=== PATIENT | female | born 1975 | race Caucasian/White ===

== ENCOUNTER 2019-04-28 01:21 | Day surgery (SDC) | payer OTHER, SELFPAY ==
[2019-04-13 14:04] VITALS: BMI 46.5
--- NOTE | 2019-04-28 08:35 | WPDANESEPP ---
Anes - Eval Pre Procedure Procedure: Operation Date: 04/28/19 13:30 Proposed Procedures p Hysteroscopy, Dilation and Curettage - Wesley Serrano MD Date/Time: 04/28/19 08:35 Pre Op Diagnosis: abn uterine bleeding, fibroids Patient Data Age: 44 Gender: F Height: 1.7 m Weight: 134.72 kg Allergies Allergy/AdvReac Type Severity Reaction Status Date / Time NSAIDS (Non-Steroidal Allergy Ulcers Verified 04/13/19 14:08 Anti-Inflamma Home Medications Medication Instructions Recorded Confirmed Type Vitamin B-12 1 tablet PO DAILY 04/13/19 04/13/19 History Vitamin D3 1 tablet PO DAILY 04/13/19 04/13/19 History biotin 1 tablet PO DAILY 04/13/19 04/13/19 History calcium carbonate [Calcium 600] 600 mg PO DAILY 04/13/19 04/13/19 History omeprazole 20 mg PO DAILY 04/13/19 04/13/19 History Patient hx anesthesia problems: none Family hx anesthesia problems: none PMFSH Past Medical History Medical History GERD (gastroesophageal reflux disease) PUD (peptic ulcer disease) Surgical History Surgical History History of cholecystectomy History of gastric bypass History of tonsillectomy Exam Day of Procedure 04/28/19 08:35 Patient weight: morbidly obese
--- NOTE | 2019-04-28 10:02 | P.HP_ITS ---
History of Present Illness History of Present Illness Consent: Risks, benefits, and alternatives have been discussed and questions answered. Patient agrees to proceed with procedure. Chief complaint: abn uterine bleeding, fibroids Narrative: Jessie Nguyen is a 44 year old female presented with histoy of abnormal uterine bleeding.patient repots bleeding inbetween cycles and history of fibroids. [facility] Past Medical History Medical History GERD (gastroesophageal reflux disease) PUD (peptic ulcer disease) Surgical History Surgical History History of cholecystectomy History of gastric bypass History of tonsillectomy Meds Home Medications and Allergies Home Medications Medication Instructions Recorded Confirmed Type Vitamin B-12 1 tablet PO DAILY 04/13/19 04/13/19 History Vitamin D3 1 tablet PO DAILY 04/13/19 04/13/19 History biotin 1 tablet PO DAILY 04/13/19 04/13/19 History calcium carbonate [Calcium 600] 600 mg PO DAILY 04/13/19 04/13/19 History omeprazole 20 mg PO DAILY 04/13/19 04/13/19 History Allergies Allergy/AdvReac Type Severity Reaction Status Date / Time NSAIDS (Non-Steroidal Allergy Ulcers Verified 04/13/19 14:08 Anti-Inflamma Assessment and Plan Assessment and plan (1) Abnormal uterine bleeding (AUB): Code(s): N93.9 - Abnormal uterine and vaginal bleeding, unspecified Status: Acute Assessment and Plan: Scheduled for a hysteroscopy dilation and curettage. risk and benefits reviewed with patient in detail.
[2019-04-28 11:44] VITALS: BP 140/82; PULSE 82; RESP 20; TEMP 36.4; O2SAT 99
--- NOTE | 2019-04-28 11:55 | P.PNAN_ITS ---
Anes - Initial Pre Proc Eval Procedure: Operation Date: 04/28/19 13:30 Proposed Procedures p Hysteroscopy, Dilation and Curettage - Wesley Serrano MD Date/Time: 04/28/19 11:55 Surgeon: Wesley Serrano MD Pre Op Diagnosis: abn uterine bleeding, fibroids Patient Data Age: 44 Gender: F Height: 1.7 m Weight: 133.4 kg Last Vital Signs Temp 36.4 C 04/28/19 11:44 Pulse 82 04/28/19 11:44 Resp 20 04/28/19 11:44 BP 140/82 04/28/19 11:44 Pulse Ox 99 04/28/19 11:44 Allergies Allergy/AdvReac Type Severity Reaction Status Date / Time NSAIDS (Non-Steroidal Allergy Ulcers Verified 04/13/19 14:08 Anti-Inflamma Home Medications Medication Instructions Recorded Confirmed Type Vitamin B-12 1 tablet PO DAILY 04/13/19 04/13/19 History Vitamin D3 1 tablet PO DAILY 04/13/19 04/13/19 History biotin 1 tablet PO DAILY 04/13/19 04/13/19 History calcium carbonate [Calcium 600] 600 mg PO DAILY 04/13/19 04/13/19 History omeprazole 20 mg PO DAILY 04/13/19 04/13/19 History Patient hx anesthesia problems: none Family hx anesthesia problems: none [facility] Past Medical History Medical History (Updated 04/28/19 @ 10:04 by Wesley Serrano MD) Abnormal uterine bleeding (AUB) GERD (gastroesophageal reflux disease) PUD (peptic ulcer disease) Surgical History Surgical History History of cholecystectomy History of gastric bypass History of tonsillectomy Anes - Eval Final PreProcedure Day of Procedure 04/28/19 11:55 Patient weight: morbidly obese Heart: regular rate and rhythm Lungs: clear to auscultation and normal air movement Airway: Mallampati scale class II Neurological: alert and oriented Last oral intake: 2 hours (tea 1000) ASA classification: III Emergent: no Anesthetic plan: proceed Anesthesia type and monitoring: general and standard monitoring Informed Consent: The patient's anesthetic plan and its attendant risks and benefits were discussed with the patient/family/POA. Questions were solicited and answers provided to the satisfaction of the patient/family/POA.
[2019-04-28] MEDS: LACTATED RINGERS 1,000 ML 30 ML IV CONT ×2 (12:00→14:34)
[2019-04-28 13:52] LABS: Beta HCG Quantitative < 2.39 mIU/ML
--- NOTE | 2019-04-28 14:31 | PM.OP ---
Procedure Note - Brief Procedure Note - Brief Date of procedure: 04/28/19 Pre-op diagnosis: abn uterine bleeding, fibroids Post-op diagnosis: same Procedure performed: hysteroscopy dilation and curettage Anesthesia: MAC and local Surgeon: Wesley Serrano MD Estimated blood loss (mL): 20 Drains: No Packing: No Pathology: yes Complications: None Condition: stable Disposition: observation Findings: large uterine cavity
[2019-04-28 14:34] VITALS: BP 113/78; PULSE 87; RESP 16; O2SAT 96
[2019-04-28 15:00] VITALS: BP 114/75; PULSE 68; RESP 14
--- NOTE | 2019-04-29 18:46 | OP_ITS ---
DATE OF PROCEDURE: 04/28/2019 PREOPERATIVE DIAGNOSIS: Abnormal uterine bleeding. POSTOPERATIVE DIAGNOSIS: Abnormal uterine bleeding. PROCEDURE PERFORMED: Hysteroscopy with dilation and curettage. ANESTHESIA: Paracervical block with MAC. COMPLICATIONS: None. ESTIMATED BLOOD LOSS: 20 cc. PROCEDURE IN DETAIL: The patient was taken to the operating room with IV running, prepped, and draped in the normal sterile fashion and placed in the dorsal lithotomy position. A bivalve speculum was placed into the vagina. Anterior lip of the cervix was grasped with single-tooth tenaculum and serially dilated with Hegar dilators. A hysteroscope was introduced. Large uterine cavity. Hysteroscope was removed and the uterus was curettage in all 4 quadrants to a gritty texture. Specimen was sent to pathology. Instruments were removed from the patient's vagina. Hemostasis was assured at the tenaculum site. Sponge, lap, and needle counts were correct x2. D I MT: Johnny
== END 2019-04-28 15:15 | disposition home or self-care (01) ==
PROVIDERS: Anesthesiology; PCP Internal Medicine; Visit Provider Obstetrics & Gynecology
PROC: 0U5B8ZZ Destruction of Endometrium, Via Natural or Artificial Opening Endoscopic (ICD-10-PCS; CPT 58563; principal; 2019-04-28 13:30)
DX: N93.9 Abnormal uterine and vaginal bleeding, unspecified (principal); K21.9 Gastro-esophageal reflux disease without esophagitis; K27.9 Peptic ulcer, site unspecified, unspecified as acute or chronic, without hemorrhage or perforation; Z98.84 Bariatric surgery status; E66.01 Morbid (severe) obesity due to excess calories; Z68.42 Body mass index [BMI] 45.0-49.9, adult
CPT/HCPCS: 58558; 36415; 84702; 88305; A9270; J2250; J2405; J2704; J3010; J7030; J7120

== ENCOUNTER 2020-12-23 02:07 | Day surgery (SDC) | payer OTHER, SELFPAY ==
[2020-12-11 13:22] VITALS: BMI 45.5
--- NOTE | 2020-12-20 14:03 | PM.HPGS ---
History of Present Illness History of Present Illness Consent: Risks, benefits, and alternatives have been discussed and questions answered. Patient agrees to proceed with procedure. Chief complaint: nausea, abdominal pain, hx of gastric ulcer Narrative: Jessie Nguyen is a 45 year old female Was found to have severe esophagitis on endoscopy 5 years ago and now is having epigastric pain suggestive of ulcer. She is taking omeprazole 20 mg daily Review of Systems Review of Systems: All systems reviewed & are unremarkable except as noted in HPI and below PMFSH Past Medical History Medical History Abnormal uterine bleeding (AUB) GERD (gastroesophageal reflux disease) PUD (peptic ulcer disease) Surgical History Surgical History History of cholecystectomy History of gastric bypass History of tonsillectomy Social History Social History Smoking status: Never smoker Alcohol intake: former Substance use: never Substance use type: does not use Living arrangements: with family Spiritual care concerns: No Meds Home Medications and Allergies Home Medications Medication Instructions Recorded Confirmed Type Vitamin B-12 1 tablet PO DAILY 04/13/19 12/23/20 History Vitamin D3 1 tablet PO DAILY 04/13/19 12/23/20 History biotin 1 tablet PO DAILY 04/13/19 12/23/20 History calcium carbonate [Calcium 600] 600 mg PO DAILY 04/13/19 12/23/20 History omeprazole 20 mg PO DAILY 04/13/19 12/23/20 History Allergies Allergy/AdvReac Type Severity Reaction Status Date / Time NSAIDS (Non-Steroidal Allergy Severe Ulcers Verified 12/23/20 09:56 Anti-Inflamma Exam Const: General: alert Orientation/consciousness: patient oriented x3 Resp: Auscultation: clear to auscultation bilaterally Cardio: Rhythm: regular rhythm GI: GI Palp: Yes Soft to palpation and No Tenderness to palpation present (GI) Neuro: General: patient oriented x3 Assessment and Plan Assessment and plan (1) Epigastric pain: Code(s): R10.13 - Epigastric pain Status: Acute Assessment and Plan: EGD with possible biopsy or dilatation or cautery.
[2020-12-23 09:58] VITALS: BP 149/90; PULSE 87; RESP 21; TEMP 37.1; O2SAT 100; BMI 43.8
[2020-12-23] MEDS: LACTATED RINGERS 1,000 ML 150 ML IV CONT (10:01)
--- NOTE | 2020-12-23 10:15 | P.PNAN_ITS ---
Anes - Initial Pre Proc Eval Procedure: Operation Date: 12/23/20 11:00 Proposed Procedures p Esophagogastroduodenoscopy - Chirag Mata MD Date/Time: 12/23/20 10:15 Surgeon: Chirag Mata MD Pre Op Diagnosis: nausea, abdominal pain, hx of gastric ulcer Patient Data Age: 45 Gender: F Height: 1.7 m Weight: 127 kg Last Vital Signs Temp 37.1 C 12/23/20 09:58 Pulse 87 12/23/20 09:58 Resp 21 H 12/23/20 09:58 BP 149/90 H 12/23/20 09:58 Pulse Ox 100 12/23/20 09:58 Allergies Allergy/AdvReac Type Severity Reaction Status Date / Time NSAIDS (Non-Steroidal Allergy Severe Ulcers Verified 12/23/20 09:56 Anti-Inflamma Home Medications Medication Instructions Recorded Confirmed Type Vitamin B-12 1 tablet PO DAILY 04/13/19 12/23/20 History Vitamin D3 1 tablet PO DAILY 04/13/19 12/23/20 History biotin 1 tablet PO DAILY 04/13/19 12/23/20 History calcium carbonate [Calcium 600] 600 mg PO DAILY 04/13/19 12/23/20 History omeprazole 20 mg PO DAILY 04/13/19 12/23/20 History Patient hx anesthesia problems: none Family hx anesthesia problems: none Results Review: All pre-operative results and documents have been reviewed as part of the pre-operative evaluation. [facility] Past Medical History Medical History Abnormal uterine bleeding (AUB) GERD (gastroesophageal reflux disease) PUD (peptic ulcer disease) Surgical History Surgical History History of cholecystectomy History of gastric bypass History of tonsillectomy Social History Social History Smoking status: Never smoker Alcohol intake: former Substance use: never Substance use type: does not use Living arrangements: with family Spiritual care concerns: No Anes - Eval Final PreProcedure Day of Procedure 12/23/20 10:15 Patient weight: morbidly obese Heart: regular rate and rhythm Lungs: clear to auscultation Airway: Mallampati scale class II Neurological: alert and oriented Last oral intake: >/= 8 hours ASA classification: III Emergent: no Anesthetic plan: proceed Anesthesia type and monitoring: general GIVS and standard monitoring Results Review: All pre-operative results and documents have been reviewed as part of the pre-operative evaluation. Informed Consent: The patient's anesthetic plan and its attendant risks and benefits were discussed with the patient/family/POA. Questions were solicited and answers provided to the satisfaction of the patient/family/POA.
[2020-12-23] MEDS: BENZOCAINE (*SP) 60 ML SPRAY CAN (HURRICAINE) 1 SPRAY MUCOUS MEM (10:51)
[2020-12-23] MEDS: SIMETHICONE ORAL SUSPENSION 20 MG/0.3 ML 30 ML BOTTLE 0.6 ML IRRIGATION (10:56)
[2020-12-23 11:02] VITALS: BP 101/91; PULSE 79; RESP 22; O2SAT 100
[2020-12-23 11:12] VITALS: BP 114/70; PULSE 82; RESP 23; O2SAT 100
[2020-12-23 11:22] VITALS: BP 108/66; PULSE 68; RESP 16; O2SAT 100
== END 2020-12-23 11:40 | disposition home or self-care (01) ==
PROVIDERS: PCP Internal Medicine; Visit Provider Internal Medicine Gastroenterology
PROC: 0DJ08ZZ Inspection of Upper Intestinal Tract, Via Natural or Artificial Opening Endoscopic (ICD-10-PCS; CPT 43235; principal; 2020-12-23 11:00)
DX: R10.13 Epigastric pain (principal); K21.9 Gastro-esophageal reflux disease without esophagitis; K31.89 Other diseases of stomach and duodenum; R11.0 Nausea; Z87.11 Personal history of peptic ulcer disease; E66.01 Morbid (severe) obesity due to excess calories; Z68.41 Body mass index [BMI] 40.0-44.9, adult
CPT/HCPCS: 43235; J2704; J7120

== ENCOUNTER 2021-11-21 08:48 | Outpatient (CLI) | payer OTHER, SELFPAY ==
[2021-11-21 09:27] LABS: Hemoglobin 11.4 g/dL (12.0-15.0)
== END 2021-11-21 08:49 | disposition home or self-care (01) ==
LOC: ANHSURGERY 08:51
PROVIDERS: PCP Internal Medicine; Visit Provider Obstetrics & Gynecology Gynecology
DX: Z01.818 Encounter for other preprocedural examination (principal); D21.9 Benign neoplasm of connective and other soft tissue, unspecified
CPT/HCPCS: 36415; 85014; 85018; 86850; 86900; 86901

== ENCOUNTER 2022-03-30 00:44 | Day surgery (SDC) | payer OTHER, SELFPAY ==
[2022-03-19 09:41] VITALS: BMI 44.0
--- NOTE | 2022-03-19 09:46 | PC.NURSE ---
Report to the Outpatient Waiting Room, entrance under the green pavilion located off [facility], at time 0815 on date 03/30/22. Planned Procedure Time: 1015. Time changes happen often and if your time is changed the preop area will call you the afternoon before. - You and your visitor will be asked to self-screen and do not enter if you have any COVID symptoms. - Only one visitor is requested with a max of two and NO children visitors are allowed at this time. - The patient visitor may be requested to leave or wait in car when not with patient due to distancing restrictions. - A mask is optional within the hospital at this time. Patients may have clear liquids (water, carbonated beverages, clear teas, apple juice) until 3 hours prior to surgery with a maximum of 20 ounces. - No food from midnight until time of surgery Take the following medications with a SIP of water the morning of surgery: NONE DO NOT STOP ANY OF YOUR OTHER PRESCRIPTION MEDICATIONS PRIOR TO SURGERY?EXCEPT THE FOLLOWING Medications to discontinue per physician: VITAMINS/SUPPLEMENTS Date to take last dose: 02/23/22 Please no make-up, nail belizean, hairspray, perfume, deodorant, or body powder the day of surgery. No jewelry (including any body piercings) or valuables the day of surgery, leave them at home. Please take a shower or bath the night before, or the morning of, surgery with an antibacterial soap. Wear comfortable, loose fitting clothing. - Jewelry must be removed prior to entering the operating room. Rings and piercings that are not removed may be cut off. - The hospital will not accept responsibility for valuables. - Please leave all valuables, including medications, at home the day of surgery. If you are going home after surgery, a licensed class a truck driver must drive you home. - NO public transportation without another adult if you receive anesthesia. - We recommend that an adult stay with you for 24 hours following discharge. - We also recommend that you do not drive, make important decision, drink alcoholic beverages, or take any drugs that were not prescribed by your health care provider for at least 24 hours after your discharge time. Follow any additional instructions given to you from your surgeon. If you or anyone in your household have experienced Covid symptoms in the past week, please notify your surgeon or the nurse liaison at the phone number below for possible testing. Telephone instructions given to PT - SEAN KOENIG and asked if any additional questions and then verbalized understanding. Patient advised to call surgeon office or pre surgery nurse liaison [phone] if any additional questions.
--- NOTE | 2022-03-30 07:40 | WPDHPUPDATE1 ---
History and Physical Update Update Date/Time: 03/30/22 07:40 History and Physical has been reviewed, including an updated exam of the patient. There are NO changes in the patient's condition. Risks, benefits, and alternatives have been discussed and questions answered. Patient agrees to proceed with procedure.
--- NOTE | 2022-03-30 07:41 | PM.HPGS ---
History of Present Illness History of Present Illness Consent: Risks, benefits, and alternatives have been discussed and questions answered. Patient agrees to proceed with procedure. Chief complaint: menorrhagia Narrative: Jessie Nguyen is a 46 year old female with prolonged vaginal bleeding. The patient has a known enlarged fibroid uterus and has been considering hysterectomy. The patient cycles had been regular changing only 2 to 3 pads per day until November of 2021 when she had the onset of daily bleeding. It was recommended to proceed with workup of the bleeding with hysteroscopy D and C. The risks of infection, bleeding, and perforation are reviewed. The patient voices understanding and agrees to proceed. Review of Systems Review of Systems: not repeated day of surgery; patient states no changes in status PMFSH Past Medical History Medical History (Updated 03/30/22 @ 08:59 by Tereza Vargas MD) GERD (gastroesophageal reflux disease) PUD (peptic ulcer disease) Surgical History Surgical History (Updated 03/30/22 @ 08:59 by Tereza Vragas MD) History of cholecystectomy History of gastric bypass History of loop electrical excision procedure (LEEP) 2011 with severe dysplasia and negative margins History of tonsillectomy Social History Social History Smoking status: Never smoker Alcohol intake: never Substance use: never Substance use type: does not use Living arrangements: with family Additional living arrangements comments: PARENTS Spiritual care concerns: No Meds Home Medications and Allergies Home Medications Medication Instructions Recorded Confirmed Type Vitamin B-12 1 tablet PO DAILY 04/13/19 03/30/22 History Vitamin D3 1 tablet PO DAILY 04/13/19 03/30/22 History biotin 1 tablet PO DAILY 04/13/19 03/30/22 History calcium carbonate 600 mg calcium 600 mg PO DAILY 04/13/19 03/30/22 History (1,500 mg) tablet (Calcium) omeprazole 20 mg capsule,delayed 20 mg PO DAILY 04/13/19 03/30/22 History release ferrous sulfate 325 mg (65 mg 325 mg PO HS 03/19/22 03/30/22 History iron) tablet (Iron (ferrous sulfate)) Allergies Allergy/AdvReac Type Severity Reaction Status Date / Time NSAIDS (Non-Steroidal Allergy Severe Ulcers Verified 03/30/22 08:14 Anti-Inflamma Exam Const: General: healthy appearing and alert Orientation/consciousness: patient oriented x3 Resp: Effort & Inspection: normal respiratory effort GI: GI Palp: Yes Soft to palpation, No Tenderness to palpation present (GI) and Yes Other GI palpation findings present ( uterus palpable at the umbilicus) : External Female Exam: normal external appearance Speculum Exam - Vagina: normal appearance of the vagina and normal vaginal discharge Speculum Exam - Cervix: normal appearance of the cervix Bimanual exam- vagina & uterus: enlarged ( approximately 20 week size) Bimanual Exam- Adnexa, other: normal adnexae and No adnexal tenderness Neuro: General: patient oriented x3 Assessment and Plan Assessment and plan (1) Abnormal uterine bleeding (AUB): Code(s): N93.9 - Abnormal uterine and vaginal bleeding, unspecified Status: Acute Assessment and Plan: prolonged vaginal bleeding will be investigated with D&C hysteroscopy
[2022-03-30 08:06] VITALS: BP 120/70; PULSE 86; RESP 16; TEMP 37; O2SAT 100
[2022-03-30] MEDS: ACETAMINOPHEN 500 MG TABLET 1000 MG PO (08:18)
[2022-03-30 08:37] LABS: Hematocrit 44.7 % (37.0-47.0); Hemoglobin 14.1 g/dL (12.0-15.0)
[2022-03-30] MEDS: LACTATED RINGERS 1,000 ML 30 ML IV CONT (08:37)
--- NOTE | 2022-03-30 08:42 | WPDANESEPPF ---
Anes - Initial Pre Proc Eval Procedure: Operation Date: 03/30/22 10:15 Proposed Procedures p Hysteroscopy Dilation and Curettage - Tereza Vargas MD Date/Time: 03/30/22 08:42 Surgeon: Tereza Vargas MD Pre Op Diagnosis: menorrhagia Patient Data Age: 46 Gender: F Height: 1.65 m Weight: 119.7 kg Last Vital Signs Temp 37.0 C 03/30/22 08:06 Pulse 86 03/30/22 08:06 Resp 16 03/30/22 08:06 BP 120/70 03/30/22 08:06 Pulse Ox 100 03/30/22 08:06 O2 Del Method Room Air 03/30/22 08:06 Allergies Allergy/AdvReac Type Severity Reaction Status Date / Time NSAIDS (Non-Steroidal Allergy Severe Ulcers Verified 03/30/22 08:14 Anti-Inflamma Home Medications Medication Instructions Recorded Confirmed Type Vitamin B-12 1 tablet PO DAILY 04/13/19 03/30/22 History Vitamin D3 1 tablet PO DAILY 04/13/19 03/30/22 History biotin 1 tablet PO DAILY 04/13/19 03/30/22 History calcium carbonate 600 mg calcium 600 mg PO DAILY 04/13/19 03/30/22 History (1,500 mg) tablet (Calcium) omeprazole 20 mg capsule,delayed 20 mg PO DAILY 04/13/19 03/30/22 History release ferrous sulfate 325 mg (65 mg 325 mg PO HS 03/19/22 03/30/22 History iron) tablet (Iron (ferrous sulfate)) Laboratory Tests 03/30/22 08:04 Hgb 14.1 g/dL g/dL (12.0-15.0) Hct 44.7 % % (37.0-47.0) Patient hx anesthesia problems: none Family hx anesthesia problems: none Results Review: All pre-operative results and documents have been reviewed as part of the pre-operative evaluation. [facility] Past Medical History Medical History Abnormal uterine bleeding (AUB) GERD (gastroesophageal reflux disease) PUD (peptic ulcer disease) Surgical History Surgical History History of cholecystectomy History of gastric bypass History of tonsillectomy Social History Social History Smoking status: Never smoker Alcohol intake: never Substance use: never Substance use type: does not use Living arrangements: with family Additional living arrangements comments: PARENTS Spiritual care concerns: No Anes - Eval Final PreProcedure Day of Procedure 03/30/22 08:42 Patient weight: morbidly obese Heart: regular rate and rhythm Lungs: clear to auscultation Airway: Mallampati scale class II Neurological: alert and oriented Last oral intake: >/= 8 hours ASA classification: III Emergent: no Anesthetic plan: proceed Anesthesia type and monitoring: general GIVS and standard monitoring Results Review: All pre-operative results and documents have been reviewed as part of the pre-operative evaluation. Informed Consent: The patient's anesthetic plan and its attendant risks and benefits were discussed with the patient/family/POA. Questions were solicited and answers provided to the satisfaction of the patient/family/POA.
[2022-03-30] MEDS: LIDOCAINE HCL 1% PF 30 ML VIAL 10 ML INFILTRATE (09:50)
[2022-03-30 09:58] VITALS: BP 101/65; PULSE 82; RESP 16; O2SAT 96
--- NOTE | 2022-03-30 09:58 | W.PM.PROC2 ---
Procedure Note - Detailed Date of Procedure 03/30/22 Pre-op Diagnosis menorrhagia Post-op Diagnosis Same Procedure Performed D&C hysteroscopy Surgeon Tereza Vargas MD Anesthesia MAC and Local Findings uterus sounds to 13cm and appears grossly normal; no fibroids in the endometrium Description of Procedure The patient is taken to the operating room and placed under anesthesia in the dorsal lithotomy position. She was prepped and draped in the usual sterile fashion. Barbeau speculum was placed in the vagina and the cervix is grasped on the anterior lip with a tenaculum. The cervix is injected in each quadrant with 1% lidocaine. The uterus is sounded to 13cm. The hysteroscope is placed and the canal followed visually. The camera perforated anteriorly and a large amount of fluid (400cc)was imbalanced. The camera was slowly backed up and the endometrial cavity identified. The cavity was able to be distended and visualized fully with no abnormalities noted the hysteroscope was removed. The medium sharp curette is used and identified in the cavity as no perforation was noted with the curette. A sharp curetting was performed until a good uterine cry was noted in all areas. Minimal material was obtained consistent with a thin endometrial appearance. All instruments are removed. Sponge, needle, and instrument counts are correct per the OR staff. The patient is awakened from anesthesia and taken to recovery in stable condition. Estimated Blood Loss 5 Drains No Packing No Pathology Yes ( Endometrial curettings) Complications Other complications ( uterine perforation) Condition Stable Disposition PACU
[2022-03-30 10:20] VITALS: BP 117/67; PULSE 69; RESP 16
[2022-03-30 10:40] VITALS: BP 110/65; PULSE 72; RESP 18
== END 2022-03-30 10:46 | disposition home or self-care (01) ==
PROVIDERS: Anesthesiology; PCP Internal Medicine; Visit Provider Obstetrics & Gynecology Gynecology
PROC: 0U5B8ZZ Destruction of Endometrium, Via Natural or Artificial Opening Endoscopic (ICD-10-PCS; CPT 58563; principal; 2022-03-30 10:15)
DX: N92.0 Excessive and frequent menstruation with regular cycle (principal); K21.9 Gastro-esophageal reflux disease without esophagitis; Z98.84 Bariatric surgery status
CPT/HCPCS: 58558; 36415; 85014; 85018; 88305; A9270; J2250; J2405; J2704; J3010; J7120

== ENCOUNTER 2023-09-09 07:24 | Outpatient (CLI) | payer OTHER, SELFPAY ==
--- NOTE | 2023-09-09 | ECHO_ITS ---
Patient Info Name: Jessie Nguyen Age: 48 years : 1975 Gender: Female Ht: 66 in Wt: 267 lbs BSA: 2.44 m2 HR: 75 bpm BP: 125 / 76 mmHg Heart Rhythm: Sinus Rhythm Technical Quality: Good Exam Date: 09/09/2023 7:42 AM Exam Location: Echo Lab Patient Status: Outpatient Admit Date: 09/09/2023 Staff Ordering Physician: NaviChance MD Customer Sales Specialist: Enedina Hahn RDCS Attending Provider: NaviChance MD Exam Type: CA echo doppler color flow Study Info Indications R01.1 - Cardiac murmur, unspecified Complete two-dimensional, color flow and Doppler transthoracic echocardiogram is performed. Summary 1. Left ventricular chamber dimension is normal. 2. Left ventricular systolic function is normal, estimated at 60-65%. 3. The left ventricular diastolic function is grade I diastolic dysfunction. 4. Right ventricular systolic function is normal. 5. Left atrial chamber dimension is moderately enlarged. 6. Right atrial chamber dimension is mildly enlarged. 7. The aortic valve is probable trileaflet, however, cannot rule out bicuspid valve.. 8. There is moderate aortic valve calcification. 9. There is mild to moderate aortic valve stenosis with a peak velocity of 279 cm/s, mean gradient of 21 mmHg, and aortic valve area of 1.3 cm2. 10. There is mild mitral valve regurgitation. 11. There is mild tricuspid valve regurgitation. Left Ventricle Left ventricular chamber dimension is normal. Left ventricular systolic function is normal, estimated at 60-65%. There is no increased left ventricular wall thickness. The left ventricular diastolic function is grade I diastolic dysfunction. Right Ventricle Right ventricular chamber dimension is normal. Right ventricular systolic function is normal. Left Atria Left atrial chamber dimension is moderately enlarged. Right Atria Right atrial chamber dimension is mildly enlarged. Atrial Septum Intact interatrial septum visualized by color flow imaging. Aortic Valve The aortic valve is probable trileaflet, however, cannot rule out bicuspid valve.. There is mild to moderate aortic valve stenosis with a peak velocity of 279 cm/s, mean gradient of 21 mmHg, and aortic valve area of 1.3 cm2. There is no aortic valve regurgitation. There is moderate aortic valve calcification. Pulmonic Valve The pulmonic valve is not well visualized. Mitral Valve There is mild mitral valve regurgitation. Tricuspid Valve There is mild tricuspid valve regurgitation. Pericardium/Pleural There is no pericardial effusion. Inferior Vena Cava Normal inferior vena cava with >50% collapse upon inspiration consistent with normal right atrial pressure, 3 mmHg. Aorta The aortic root size at the sinus of Valsalva is normal. Left Ventricular Outflow Tract Name Value Normal LVOT 2D LVOT Diameter 2.0 cm LVOT Doppler LVOT Peak Gradient 6 mmHg LVOT Mean Gradient 4 mmHg LVOT VTI 29 cm LVOT VTI/AV VTI Ratio 0.4 LVOT Stroke Volume 90 ml LVOT CO 6.7 l/min LVOT CI 2.8 l/min/m2
== END 2023-09-09 07:25 | disposition home or self-care (01) ==
PROVIDERS: PCP Internal Medicine; Visit Provider Internal Medicine
DX: R01.1 Cardiac murmur, unspecified (principal); I51.89 Other ill-defined heart diseases; I70.0 Atherosclerosis of aorta; I35.0 Nonrheumatic aortic (valve) stenosis; I34.0 Nonrheumatic mitral (valve) insufficiency; I36.1 Nonrheumatic tricuspid (valve) insufficiency
CPT/HCPCS: 93306

== ENCOUNTER 2023-11-13 07:27 | Outpatient (CLI) | payer OTHER, SELFPAY ==
--- NOTE | ~2023-11-13 | MR_ITS ---
EXAMINATION: MR hip RT wo con DATE: 11/13/2023 08:46 INDICATION: Right hip pain. TECHNIQUE: Magnetic resonance imaging (MRI) of the right hip was performed without intravenous contra st. COMPARISON: Right hip radiographs 10/29/2023 FINDINGS: Bones/cartilage: There is 10 degrees lumbar levoscoliosis. The femoral head/neck morphologies are normal. Small field- of-view images of right hip demonstrate partial-thickness cartilage loss and tiny osteophytes. Labrum: Right acetabular labrum is intact. Fluid: There is a small right hip joint effusion. There is mild right trochanteric bursitis. Soft tissues: The hamstring tendon origins are normal. The iliopsoas tendons are normal. The gluteus minimus and me dius tendons are normal. There is a 14.2 cm uterine fibroid. There is a 4.1 cm cyst in right ovary. T here is a 3.4 cm cyst in left ovary. IMPRESSION: 1. Mild right hip chondrosis. 2. Small right hip joint effusion. 3. Mild right trochanteric bursitis. 4. 14.2 cm uterine fibroid. 5. Bilateral ovarian cysts, likely follicular cysts. Reviewed, dictated and finalized at location A.
== END 2023-11-13 07:28 | disposition home or self-care (01) ==
LOC: MICIMG 07:28
PROVIDERS: PCP Internal Medicine; Visit Provider Orthopaedic Surgery
DX: M94.251 Chondromalacia, right hip (principal); M79.604 Pain in right leg; M25.451 Effusion, right hip; M70.61 Trochanteric bursitis, right hip; N83.202 Unspecified ovarian cyst, left side; N83.201 Unspecified ovarian cyst, right side
CPT/HCPCS: 73721

== ENCOUNTER 2023-12-22 12:19 | Outpatient (CLI) | payer BC, SELFPAY ==
--- NOTE | ~2023-12-22 | MM_ITS ---
EXAMINATION: MM diagnostic ajay RT w shahid HISTORY: Pulsatile right breast asymmetry TECHNIQUE: Additional 3-D tomosynthesis images of the right breast were performed and synthetic 2-D i mages were generated. CAD analysis was submitted and interpreted. COMPARISON: 11/26/2023 BREAST PARENCHYMAL COMPOSITION:Not Dense. There are scattered areas of fibroglandular density. FINDINGS: Parenchymal pattern of the right breast is unremarkable. Asymmetry in the right outer subar eolar lesion seen on prior exam is no longer present. No suspicious mass lesion or distortion. No marline picious lytic or calcification. IMPRESSION: No mammographic evidence for malignancy. BI-RADS Category 1: Negative Reviewed, dictated and finalized at location .
== END 2023-12-22 12:20 | disposition home or self-care (01) ==
PROVIDERS: PCP Internal Medicine; Visit Provider Obstetrics & Gynecology Gynecology
DX: R92.8 Other abnormal and inconclusive findings on diagnostic imaging of breast (principal)
CPT/HCPCS: 77061; 77065; G0279

== ENCOUNTER 2024-01-06 13:23 | Outpatient (CLI) | payer BC, SELFPAY ==
[2024-01-06 13:39] LABS: Basophils Absolute Auto 0.1 K/mm3 (0.0-0.1); Basophils Percent Auto 1.9 % (0.2-1.2); Eosinophils Absolute Auto 0.2 K/mm3 (0-0.3); Eosinophils Percent Auto 3.6 % (0-4.4); Hematocrit 35.7 % (37.0-47.0); Hemoglobin 10.6 g/dL (12.0-15.0); Immature Granulocyte Absolute 0.01 K/mm3 (0.00-0.031); Immature Granulocyte Percent A 0.2 % (0-0.5); Lymphocytes Absolute Auto 2.22 K/mm3 (0.9-3.2); Lymphocytes Percent Auto 37.9 % (18.3-44.2); Mean Corpuscular HGB Conc 29.7 g/dl (32-36); Mean Platelet Volume 11.1 fl (7.4-10.4); Monocytes Absolute Auto 0.6 K/mm3 (0.1-0.6); Monocytes Percent Auto 10.1 % (2.6-8.5); Neutrophils Absolute Auto 2.7 K/mm3 (1.3-6.7); Neutrophils Percent Auto 46.3 % (45.5-73.1); Platelet Count Result 263 k/mm3 (150-375); Red Blood Count 4.41 M/mm3 (4.2-5.4); Red Cell Distribution Width 16.8 % (11.5-14.5); White Blood Count 5.9 K/mm3 (4.5-10.0)
[2024-01-06 13:48] LABS: Hypochromasia 1+; Platelet Estimate Adequate (Adequate); Schistocytes None Seen
[2024-01-06 16:33] LABS: Iron 32 ug/dL (37-170)
[2024-01-06 16:43] LABS: Percent Iron Saturation 7 % (20-50)
[2024-01-06 17:09] LABS: Ferritin 5.92 ng/mL (11.1-264)
[2024-01-06 21:50] LABS: Alanine Aminotransferase 9 U/L (6-35); Alkaline Phosphatase 47 U/L (38-126); Anion Gap 8 mmol/L (4-12); Aspartate Amino Transferase 14 U/L (14-36); Bilirubin,Total 0.4 mg/dL (0.2-1.3); Blood Urea Nitrogen 8 mg/dL (7-17); Calcium 9.1 mg/dL (8.4-10.2); Carbon Dioxide 22 mmol/L (22-30); Chloride 106 mmol/L (98-107); Estimated Glomerular Filt Rate > 60; Glucose 82 mg/dL (65-110); Potassium 3.9 mmol/L (3.4-5.0); Sodium 136 mmol/L (137-145)
[2024-01-06 22:56] LABS: Folic Acid 15.5 ng/mL (2.76->20)
== END 2024-01-06 13:24 | disposition home or self-care (01) ==
LOC: ANHLAB 13:24
PROVIDERS: Visit Provider Internal Medicine Hematology & Oncology
DX: D50.8 Other iron deficiency anemias (principal)
CPT/HCPCS: 36415; 80053; 82607; 82728; 82746; 83540; 83550; 85025

== ENCOUNTER 2024-05-01 07:28 | Outpatient (CLI) | payer BC, SELFPAY ==
--- NOTE | 2024-05-01 | ECHO_ITS ---
Patient Info Name: Jessie Nguyen Age: 49 years : 1975 Gender: Female Ht: 67 in Wt: 227 lbs BSA: 2.25 m2 HR: 67 bpm BP: 117 / 79 mmHg Technical Quality: Good Exam Date: 05/01/2024 7:58 AM Exam Location: Echo Lab Patient Status: Outpatient Admit Date: 05/01/2024 Staff Ordering Physician: NaviChance MD Stacker And Sorter Operator: Enedina Hahn RDCS Attending Provider: IeshaChance MD Exam Type: CA echo doppler color flow Study Info Indications R01.1 - Cardiac murmur, unspecified Complete two-dimensional, color flow and Doppler transthoracic echocardiogram is performed. Summary 1. Complete two-dimensional, color flow and Doppler transthoracic echocardiogram is performed. 2. There is normal biventricular size and systolic function. 3. There is moderate aortic stenosis with heavy calcification of the right coronary cusp. Left Ventricle The left ventricle is normal in size and systolic function. The left ventricular ejection fraction is visually estimated to be 60-60%. Right Ventricle The right ventricle is normal in size and systolic function. Left Atria The left atrium is moderately dilated. Right Atria The right atrium is normal size. Atrial Septum The atrial septum is normal. Aortic Valve The aortic valve is heavily calcified especially of the right coronary cusp. There is moderate aortic stenosis. There is no aortic regurgitation. Pulmonic Valve The pulmonic valve is not well visualized. There is no color Doppler evidence of pulmonic valve regurgitation. Mitral Valve Mitral valve is normal. There is trace mitral regurgitation. Tricuspid Valve The tricuspid valve is normal. There is trace tricuspid regurgitation. Pericardium/Pleural Pericardium is normal in appearance with no evidence for significant pericardial effusion. Inferior Vena Cava Dilated inferior vena cava with >50% collapse upon inspiration consistent with elevated right atrial pressure, 8 mmHg. Aorta The aortic root at the level of the sinus of Valsalva measures 3.3 cm in diameter. Left Ventricular Outflow Tract Name Value Normal LVOT 2D LVOT Diameter 2.0 cm LVOT Doppler LVOT Peak Gradient 4 mmHg LVOT Mean Gradient 3 mmHg LVOT VTI 26 cm LVOT VTI/AV VTI Ratio 0.4 LVOT Stroke Volume 81 ml LVOT CO 4.7 l/min LVOT CI 2.1 l/min/m2 Pulmonic Valve Name Value Normal RVOT Doppler RVOT Peak Gradient 2 mmHg PV Doppler PV Peak Gradient 3 mmHg Mitral Valve Name Value Normal MV Doppler MV Decel Pike 407 cm/s2 MV PHT 67 ms MV Area (PHT) 3.3 cm2 4.0-5.0 MV Diastolic Function MV E Peak Velocity 94 cm/s MV A Peak Velocity 72 cm/s MV E/A 1.3 MV Decel Time 232 ms Tricuspid Valve Name Value Normal TV Regurgitation Doppler TR Peak Velocity 254 cm/s TR Peak Gradient 26 mmHg Estimated PAP/RSVP RA Pressure 8 mmHg <=5 PA Systolic Pressure 34 mmHg <36 RV Systolic Pressure 34 mmHg <36 Aorta Name Value Normal Ascending Aorta Ao Root Diameter (MM) 3.1 cm Ao Root Diam Index (MM) 1.4 cm/m2 Aortic Valve Name Value Normal AV Doppler AV Peak Velocity 255 cm/s AV Peak Gradient 23 mmHg AV Mean Gradient 15 mmHg AV VTI 59 cm AV Area (Cont Eq VTI) 1.4 cm2 >=3.0 AV Area (Cont Eq Brock) 1.3 cm2 AV Regurgitation 2D LVOT Area 3.1 cm2 Ventricles Name Value Normal LV Dimensions 2D/MM IVS Diastolic Thickness (2D) 0.8 cm 0.6-1.0 IVS Diastole Thickness (MM) 0.9 cm 0.6-0.9 LVID Diastole (2D) 5.0 cm 3.8-5.2 LVID Diastole (MM) 5.9 cm 3.8-5.2 LVIW Diastolic Thickness (2D) 1.0 cm 0.6-0.9 LVIW Diastolic Thickness (MM) 0.7 cm 0.6-0.9 LVID Systole (2D) 3.4 cm 2.2-3.5 LVID Systole (MM) 3.6 cm 2.2-3.5 LVOT Diameter 2.0 cm LV Mass (2D Cubed) 158.26 g 67.00-162.00 LV Mass Index (2D Cubed) 70 g/m2 43-95 Relative Wall Thickness (2D) 0.41 LV Mass (MM Cubed) 191.32 g 67.00-162.00 LV Mass Index (MM Cubed) 85 g/m2 43-95 Relative Wall Thickness (MM) 0.25 LV Fractional Shortening/Ejection Fraction 2D/MM LV Fractional Shortening (2D) 33 % 27-45 LV Fractional Shortening (MM) 39 % 27-45 LV EF (MM Teicholz) 69 % 54-74 LV EF (2D Teicholz) 61 % 54-74 LV Diastolic Volume (4C MOD) 112 ml LV EF (4C MOD) 52 % LV Diastolic Volume (2C MOD) 138 ml LV EF (2C MOD) 70 % LV Diastolic Volume (BP MOD) 125 ml 46-106 LV Diastolic Volume Index (BP MOD) 55 ml/m2 29-61 LV Systolic Volume (BP MOD) 47 ml 14-42 LV Systolic Volume Index (BP MOD) 21 ml/m2 8-24 LV EF (BP MOD) 62 % 54-74 LV Diastolic Length (4C) 8.4 cm LV Systolic Length (4C) 6.9 cm LV Stroke Volume (4C MOD) 58 ml Atria Name Value Normal LA Dimensions LA Dimension (MM) 4.3 cm 2.7-3.8 LA Volume (4C A-L) 99 ml LA Volume (BP A-L) 100 ml RA Dimensions RA Area (4C) 19.7 cm2 <=18.0 EchoPAC Name Value Normal AutoEF LVCO_BiP_Q (Jbvw8ULK) 4.6 l/min LVEF_BiP_Q (Yjdm0NCU) 62 % LVSV_BiP_Q (Quwg1CVR) 73 ml LVVED_BiP_Q (Igmj6MVE) 118 ml LVVES_BiP_Q (Ybyx2DBH) 45 ml HR_4Ch_Q (Tzyw4SJA) 68 bpm LVCO_4Ch_Q (Oyer1MPR) 4.3 l/min LVEF_4Ch_Q (Ifjq0AJS) 53 % LVLd_4Ch_Q (Fmxv2PEJ) 7.9 cm LVLs_4Ch_Q (Ewgi8XBS) 6.2 cm LVSV_4Ch_Q (Yhoj5DMW) 63 ml LVVED_4Ch_Q (Chxk4CAY) 118 ml LVVES_4Ch_Q (Pqqc2PXI) 55 ml HR_2Ch_Q (Hjsp0FFH) 60 bpm LVCO_2Ch_Q (Snkg8FAZ) 4.9 l/min LVEF_2Ch_Q (Hdnx9TOR) 69 % LVLd_2Ch_Q (Nhle7KVE) 8.6 cm LVLs_2Ch_Q (Ppkc0AXE) 6.9 cm LVSV_2Ch_Q (Gusj1EEP) 81 ml LVVED_2Ch_Q (Ysyh7NFC) 118 ml LVVES_2Ch_Q (Wbym6PZX) 37 ml PAMELA AA peak sys SL (AWMA) 18.1 % AAS peak sys SL (AWMA) 31.3 % AI peak sys SL (AWMA) 21.9 % AL peak sys SL (AWMA) 32.0 % AP peak sys SL (AWMA) 20.2 % peak sys SL (AWMA) 29.1 % AVC (AWMA) 454 ms BA peak sys SL (AWMA) 20.8 % BAS peak sys SL (AWMA) 13.2 % BI peak sys SL (AWMA) 17.9 % BL peak sys SL (AWMA) 21.4 % BP peak sys SL (AWMA) 27.5 % BS peak sys SL (AWMA) 12.8 % G peak SL(A2C) (AWMA) 19.5 % G peak SL(A4C) (AWMA) 20.6 % G peak SL(APLAX) (AWMA) 21.2 % G peak SL(Avg) (AWMA) 20.4 % MA peak sys SL (AWMA) 22.4 % MAS peak sys SL (AWMA) 18.9 % WI peak sys SL (AWMA) 20.6 % ML peak sys SL (AWMA) 19.2 % MP peak sys SL (AWMA) 25.4 % MS peak sys SL (AWMA) 15.7 % Report Signatures
--- OUTSIDE RECORDS SUMMARY | 2024-05-01 07:36 | XMS_ITS ---
Author Organization [facility] Address [address] [place], [place] [id number] Care Team Providers Care Shactor Name Role Phone Chance Mcelroy Unavailable Unavailable GLO STEIN Unavailable [phone] REASON FOR VISIT The patient has a painful and infected left great toenail. She had similar problems on the right and it resolved with nail surgery. She wishes to have the nail border on her left treated so it won't grow back again Medications Medication SIG (Take, Route, Fr equency, Duration) Notes Start Date End Date Status Cephalexin 500 MG 1 capsule Orally thr ee times a day for 10 days 09/06/2023 09/16/2023 Active Vital Signs Weight 267 lbs 09/06/2023 Weight-kg 121.11 kg 09/06/2023 Encounters Encounter Location Date Provider Diagnosis [facility] [address] [place], [place] [id number] 09/06/2023 GLO STEIN Ingrowing nail L60.0 ; Cellulitis of left toe L03.032 and Pain in left toe(s) M79.675 Assessments Encounter Date Diagnosis (ICD Code) Assessment Notes Treatment Notes Treatment Clinical Notes Section Notes 09/06/2023 Ingrowing nail (ICD-10 - L60.0) Matrixectomy of Nail Border: I discussed various treatment options to the patient for their toenail issue. I discussed removal of the offending nail border and chemical matrixectomy to prevent regrowth. The patient decided on permanent removal of the nail border. The consent was signed and placed in the patients chart and all questions were answered. Following skin prep, the toe was injected with 3ccs of a 1:1 mixture of 0.5% marcaine plain and 1% lidocaine plain. A digital tourniquet was applied and the offending nail border and nail matrix were removed. Three applications of 89% phenol for 30 seconds each, were applied to the nail matrix to prevent regrowth. The digital tourniquet was released and the toe was cleansed with isopropyl alcohol. A dry sterile compressive dressing was applied and the patient was given soaking instructions. The medial border of the left great toe was treated 09/06/2023 Cellulitis of left toe (ICD-10 - L03.032) Infection Protocol: Patient instructed to observe foot for signs and symptoms of infection, including but not limited to: increased redness and warmth to the area, increased drainage from the area, foul odor, and/or presence of fever/chills/naus ea/vomiting. If patient experiences any of the above they are to call the office immediately, if someone is not present in the office then proceed to the nearest ER. 09/06/2023 Pain in left toe(s) (ICD-10 - M79.675) Plan Of Treatment Medication Medication Name Sig Start Date Stop Date Notes Cephalexin 500 MG 1 capsule Orally thr ee times a day for 10 days 09/06/2023 09/16/2023 Treatment Notes Assessment Notes Ingrowing nail Matrixectomy of Nail Border: I discussed various treatment options to the patient for their toenail issue. I discussed removal of the offending nail border and chemical matrixectomy to prevent regrowth. The patient decided on permanent removal of the nail border. The consent was signed and placed in the patients chart and all questions were answered. Following skin prep, the toe was injected with 3ccs of a 1:1 mixture of 0.5% marcaine plain and 1% lidocaine plain. A digital tourniquet was applied and the offending nail border and nail matrix were removed. Three applications of 89% phenol for 30 seconds each, were applied to the nail matrix to prevent regrowth. The digital tourniquet was released and the toe was cleansed with isopropyl alcohol. A dry sterile compressive dressing was applied and the patient was given soaking instructions. The medial border of the left great toe was treated Cellulitis of left toe Infection Protocol: Patient instructed to observe foot for signs and symptoms of infection, including but not limited to: increased redness and warmth to the area, increased drainage from the area, foul odor, and/or presence of fever/chills/nausea/vomiting. If patient experiences any of the above they are to call the office immediately, if someone is not present in the office then proceed to the nearest ER. Next Appt Details Follow Up: 1 Week, Reason: P ost-op toenail surgery check Progress Notes * Bettye KOENIGB:1975 (48 yo F)Acc No.[id number]:09/06/2023 Progress Notes Patient: Jessie SALDAÑA Provider: Kilo Stein DPM :1975 A ge:48 Y S ex:Female Date:09/06/2023 Address:[address] [place] [address] Subjective: * Chief Complaints: * 1 . The patient has a painful and infected left great toenail. She had similar problems on the right and it resolved with nail surgery. She wishes to have the nail border on her left treated so it won't grow back again. * HPI: H PI: New Complaint P atient presents for a new patient consultation., Patient complains of an issue to left foot big toe nail infected on the lateral side. Patient states the toe is red and swollen. , MA: * ROS: G eneral / Constitutional: Patient denies c hills, fever, weakness, night sweats. M usculoskeletal: Patient denies c hildhood foot problems, weakness. ? P eripheral Vascular: Patient denies u lceration of feet, cold extremities. ? S kin: Patient denies u lcerations, discoloration. P atient complains of i ngrown nails. N eurologic: Patient denies b alance difficulty, confusion, difficulty speaking, dizziness. * Medical History: B lood transfusion, Anemia, Arthritis. * Family History: F ather: , cancer, Blood transfusion, asthma, skin cancer, Liver disease, hyperthyroid, Angina, heart disease, Low Blood Pressure. M other: alive, Acid Reflux, Artificial joint, neuropathy, anemia, Leg/Feet Cramps, Respiratory Disease, arthritis, Back Problem, Diabetic, Sleep Apnea. S ister: . Objective: * Vitals: W t:267lbs, Wt-k.11 kg. * Examination: C onstitutional: Constitutional T he patient is awake, alert, well developed, well groomed and well nourished.. D ermatologic: Ingrown Nail N ail is incurvated on the, medial border of the left great toenail, There is erythema present., There is pain on palpation. There is sanguinous drainage present. V ascular: Dorsalis pedis pulse: 2 /4, bilateral. Posterior tibial pulse: 2 /4, bilaterally. Capillary refill: l ess than 3 seconds. Edema: N o edema, bilateral. N eurologic: Gross sensation G ross sensation is intact to light touch..? M usculoskeletal: Muscle Strength M uscle strength is 5/5 in regards to dorsiflexion, plantarflexion, inversion, and eversion in bilateral lower extremities.. ? Assessment: * Assessment: 1. I ngrowing nail - L60.0 (Primary) 2 . C ellulitis of left toe - L03.032 3 . P ain in left toe(s) - M79.675 Plan: * Treatment: 2. C ellulitis of left toe Notes: Infection Protocol: Patient instructed to observe foot for signs and symptoms of infection, including but not limited to: increased redness and warmth to the area, increased drainage from the area, foul odor, and/or presence of fever/chills/nausea/vomiting. If patient experiences any of the above they are to call the office immediately, if someone is not present in the office then proceed to the nearest ER. ? * Procedure Codes: 1 1750 REMOVAL OF NAIL BED, Modifiers: TA * Follow Up: 1 Week (Reason: Post-op toenail surgery check) * Billing Information: * Visit Code: 85936 Office Visit, New Pt., Level 3. Modifiers: 25 * Procedure Codes: 15308 REMOVAL OF NAIL BED. Modifiers: TA * Sign off status: Completed true * Provider: Kilo Stein DPM Date: 0 09/06/2023 Generated for Jazlyn pizarro/Tesfaye/Magdi on: 0 05/01/2024 07:35 AM CDT History and Physical Notes * HPI (History of Present Illness) Category Sub-Category Detail Notes Category Not es HPI New Complaint Patient presents for a new patient consultation., Patient complains of an issue to left foot big toe nail infected on the lateral side. Patient states the toe is red and swollen. , MA: JR Examination Category Sub-Category Detail Notes Category Not es Dermatologic Ingrown Nail Nail is incurvat ed on the, medial border of the left great toenail, There is erythema present., There is pain on palpation. There is sanguinous drainage present Neurologic Gross sensation Gross sensation is intact to light touch. Vascular Dorsalis pedis pulse: 2/4, bilateral Edema: No edema, bilateral Capillary refill: less than 3 seconds Posterior tibial pulse: 2/4, bilaterally Musculoskeletal Muscle Strength Muscle strength is 5/5 in regards to dorsiflexion, plantarflexion, inversion, and eversion in bilateral lower extremities. Constitutional Constitutional The patient is a wake, alert, well developed, well groomed and well nourished.
--- OUTSIDE RECORDS SUMMARY | 2024-05-01 07:36 | XMS_ITS ---
Author Organization [facility] Address [address] [place], [place] [id number] Care Team Providers Care Angio Technologist Name Role Phone Navi Chance Unavailable Unavailable GLO STEIN Unavailable [phone] REASON FOR VISIT Patient returns to the office following toenail surgery. She is doing well. She notices some clear-bloody drainage; but it is getting better each day. She has no pain Medications Medication SIG (Take, Route, Fr equency, Duration) Notes Start Date End Date Status Cephalexin 500 MG 1 capsule Orally thr ee times a day for 10 days 09/06/2023 09/16/2023 Active Encounters Encounter Location Date Provider Diagnosis [facility] [address] [place], [place] [id number] 09/13/2023 GLO STEIN Ingrowing nail L60.0 and Encounter for other specified surgical aftercare Z48.89 Assessments Encounter Date Diagnosis (ICD Code) Assessment Notes Treatment Notes Treatment Clinical Notes Section Notes 09/13/2023 Ingrowing nail (ICD-10 - L60.0) Post-op Matrixectomy The patient will continue foot soaks and covering with a dry bandage until drainage has stopped. The patient will monitor this area for any signs of recurrence and contact the office with any problems. Patient will follow-up on an as-needed basis. 09/13/2023 Encounter for other specified surgical aftercare (ICD-10 - Z48.89) Plan Of Treatment Treatment Notes Assessment Notes Ingrowing nail Post-op Matrixectomy The patient will continue foot soaks and covering with a dry bandage until drainage has stopped. The patient will monitor this area for any signs of recurrence and contact the office with any problems. Patient will follow-up on an as-needed basis. Next Appt Details Follow Up: prn, Reason: Progress Notes * Alberto KOENIGaDOB:1975 (48 yo F)Acc No.[id number]:09/13/2023 Patient: Jessie SALDAÑA Provider: Kilo Stein DPM :1975 A ge:48 Y S ex:Female Date:09/13/2023 Address:[address] [place], [place] [id number] Subjective: * Chief Complaints: * 1 . Patient returns to the office following toenail surgery. She is doing well. She notices some clear-bloody drainage; but it is getting better each day. She has no pain. * HPI: H PI: Follow Up Visit P chantell presents for follow up visit for left great toenail surgery. , Patient states their problem is, improving. There was slight bleeding and drainage on the bandage when removed., , MA: [facility]. * Medical History: * Medications: T aking Cephalexin 500 MG Capsule 1 capsule Orally three times a day , stop date 09/16/2023 Objective: * Examination: D ermatologic: Ingrown Nail N ail surgery site is healing well. No signs of infection. Assessment: * Assessment: 1. I ngrowing nail - L60.0 (Primary) 2 . E ncounter for other specified surgical aftercare - Z48.89 Plan: * Treatment: * Procedure Codes: 9 9024 POSTOP FOLLOW-UP VISIT * Follow Up: p rn * Billing Information: * Visit Code: * Procedure Codes: 15999 POSTOP FOLLOW-UP VISIT. * Sign off status: Completed true * Provider: Kilo Stein DPM Date: 0 09/13/2023 Generated for Jazlyn pizarro/Tesfaye/Magdi on: 0 05/01/2024 07:36 AM CDT History and Physical Notes * HPI (History of Present Illness) Category Sub-Category Detail Notes Category Not es HPI Follow Up Visit Patient presents for follow up visit for left great toenail surgery. , Patient states their problem is, improving. There was slight bleeding and drainage on the bandage when removed., , MA: [facility] Examination Category Sub-Category Detail Notes Category Not es Dermatologic Ingrown Nail Nail surgery sit e is healing well. No signs of infection
--- OUTSIDE RECORDS SUMMARY | 2024-05-01 07:36 | XMS_ITS | Clinical Summary ---
Author Organization [facility] Liliam murray Liliana Address [address] [place] [address] Care Team Providers Care Nut Culler Name Role Phone Unavailable Primary Care Provider Unavailabl e Allergies Active Allergy Reactions Criticality Noted Date Comments Nsaids (Non-Steroidal Anti-Inflammatory Drug) Other (See Comments) 12/28/2023 Causes ulcers in stomach Medications ergocalciferol (VITAMIN D2) 50,000 unit capsule Take 1 Capsule by mouth every 30 days. Active omeprazole (PriLOSEC) 20 mg Capsule, Delayed Release(E.C.) Take 20 mg by mouth daily. Active Biotin 1 mg Tablet Take by mouth. Active CALCIUM CARBONATE ORAL Take by mouth. Active Active Problems No known active problems Encounters Date Type Department Care Team Description 04/29/2024 External Device Data ST[facility] ABSTRACTION Provider, Abstract 04/28/2024 External Device Data [facility] ABSTRACTION Provider, Abstract 04/25/2024 External Device Data [facility] ABSTRACTION Provider, Abstract 04/11/2024 External Device Data [facility] ABSTRACTION Provider, Abstract 04/04/2024 External Device Data [facility] ABSTRACTION Provider, Abstract 03/16/2024 4:30 PM SOAKERS SUPERVISOR Telephone Check Up [facility] - [address] [place] [address] Salomón Qiu MD Chronic anemia (Primary Dx) 03/16/2024 Orders Only [facility] [address] [place] [address] Salomón Qiu MD 03/16/2024 External Device Data ST[facility] ABSTRACTION Provider, Abstract 03/15/2024 External Device Data [facility] ABSTRACTION Provider, Abstract 03/14/2024 External Device Data [facility] ABSTRACTION Provider, Abstract 03/14/2024 Orders Only [facility] - [address] [place] [address] Salomón Qiu MD 03/07/2024 External Device Data ST[facility] ABSTRACTION Provider, Abstract 03/01/2024 Orders Only [facility] - [address] [place] [address] Salomón Qiu MD from Last 3 Months Family History Medical History Relation Name Comments No Known Problems Brother Heart Disease Father Prostate Cancer Father Diabetes Mother Heart Disease Mother No Known Problems Sister Relation Name Status Comments Brother Alive Father Mother Alive Sister Social History Tobacco Use Types Packs/Day Years Used Date Smoking Tobacco: Never Smokeless Tobacco: Never Tobacco Cessation:Counseling Given: Not Answered Alcohol Use Standard Drinks/Week Comments Never 0 (1 standard drink = 0.6 oz pur e alcohol) Comments Unknown Sex and Gender Information Value Date Recorded Sex Assigned at Not on file Legal Sex Female 9:44 AM CDT Gender Identity Not on file Sexual Orientation Not on file Last Filed Vital Signs Vital Sign Reading Time Taken Comments Blood Pressure 125/77 12/28/2023 1:34 PM SOAKERS SUPERVISOR Pulse 61 12/28/2023 1:34 PM SOAKERS SUPERVISOR Temperature 36.3 C (97.3 F) 12/28/2023 1:34 PM SOAKERS SUPERVISOR Respiratory Rate 16 12/28/2023 1:34 PM SOAKERS SUPERVISOR Oxygen Saturation 99% 12/28/2023 1:34 PM SOAKERS SUPERVISOR Inhaled Oxygen Concentration - - Weight 110.7 kg (244 lb) 12/28/2023 1:34 PM SOAKERS SUPERVISOR Height 167.6 cm (5' 6 ) 12/28/2023 1:34 PM SOAKERS SUPERVISOR Body Mass Index 39.38 12/28/2023 1:34 PM SOAKERS SUPERVISOR Plan of Treatment Upcoming Encounters Date Type Department Care Team (Late st Contact Info) Description 05/18/2024 2:00 PM CDT Office Visit [facility] - [address] [place] [address] Salomón Qiu MD [address] [place] [address] Health Maintenance Due Date Last Done Comments Pre-Diabetes and Diabetes Screening 1973 DTAP/TDAP/TD VACCINES (1 - Tdap) 1992 HEPATITIS B VACCINES (1 of 3 - 19+ 3-dose series) 1992 CERVICAL CANCER SCREENING 04/28/2003 BREAST CANCER SCREENING 2013 COLORECTAL SCREENING 2018 Colorectal Cancer Screening 2018 FIT-DNA Q 3 years 2018 FIT/FOBT Q 1 year 2018 Flex Sig/CT Colonography Q 5 years 2018 ZOSTER VACCINE (1 of 2) 04/28/2023 INFLUENZA VACCINE Completed 12/13/2023, 01/21/2016 Procedures Procedure Name Priority Date/Time Associated Diagnosis Comments IRON LEVEL Routine 03/13/2024 4:01 PM SOAKERS SUPERVISOR COMPREHENSIVE METABOLIC PANEL Routine 03/13/2024 2:15 PM SOAKERS SUPERVISOR CBC WITH DIFFERENTIAL Routine 02/22/2024 4:50 PM SOAKERS SUPERVISOR COMPREHENSIVE METABOLIC PANEL Routine 02/22/2024 3:59 PM SOAKERS SUPERVISOR COMPREHENSIVE METABOLIC PANEL Routine 02/22/2024 3:53 PM SOAKERS SUPERVISOR from Last 3 Months Results * IRON LEVEL (03/13/2024 4:01 PM SOAKERS SUPERVISOR) Blood us Salomón Qiu MD CHEMISTRY ORDERABLES Final Resu lt * COMPREHENSIVE METABOLIC PANEL (03/13/2024 2:15 PM SOAKERS SUPERVISOR) Only the most recent of3 resultswithin the time period is included. Blood us Salomón Qiu MD CHEMISTRY ORDERABLES Final Resu lt * CBC WITH DIFFERENTIAL (02/22/2024 4:50 PM SOAKERS SUPERVISOR) Blood us Salomón Qiu MD HEMATOLOGY ORDERABLES Final Res ult from Last 3 Months Insurance BLUE JAYS/TRUE BLUE PPO
--- OUTSIDE RECORDS SUMMARY | 2024-05-01 07:36 | XMS_ITS | Continuity of Care Document ---
Author Organization [facility] Address [address] [place] [address] [address] [place] [address] Phone Care Team Providers Care Log Washer Name Role Phone Florence Tinajero Unavailable Unavailable Advance Directives Directive Yes / No Effective Date File Name No Information Encounters Encounter Description Practice Location Reason(s) For Visit Diagnoses Date Provider Providers Copied on Encounter [facility], [id number] [place] [address] [address], [place], [place], [id number], [place] tel:[phone] [facility] No Information Sep-0 7-200 6 Tanvi Henriquez. [address] , [address], [place], [address], [place]. tel:[phone] Family History Family Member Type Diagnosis Age At Onset No Information Payers Payer name Insurance type Covered alliance party ID Authoriza tion(s) No Information Social History Type Description Quantity Date Captured Comments Sex Female Smoking Status No Information Chief Complaint And Reason For Visit No Information Reason For Referral Reason For Referral No Information History Of Present Illness Encounter Date Complaint History Of Prese nt Illness No Information Functional Status Date Functional Assessmen t No Information Instructions Date Instruction Additional Infor mation No Information Assessments Type Assessment Date No Information Patient Care Teams Name Effective Dates (start - stop) Status Members No Information
--- OUTSIDE RECORDS SUMMARY | 2024-05-01 07:36 | XMS_ITS | Clinical Summary ---
Author Organization [facility] Address [address] [place] [address] Care Team Providers Care Rfid Systems Architect Name Role Phone Unavailable Primary Care Provider Unavailabl e Source Comments [facility],non-owned Affiliates and Associated Physician Practices is amultiple site organization consisting of ambulatory clinics and hospital sitesin [place], [place], [place] and [place]. This disclosure is being madepursuant to the Care Everywhere program and may not contain all information available regarding this patient. Last updated [employer] Allergies No known active allergies Medications * Be aware that medications may not be up to date on this document. Alwaysverify current medications with the patient. Medication Sig Dispensed Refills Start Date End Date Status OMEPRAZOLE (ZEGERID) 20 MG PACK Take by mouth. Active vitamin D2 (ERGOCALCIFEROL) 44119 UNIT capsule Take 1 Cap by mouth every 30 days. Active omeprazole (PRILOSEC) 20 MG capsuleIndications:Bar iatric surgery status Take 1 Cap by mouth daily before breakfast. 30 Cap 11 12/24/2010 Active Social History Tobacco Use Types Packs/Day Years Used Date Smoking Tobacco: Never Smokeless Tobacco: Never Alcohol Use Standard Drinks/Week Comments Not Asked 0 (1 standard drink = 0.6 oz pur e alcohol) Sex and Gender Information Value Date Recorded Sex Assigned at Not on file Gender Identity Not on file Sexual Orientation Not on file Last Filed Vital Signs Vital Sign Reading Time Taken Comments Blood Pressure 123/78 12/24/2010 1:17 PM CDT Pulse 67 12/24/2010 1:17 PM CDT Temperature 36.6 C (97.8 F) 03/25/2009 2:14 PM ELECTRICAL SUPERINTENDENT Respiratory Rate 18 12/24/2010 1:17 PM CDT Oxygen Saturation - - Inhaled Oxygen Concentration - - Weight 107.3 kg (236 lb 8 oz) 12/24/2010 1:17 PM CDT Height 163.8 cm (5' 4.5 ) 12/24/2010 1:17 PM CDT Body Mass Index 39.97 12/24/2010 1:17 PM CDT Plan of Treatment Health Maintenance Due Date Last Done Comments COLOGUARD (AGES 45-75) - COL ON CA SCREENING 1973 COLON MONITORING 1973 COLONOSCOPY - COLON CA SCREENING 1973 CT COLONOGRAPHY - COLON CA SCREENING 1973 Colorectal Cancer Screening 1973 FIT - COLON CA SCREENING 1973 FLEX SIG - COLON CA SCREENING 1973 LIPID TESTING 1973 MAMMOGRAM 1973 PAP SMEAR 1973 HIV SCREENING 1988 HEPATITIS C SCREENING 04/23/1991 DTAP/TDAP/TD VACCINES (1 - Tdap) 1992 HEPATITIS B VACCINE (1 of 3 - 19+ 3-dose series) 1992 PNEUMOCOCCAL VACCINE 50+ (1 of 1 - PCV) 04/28/2023 ZOSTER VACCINE (1 of 2) 04/28/2023 COVID-19 VACCINE (1 - 2023-2 5 season) 2023 INFLUENZA VACCINE (#1) 2023 DEPRESSION SCREENING 02/23/2024 HIB VACCINE Aged Out No longer eligi ble based on patient's age to complete this topic HPV VACCINE Aged Out No longer eligi ble based on patient's age to complete this topic MENINGOCOCCAL (Group B) VACCINE Aged Out No longer eligible based on patient's age to complete this topic MENINGOCOCCAL VACCINE Aged Out No farrah pramod eligible based on patient's age to complete this topic PNEUMOCOCCAL VACCINE Aged Out No long er eligible based on patient's age to complete this topic
--- OUTSIDE RECORDS SUMMARY | 2024-05-01 07:37 | XMS_ITS | Patient Health Record ---
Author Organization [facility] Address [address] [place], [place] [id number] Care Team Providers Care Cartridge Feeder Name Role Phone Chance Mcelroy Unavailable Unavailable SNOOK, GLO Unavailable [phone] Reason For Referral No Information Vital Signs Weight-kg 121.11 kg 09/06/2023 Weight 267 lbs 09/06/2023 Encounters Encounter Location Date Provider Diagnosis [facility] [place] [address] [place], [place] [id number] 09/06/2023 GLO SNOOK Ingrowing nail L60.0 ; Cellulitis of left toe L03.032 and Pain in left toe(s) M79.675 [facility] [place] [address] [place], [place] [id number] 09/13/2023 GLO SNOOK Ingrowing nail L60.0 and Encounter for other specified surgical aftercare Z48.89 Assessments Encounter Date Diagnosis (ICD Code) Assessment Notes Treatment Notes Treatment Clinical Notes Section Notes 09/06/2023 Cellulitis of left toe (ICD-10 - [...] then proceed to the nearest ER. 09/06/2023 Ingrowing nail (ICD-10 - L60.0) Matrixectomy [...] of the left great toe was treated 09/13/2023 Ingrowing nail (ICD-10 - L60.0) Post-op Matrixectomy The patient will continue foot soaks and covering with a dry bandage until drainage has stopped. The patient will monitor this area for any signs of recurrence and contact the office with any problems. Patient will follow-up on an as-needed basis. 09/13/2023 Encounter for other specified surgical aftercare (ICD-10 - Z48.89) 09/06/2023 Pain in left toe(s) (ICD-10 - M79.675) Plan Of Treatment No Information Insurance Providers Payer Name Payer Address Payer Phone Subscriber Number Group Number Insured Name Patient Relationship to Insured Coverage Start Date Coverage End Date [facility] [address] [address] [place] [id number] Jessie Nguyen Self - patient is the insured Medical (General) History Medical History History ICD Code Blood transfusion anemia Arthritis
--- OUTSIDE RECORDS SUMMARY | 2024-05-01 07:37 | XMS_ITS | Data Portability ---
Author Organization [facility] [place] Address [address] [place] [address] Care Team Providers Care Medic Technician Name Role Phone DANY SAMEER Primary Care Provider MAICO TAYLOR Procurement Buyer [phone] Assessment Encounter Date Assessment Date Assessment LastModified by Organization Details LastModified Time 08/09/2023 08/09/2023 We will obtain blood work her old record also she needs a complete echo colon cancer screening we will have to look she thinks she is up-to-date with a colonoscopy that was done because of her anemia in the past follow-up with me in 4 months. For pain Tylenol if needed because with her history of anemia and bleeding we would like for her to avoid NSAID [email or web address] Not available 08/11/2023 14:50:32 10/14/2023 10/14/2023 for the leg we will try Medrol Dosepak anemia be worked up with CBC CMP and iron kinetics obesity healthy lifestyle care instructions obtain records from previous clinic regular visit with me in 6 months mammogram Cologuard and see ortho [email or web address] Not available 10/23/2023 20:04:25 12/13/2023 12/13/2023 flu shot. Health y lifestyle care instructions. She is seeing Hematology for the anemia. 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 Just had echo in August of 2023. She refuses sleep study. follow up 3-4 months Not available 12/26/2023 11:06:46 04/10/2024 04/10/2024 echocardiogram lifestyle care instructions she sees cashier and waiter/waitress regularly we will get mammogram and Pap smear from there she does not want a pneumococcal vaccination obtain her colonoscopy report [email or web address] Not available 04/24/2024 20:34:07 Plan of Treatment Reminders Order Date Submit Date Provider Last Modified By Organization Details Last Modified Time Details Appointments ANY 15 2024 10:15A Jesus Mcelroy MD Not available Not available Not available Lab CMP, serum or plasma 2023 024 [facility], [address], [place], [address], 10/22/2023 03:37:04 CBC w/ auto diff 2023 024 [facility] [address] [address], [address], [place], [address], 10/22/2023 03:37:06 ferritin, serum or plasma 2023 024 [facility], [address], [address], [place], [address], 10/22/2023 03:37:05 iron + total iron-bind ing capacity (TIBC), serum 2023 024 [facility], [address], [address], [place], [address], 10/22/2023 03:37:05 iron + total iron-bind ing capacity (TIBC), serum 2023 [facility]24 [facility] [address] [address], [address], [place], [address], 08/24/2023 16:30:46 ferritin, serum or plasma 2023 024 monse Ramirez, [address], [address], [place], [address], 08/24/2023 16:30:53 CBC w/ auto diff 2023 024 [facility], [address], [address], [place], [address], 08/24/2023 16:31:02 CMP, serum or plasma 2023 024 [facility], [address], [address], [place], [address], 08/12/2023 12:42:36 vitamin B12 + folate, serum or blood 2023 024 [facility], [address], [address], [place], [address], 08/24/2023 16:30:06 TSH, ultra-sen sitive, serum 2023 024 [facility], [address], [address], [place], [address], 08/24/2023 16:30:34 unlisted lab - T4, free 2023 024 [facility], [address], [address], [place], [address], 08/24/2023 16:30:22 T3, free, serum or plasma 2023 024 [facility], [address], [address], [place], [address], 08/24/2023 16:31:12 Referral None recorded. Procedures None recorded. Surgeries None recorded. Imaging US, echocardi ogram 2024 025 [facility] [address], [place], [address], 04/11/2024 10:00:51 US, echocardi ogram 2023 024 [facility] ([facility]), [address], [place], [address], 09/09/2023 10:42:09 Medication Orders Medrol (Chidi) 4 mg tablets in a dose pack 2023 024 [id number], [address], [place], [place], [id number], 12/13/2023 14:32:13 Patient TargetsNo targets recorded. Patient Instructions Encounter Date Encounter Id Patient Instructions Last Modified By Organization Details Last Modified Time 10/14/2023 [id number] A healthy lifestyle: care instructions Not available 10/14/2023 17:50:47 12/13/2023 [id number] A healthy lifestyle: care instructions [email or web address] Not available 12/13/2023 18:22:10 04/10/2024 [id number] A healthy lifestyle: care instructions Not available 04/10/2024 16:23:25 Reason for Referral None Reported. Results Created Date Observation Date Name Description Value Unit Range Abnormal Flag Note LastModifiedBy Organization Detail LastModifiedTime 08/12/19 24 08/12/2023 Folat e [Mass /volu me] in Serum or Plasm a folate folat e Not Available Not Available 04/10/2024 03:52:40 08/12/19 24 08/12/2023 Cobal bernal (Carmen min B12) [Mass /volu me] in Serum or Plasm a vb12 vb12 Not Available Not Availa ble 04/10/2024 03:52:40 08/12/19 24 08/12/2023 Tyra tin [Mass /volu me] in Serum or Plasm a ferritin low tyra tin Not Available Not Available 04/10/2024 03:52:40 08/12/19 24 08/12/2023 Thyro tropi n [Unit s/vol ume] in Serum or Plasm a thyroid-stim ulating hormone low thyro id-st imula ting hormo ne Not Available Not Available 04/10/2024 03:52:40 08/12/19 24 08/12/2023 Triio dothy shelly e (T3) Free [Mass /volu me] in Serum or Plasm a free T3 free T3 Not Available Not Available 04/10/2024 03:52:40 08/12/19 24 08/12/2023 Thyro xine (T4) free [Mass /volu me] in Serum or Plasm a free T4 free T4 Not Available Not Available 04/10/2024 03:52:39 08/12/19 24 08/12/2023 Compr ehens prince metab olic 2000 panel - Serum or Plasm a sodium low sodiu m Not Available Not Available 04/10/2024 03:52:39 08/12/19 24 08/12/2023 Compr ehens prince metab olic 2000 panel - Serum or Plasm a potassium potas sium Not Available Not Available 04/10/2024 03:52:39 08/12/19 24 08/12/2023 Compr ehens prince metab olic 2000 panel - Serum or Plasm a chloride high chlor damaris Not Available Not Available 04/10/2024 03:52:39 08/12/19 24 08/12/2023 Compr ehens prince metab olic 2000 panel - Serum or Plasm a carbon dioxide carbo n dioxi de Not Available Not Available 04/10/2024 03:52:39 08/12/19 24 08/12/2023 Compr ehens prince metab olic 2000 panel - Serum or Plasm a anion gap low anion gap Not Available Not Available 04/10/2024 03:52:39 08/12/19 24 08/12/2023 Compr ehens prince metab olic 2000 panel - Serum or Plasm a glucose gluco se Not Available Not Available 04/10/2024 03:52:39 08/12/19 24 08/12/2023 Compr ehens prince metab olic 2000 panel - Serum or Plasm a BUN BUN Not Available Not Availa ble 04/10/2024 03:52:39 08/12/19 24 08/12/2023 Compr ehens prince metab olic 2000 panel - Serum or Plasm a creatinine creat inine Not Available Not Available 04/10/2024 03:52:39 08/12/19 24 08/12/2023 Compr ehens prince metab olic 2000 panel - Serum or Plasm a GFR >60 GFR Not Available Not Availa ble 04/10/2024 03:52:39 08/12/19 24 08/12/2023 Compr ehens prince metab olic 2000 panel - Serum or Plasm a alkaline phosphatase alkal ine phosp hatas e Not Available Not Available 04/10/2024 03:52:39 08/12/19 24 08/12/2023 Compr ehens prince metab olic 2000 panel - Serum or Plasm a alanine aminotransfe rase juan manuel ne amino trans feras e Not Available Not Available 04/10/2024 03:52:39 08/12/19 24 08/12/2023 Compr ehens prince metab olic 2000 panel - Serum or Plasm a aspartate aminotransfe rase aspar fung amino trans feras e Not Available Not Available 04/10/2024 03:52:39 08/12/19 24 08/12/2023 Compr ehens prince metab olic 2000 panel - Serum or Plasm a bilirubin, total bilir ubin, total Not Available Not Available 04/10/2024 03:52:39 08/12/19 24 08/12/2023 Compr ehens prince metab olic 2000 panel - Serum or Plasm a calcium calci um Not Available Not Available 04/10/2024 03:52:39 08/12/19 24 08/12/2023 Compr ehens prince metab olic 2000 panel - Serum or Plasm a total protein low total prote in Not Available Not Available 04/10/2024 03:52:39 08/12/19 24 08/12/2023 Compr ehens prince metab olic 2000 panel - Serum or Plasm a albumin album in Not Available Not Available 04/10/2024 03:52:39 08/12/19 24 08/12/2023 Compr ehens prince metab olic 2000 panel - Serum or Plasm a globulin low globu nestor Not Available Not Available 04/10/2024 03:52:39 08/12/19 24 08/12/2023 Compr ehens prince metab olic 2000 panel - Serum or Plasm a A/G ratio A/G ratio Not Available Not Available 04/10/2024 03:52:39 08/12/19 24 08/12/2023 Iron and Iron jodie ng capac ity panel - Serum or Plasm a total iron binding capacity total iron jodie ng capac ity Not Available Not Available 04/10/2024 03:52:39 08/12/19 24 08/12/2023 Iron and Iron joide ng capac ity panel - Serum or Plasm a % transferrin saturation low % trans tyra n satur ation Not Available Not Available 04/10/2024 03:52:39 08/12/19 24 08/12/2023 Iron and Iron jodie ng capac ity panel - Serum or Plasm a unsaturated iron bind capacity unsat urate d iron bind capac ity Not Available Not Available 04/10/2024 03:52:39 08/12/19 24 08/12/2023 Iron and Iron jodie ng capac ity panel - Serum or Plasm a iron iron Not Available Not Availa ble 04/10/2024 03:52:39 08/12/19 24 08/12/2023 CBC W Auto Diffe renti al panel - Blood white blood cells white blood cells Not Available Not Available 04/10/2024 03:52:39 08/12/19 24 08/12/2023 CBC W Auto Diffe renti al panel - Blood red blood cells red blood cells Not Available Not Available 04/10/2024 03:52:39 08/12/19 24 08/12/2023 CBC W Auto Diffe renti al panel - Blood hemoglobin low hemog lobin Not Available Not Available 04/10/2024 03:52:39 08/12/19 24 08/12/2023 CBC W Auto Diffe renti al panel - Blood hematocrit low hemat ocrit Not Available Not Available 04/10/2024 03:52:39 08/12/19 24 08/12/2023 CBC W Auto Diffe renti al panel - Blood mean red cell volume mean red cell volum e Not Available Not Available 04/10/2024 03:52:39 08/12/19 24 08/12/2023 CBC W Auto Diffe renti al panel - Blood mean red cell hemoglobin low mean red cell hemog lobin Not Available Not Available 04/10/2024 03:52:39 08/12/19 24 08/12/2023 CBC W Auto Diffe renti al panel - Blood mean RBC HGB concentratio n low mean RBC HGB alexis ntrat ion Not Available Not Available 04/10/2024 03:52:39 08/12/19 24 08/12/2023 CBC W Auto Diffe renti al panel - Blood red cell distribution width high red cell distr ibuti on width Not Available Not Available 04/10/2024 03:52:39 08/12/19 24 08/12/2023 CBC W Auto Diffe renti al panel - Blood platelets plate lets Not Available Not Available 04/10/2024 03:52:39 08/12/19 24 08/12/2023 CBC W Auto Diffe renti al panel - Blood mean platelet volume mean plate let volum e Not Available Not Available 04/10/2024 03:52:39 08/12/19 24 08/12/2023 CBC W Auto Diffe renti al panel - Blood neutrophils neutr ophil s Not Available Not Available 04/10/2024 03:52:39 08/12/19 24 08/12/2023 CBC W Auto Diffe renti al panel - Blood lymphocytes lymph ocyte s Not Available Not Available 04/10/2024 03:52:39 08/12/19 24 08/12/2023 CBC W Auto Diffe renti al panel - Blood monocytes monoc ytes Not Available Not Available 04/10/2024 03:52:39 08/12/19 24 08/12/2023 CBC W Auto Diffe renti al panel - Blood eosinophils eosin ophil s Not Available Not Available 04/10/2024 03:52:39 08/12/19 24 08/12/2023 CBC W Auto Diffe renti al panel - Blood basophils basop hils Not Available Not Available 04/10/2024 03:52:39 08/12/19 24 08/12/2023 CBC W Auto Diffe renti al panel - Blood immature granulocytes immat ure granu locyt es Not Available Not Available 04/10/2024 03:52:39 08/12/19 24 08/12/2023 CBC W Auto Diffe renti al panel - Blood neutrophils, absolute count neutr ophil s, absol [place] count Not Available Not Available 04/10/2024 03:52:39 08/12/19 24 08/12/2023 CBC W Auto Diffe renti al panel - Blood lymphocytes, absolute count lymph ocyte s, absol [place] count Not Available Not Available 04/10/2024 03:52:39 08/12/19 24 08/12/2023 CBC W Auto Diffe renti al panel - Blood monocytes, absolute count monoc ytes, absol [place] count Not Available Not Available 04/10/2024 03:52:39 08/12/19 24 08/12/2023 CBC W Auto Diffe renti al panel - Blood eosinophils, absolute count eosin ophil s, absol [place] count Not Available Not Available 04/10/2024 03:52:39 08/12/19 24 08/12/2023 CBC W Auto Diffe renti al panel - Blood basophils, absolute count basop hils, absol [place] count Not Available Not Available 04/10/2024 03:52:39 08/12/19 24 08/12/2023 CBC W Auto Diffe renti al panel - Blood immature granulocytes ,absolute immat ure granu locyt es,ab solut e Not Available Not Available 04/10/2024 03:52:39 08/12/19 24 08/12/2023 CBC W Auto Diffe renti al panel - Blood nucleated red blood cells nucle ated red blood cells Not Available Not Available 04/10/2024 03:52:39 08/12/19 24 08/12/2023 CBC W Auto Diffe renti al panel - Blood NRBC# NRBC# Not Available Not Availa ble 04/10/2024 03:52:39 10/21/19 24 10/22/2023 COMP. METAB OLIC PANEL (14) glucose 84 mg/dL 70-99 Not Available [facility] ([facility]) [address] [place], [address], 10/22/2023 03:37:04 10/21/19 24 10/22/2023 COMP. METAB OLIC PANEL (14) BUN 10 mg/dL 6-24 Not Available [facility] ([facility]) [address] [place], [address], 10/22/2023 03:37:04 10/21/19 24 10/22/2023 COMP. METAB OLIC PANEL (14) creatinine 0.80 mg/dL 0.57-1 .00 Not Available [facility] ([facility]) [address] [place], [address], 10/22/2023 03:37:04 10/21/19 24 10/22/2023 COMP. METAB OLIC PANEL (14) eGFR 90 mL/mi n/1.7 3 >59 Not Available [facility] ([facility]) [address] [facility] [place], [address], 10/22/2023 03:37:04 10/21/19 24 10/22/2023 COMP. METAB OLIC PANEL (14) BUN/creatini ne ratio 13 9-23 Not Available [facility] ([facility]) [address] [facility] [place], [address], 10/22/2023 03:37:04 10/21/19 24 10/22/2023 COMP. METAB OLIC PANEL (14) sodium 139 mmol/ L 134-14 4 Not Available [facility] ([facility]) [address] [place], [address], 10/22/2023 03:37:04 10/21/19 24 10/22/2023 COMP. METAB OLIC PANEL (14) potassium 3.7 mmol/ L 3.5-5. 2 Not Available [facility] ([facility]) [address] [facility] [place], [address], 10/22/2023 03:37:04 10/21/19 24 10/22/2023 COMP. METAB OLIC PANEL (14) chloride 104 mmol/ L 96-106 Not Available [facility] ([facility]) [address] [place], [address], 10/22/2023 03:37:04 10/21/19 24 10/22/2023 COMP. METAB OLIC PANEL (14) carbon dioxide, total 22 mmol/ L 20-29 Not Available [facility] ([facility]) [address] [place], [address], 10/22/2023 03:37:04 10/21/19 24 10/22/2023 COMP. METAB OLIC PANEL (14) calcium 8.7 mg/dL 8.7-10 .2 Not Available [facility] ([facility]) [address] [place], [address], 10/22/2023 03:37:04 10/21/19 24 10/22/2023 COMP. METAB OLIC PANEL (14) protein, total 6.2 g/dL 6.0-8. 5 Not Available [facility] ([facility]) [address] [place], [address], 10/22/2023 03:37:04 10/21/19 24 10/22/2023 COMP. METAB OLIC PANEL (14) albumin 3.8 g/dL 3.9-4. 9 below low normal Not Available [facility] ([facility]) [address] [place], [address], 10/22/2023 03:37:04 10/21/19 24 10/22/2023 COMP. METAB OLIC PANEL (14) globulin, total 2.4 g/dL 1.5-4. 5 Not Available [facility] ([facility]) [address] [place], [address], 10/22/2023 03:37:04 10/21/19 24 10/22/2023 COMP. METAB OLIC PANEL (14) bilirubin, total 0.4 mg/dL 0.0-1. 2 Not Available [facility] ([facility] [address] [facility] [place], [address], 10/22/2023 03:37:04 10/21/19 24 10/22/2023 COMP. METAB OLIC PANEL (14) alkaline phosphatase 55 IU/L 44-121 Not Available [facility] ([facility]) [address] [place], [address], 10/22/2023 03:37:04 10/21/19 24 10/22/2023 COMP. METAB OLIC PANEL (14) AST (SGOT) 8 IU/L 0-40 Not Available [facility] ([facility]) [address] [facility] [place], [address], 10/22/2023 03:37:04 10/21/19 24 10/22/2023 COMP. METAB OLIC PANEL (14) ALT (SGPT) 8 IU/L 0-32 Not Available [facility] ([facility]) [address] [facility], [place], [address], 10/22/2023 03:37:04 10/21/19 24 10/22/2023 IRON AND TIBC iron bind.cap.(TI BC) 418 ug/dL 250-45 0 Not Available [facility] ([facility]) [address] [place], [address], 10/22/2023 03:37:04 10/21/19 24 10/22/2023 IRON AND TIBC UIBC 393 ug/dL 131-42 5 Not Available [facility] ([facility]) [address] [place], [address], 10/22/2023 03:37:04 10/21/19 24 10/22/2023 IRON AND TIBC iron 25 ug/dL 27-159 below low normal Not Available [facility] ([facility]) [address] [place], [address], 10/22/2023 03:37:04 10/21/19 24 10/22/2023 IRON AND TIBC iron saturation 6 % 15-55 alert low Not Available [facility] ([facility]) [address] [place], [address], 10/22/2023 03:37:04 10/21/19 24 10/22/2023 TYRA TIN ferritin 8 NG/mL 15-150 below low normal Not Available [facility] ([facility]) [address] [place], [address], 10/22/2023 03:37:05 10/21/19 24 10/21/2023 CBC WITH DIFFE RENTI AL/PL ATELE T WBC 6.3 x10e3 /uL 3.4-10 .8 Not Available [facility] ([facility]) [address] [facility], [place], [address], 10/22/2023 03:37:05 10/21/19 24 10/21/2023 CBC WITH DIFFE RENTI AL/PL ATELE T RBC 4.30 x10e6 /uL 3.77-5 .28 Not Available [facility] ([facility]) [address] [facility], [place], [address], 10/22/2023 03:37:05 10/21/19 24 10/21/2023 CBC WITH DIFFE RENTI AL/PL ATELE T hemoglobin 10.6 g/dL 11.1-1 5.9 below low normal Not Available [facility] ([facility]) [address] [facility], [place], [address], 10/22/2023 03:37:05 10/21/19 24 10/21/2023 CBC WITH DIFFE RENTI AL/PL ATELE T hematocrit 36.3 % 34.0-4 6.6 Not Available [facility] ([facility]) [address] [facility], [place], [address], 10/22/2023 03:37:05 10/21/19 24 10/21/2023 CBC WITH DIFFE RENTI AL/PL ATELE T MCV 84 fL 79-97 Not Available [facility] ([facility]) [address] [place], [address], 10/22/2023 03:37:05 10/21/19 24 10/21/2023 CBC WITH DIFFE RENTI AL/PL ATELE T MCH 24.7 pg 26.6-3 3.0 below low normal Not Available [facility] ([facility]) [address] [facility], [place], [address], 10/22/2023 03:37:05 10/21/19 24 10/21/2023 CBC WITH DIFFE RENTI AL/PL ATELE T MCHC 29.2 g/dL 31.5-3 5.7 below low normal Not Available [facility] ([facility]) [address] [facility], [place], [address], 10/22/2023 03:37:05 10/21/19 24 10/21/2023 CBC WITH DIFFE RENTI AL/PL ATELE T RDW 14.5 % 11.7-1 5.4 Not Available [facility] ([facility]) [address] [facility], [place], [address], 10/22/2023 03:37:05 10/21/19 24 10/21/2023 CBC WITH DIFFE RENTI AL/PL ATELE T platelets 260 x10e3 /uL 150-45 0 Not Available [facility] ([facility]) [address] [facility], [place], [address], 10/22/2023 03:37:05 10/21/19 24 10/21/2023 CBC WITH DIFFE RENTI AL/PL ATELE T neutrophils 46 % notest ab. Not Available [facility] ([facility]) [address] [facility], [place], [address], 10/22/2023 03:37:05 10/21/19 24 10/21/2023 CBC WITH DIFFE RENTI AL/PL ATELE T lymphs 38 % notest ab. Not Available [facility] ([facility]) [address] [facility], [place], [address], 10/22/2023 03:37:05 10/21/19 24 10/21/2023 CBC WITH DIFFE RENTI AL/PL ATELE T monocytes 10 % notest ab. Not Available [facility] ([facility]) [address] [facility], [place], [address], 10/22/2023 03:37:05 10/21/19 24 10/21/2023 CBC WITH DIFFE RENTI AL/PL ATELE T eos 3 % notest ab. Not Available [facility] ([facility]) [address] [facility], [place], [address], 10/22/2023 03:37:05 10/21/19 24 10/21/2023 CBC WITH DIFFE RENTI AL/PL ATELE T basos 2 % notest ab. Not Available [facility] ([facility]) [address] [facility], [place], [address], 10/22/2023 03:37:05 10/21/19 24 10/21/2023 CBC WITH DIFFE RENTI AL/PL ATELE T neutrophils (absolute) 3.0 x10e3 /uL 1.4-7. 0 Not Available [facility] ([facility]) [address] [facility], [place], [address], 10/22/2023 03:37:05 10/21/19 24 10/21/2023 CBC WITH DIFFE RENTI AL/PL ATELE T lymphs (absolute) 2.4 x10e3 /uL 0.7-3. 1 Not Available [facility] ([facility]) [address] [facility], [place], [address], 10/22/2023 03:37:05 10/21/19 24 10/21/2023 CBC WITH DIFFE RENTI AL/PL ATELE T monocytes(ab solute) 0.7 x10e3 /uL 0.1-0. 9 Not Available [facility] ([facility]) [address] [facility], [place], [address], 10/22/2023 03:37:05 10/21/19 24 10/21/2023 CBC WITH DIFFE RENTI AL/PL ATELE T eos (absolute) 0.2 x10e3 /uL 0.0-0. 4 Not Available [facility] ([facility]) [address] [facility], [place], [address], 10/22/2023 03:37:05 10/21/19 24 10/21/2023 CBC WITH DIFFE RENTI AL/PL ATELE T baso (absolute) 0.1 x10e3 /uL 0.0-0. 2 Not Available [facility] ([facility]) [address] [facility], [place], [address], 10/22/2023 03:37:05 10/21/19 24 10/21/2023 CBC WITH DIFFE RENTI AL/PL ATELE T immature granulocytes 1 % notest ab. Not Available [facility] ([facility]) [address] [facility], [place], [address], 10/22/2023 03:37:05 10/21/19 24 10/21/2023 CBC WITH DIFFE RENTI AL/PL ATELE T immature grans (abs) 0.0 x10e3 /uL 0.0-0. 1 Not Available [facility] ([facility]) [address] [facility], [place], [address], 10/22/2023 03:37:05 09/09/19 24 09/09/2023 , [facility] ardio gram No observ ation record ed. [facility] [address], [place], [address], 09/28/2023 11:55:41 11/13/19 24 11/13/2023 MRI, hip, w/o contr ast No observ ation record ed. [facility] [address], [place], [address], 11/18/2023 12:59:59 11/26/1911/26/2023 MAMMO , scree martha, digit al, bilat eral No observ ation record ed. [email or web address] [facility] [address], [place], [address], 12/01/2023 23:17:55 12/22/19 24 12/22/2023 MAMMO , diagn ostic , bilat eral No observ ation record ed. [facility] [address], [place], [address], 12/24/2023 13:10:36 Result Notes None recorded. Problems Name Problem SNOMED Code Status Onset Date Resolution Date Notes Provider Name and Address Organization Details Recorded Time Heart murmur 80278326 Active 2023 Hanny Osorio MA null, [facility] 4 17:10:12 Anemia 693347194 Active 2023 Hanny Osorio MA null, [facility] 4 17:10:13 Osteoarthritis 571266348 Active 2023 Sameer Mcelroy MD Attn: Alaina wynn,[address] [facility], [place], [address], [facility] 4 14:50:21 Aortic valve stenosis 56674137 Active 2023 Sameer Mcelroy MD Attn: Alaina g,[address] [facility], [place], [address], [facility] 4 11:04:40 Problem Notes None recorded. Procedures Surgical History Date Name Laterality Status Provider Name and Address Organization Details Recorded Time 8 Gastric Bypass completed Nasima Cullen MA [facility] 08/09/2023 16:07:11 6 tonsillectomy completed Nasima Cullen MA [facility] 08/09/2023 16:07:22 Imaging Results Imaging Date Name Status LastModified by Organization Details LastModified Time 09/09/2023 US, echocardiogram completed [facility] [address], [place], [address], 09/28/2023 11:55:41 11/13/2023 MRI, hip, w/o contrast completed [facility] [address], [place], [place], [address], 11/18/2023 12:59:59 11/26/2023 MAMMO, screening, digital, bilateral completed [address] [place], [address], 12/01/2023 23:17:55 12/22/2023 MAMMO, diagnostic, bilateral completed [facility] [address], [place], [address], 12/24/2023 13:10:36 Procedure Notes None recorded. Medical Equipment None Reported. Allergies Allergen ID Allergen Name Allergen Category Reaction Reaction Severity Criticality Documentation Date Start Date Code Code System Note Provider Name and Address Organization Details Recorded Time 310841 ibuprofen medicatio n Not available Not available Not available 08/09/2023 5640 RxNorm Not Available Not Available Not Available 102944 Non-stero idal anti-infl ammatory agent (product) medicatio n Not available Not available Not available 04/10/2024 34693 005 SNOMED Not Available Not Available Not Available Medications Name Sig Start Date Stop Date Status Note LastModified by Organization Details LastModified Time amoxicilli n 500 mg capsule 10/13 completed end of course Not Available Not Available Not Available cephalexin 500 mg capsule TAKE 1 CAPSULE BY MOUTH THREE TIMES DAILY FOR 10 DAYS 10/13 completed end of course Not Available Not Available Not Available progestero ne micronized 200 mg capsule TAKE 1 CAPSULE BY MOUTH ON DAYS 1 THROUGH DAY 12 OF EACH MONTH 08/08 completed Not Available Not Available Not Available methylpred nisolone 4 mg tablets in a dose pack FOLLOW PACKAGE DIRECTIO NS 12/12 completed Not Available Not Available Not Available calcium otc active Not Available Not Avail able Not Available omeprazole Otc active Not Available Not Av ailable Not Available biotin otc active Not Available Not Availa ble Not Available Vitamin D3 otc active Not Available Not Av ailable Not Available Vitals Date Recorded Body weight Body mass index (BMI) Body height Heart rate Oxygen saturation Oxygen saturation in Arterial blood by Pulse oximetry Systolic blood pressure Diastolic blood pressure Provider Name and Address Organization Details Last Updated DateTime 4 908379. 98 g 41.5 kg/m2 170.18 cm 90 /min 98 % 98 % 118 mm[Hg] 76 mm[Hg] Nasmia Cullen [place] [facility] 4 16:11:33 Date Recorded Body height Body mass index (BMI) Body weight Heart rate Oxygen saturation Oxygen saturation in Arterial blood by Pulse oximetry Systolic blood pressure Diastolic blood pressure Provider Name and Address Organization Details Last Updated DateTime 4 170.18 cm 41.3 kg/m2 624400. 67 g 74 /min 98 % 98 % 132 mm[Hg] 68 mm[Hg] Myrtle King MA [facility] 4 14:15:12 Date Recorded Body height Body mass index (BMI) Body weight Heart rate Oxygen saturation Oxygen saturation in Arterial blood by Pulse oximetry Systolic blood pressure Diastolic blood pressure Provider Name and Address Organization Details Last Updated DateTime 4 170.18 cm 39.5 kg/m2 241023. 28 g 89 /min 98 % 98 % 114 mm[Hg] 78 mm[Hg] Krissykalina Figueroa [facility] 4 14:31:13 Date Recorded Body height Body mass index (BMI) Body weight Heart rate Oxygen saturation Oxygen saturation in Arterial blood by Pulse oximetry Systolic blood pressure Diastolic blood pressure Provider Name and Address Organization Details Last Updated DateTime 5 170.18 cm 36.1 kg/m2 892721. 04 g 85 /min 97 % 97 % 118 mm[Hg] 82 mm[Hg] Krissy Figueroa [facility] 5 14:20:17 Social History Question Answer Notes LastModified by Organizat ion Details LastModified Time Tobacco Smoking Status Never Smoker Nasima Cullen MA [facility] 08/09/2023 16:05:16 Do You Have An Advance Directive? No Information not available 08/09/2023 What Is Your Level Of Alcohol Consumption? None Information not available 08/09/2023 Are You Blind Or Do You Have Difficulty Seeing? No Information not available 08/09/2023 What Is Your Level Of Caffeine Consumption? Moderate Sweet Tea Information not available 08/09/2023 In The 14 Days Before Symptom Onset, Have You Had Close Contact With A Laboratory-confir med COVID-19 While That Case Was Ill? No Information not available 10/14/2023 In The 14 Days Before Symptom Onset, Have You Had Close Contact With A Person Who Is Under Investigation For COVID-19 While That Person Was Ill? No Information not available 10/14/2023 Have You Been To An Area Known To Be High Risk For COVID-19? No Information not available 10/14/2023 Are You Currently Employed? Yes Information not available 08/09/2023 Are You Deaf Or Do You Have Serious Difficulty Hearing? No Information not available 08/09/2023 What Type Of Diet Are You Following? REGULAR Information not available 08/09/2023 What Was The Date Of Your Most Recent Tobacco Screening? 04/10/2024 Information not available 04/10/2024 What Is Your Relationship Status? Single Information not available 08/09/2023 Do You Use Your Seat Belt Or Car Seat Routinely? Yes Information not available 08/09/2023 Do You Have Smoke And Carbon Monoxide Detectors In Your Home? Yes Information not available 08/09/2023 Do You Feel Stressed (tense, Restless, Nervous, Or Anxious, Or Unable To Sleep At Night)? [id number] Information not available 08/09/2023 Do You Use Any Illicit Or Recreational Drugs? No Information not available 08/09/2023 Do You Use Sunscreen Routinely? No Information not available 08/09/2023 Has Tobacco Cessation Counseling Been Provided? No Information not available 10/14/2023 On What Date Was Tobacco Cessation Counseling Provided? 12/13/2023 Information not available 12/13/2023 Do You Or Have You Ever Used Any Other Forms Of Tobacco Or Nicotine? No Information not available 08/09/2023 Sex: Female Functional Status Question Answer Note LastModified by Organizat ion Details LastModified Time Are you able to care for yourself? Yes Information not available 08/09/2023 What is your exercise level? Occasional Information not available 08/09/2023 Mental Status None recorded. Family History Relationship Description Onset Age of this Age Resolved Age Notes LastModified by Organization Details LastModified Time Father Asthma [email or web address] Not availabl e 08/09/2023 16:02:01 Father Blood coagulation disorder bandersonma Not available 07/23 16:02:16 Father Disorder of thyroid gland bandersonma Not available 07/23 16:02:38 Father Heart disease bandersonma Not available 07/23 16:02:43 Father Malignant tumor of prostate bandersonma Not available 07/23 16:03:04 Father Cirrhosis - non-alcoholi c bandersonma Not available 07/23 16:04:21 Father Congestive heart failure bandersonma Not available 07/23 16:04:48 Mother Cerebrovascu lar accident bandersonma Not available 0 08/09/2023 16:02:22 Mother Diabetes mellitus bandersonma Not available 07/23 16:02:28 Mother Hypertensive disorder bandersonma Not available 07/23 16:02:49 Mother Congestive heart failure bandersonma Not available 07/23 16:04:48 Notes:no family history steiner me kalen/rmjose Medical History Condition Response Coronary Artery Disease N Other N Atrial Fibrillation N High Blood Pressure N Thyroid Problems N Kidney or Bladder Problems N GI Problems Y Depression N COPD N Blood Clots N Have you had a mammogram in the last yea r? Y Skin Problems N Anemia Y Heart Attack ([place]) N Diabetes N Anxiety Disorder N Muscle, Joint, or Bone Problems N Seizures/Epilepsy N Have you had a colonoscopy in the last 1 0 years? Y Acid Reflux (GERD) N Cancer N Stroke N Asthma N Allergies N High Cholesterol N Hepatitis N Liver Disease N Headaches N Osteoporosis Y Heart Failure N Gynecological History Statement/Question Response Flow Light Date of LMP 08/23/2023 Menses Monthly Y Duration of Flow (days) 4 Age at Menarche 10 LMP Approximate Obstetrics History GPAL:G 0 P 0 0 0 0 Immunizations Vaccine Type Date Status Note Provider Tez e and Address Organization Details Recorded Time COVID-19, mRNA, LNP-S, PF, 30 mcg/0.3 mL dose 1 completed Krissy Figueroa [place], [place] [facility] 04/10/2024 14:15:00 COVID-19, mRNA, LNP-S, PF, 30 mcg/0.3 mL dose 1 completed Krissy Figuero[place], [place] [facility] 04/10/2024 14:15:00 COVID-19, mRNA, LNP-S, PF, 30 mcg/0.3 mL dose 1 completed Krissy Figuero[place] [facility] 04/10/2024 14:15:00 COVID-19, mRNA, LNP-S, PF, yessy-sucrose, 30 mcg/0.3 mL 3 completed Krissy Figuero[place] [facility] 04/10/2024 14:15:00 influenza, unspecified formulation 7 completed Krissy Figuero[place] [facility] 04/10/2024 14:15:00 Td (adult), 2 Lf tetanus toxoid, preservative free, adsorbed 1 completed Krissy Figuero[place] [facility] 04/10/2024 14:15:00 Hep B, adult 0 completed Krissy Figu[place] [facility] 04/10/2024 14:15:00 Hep B, adult 0 completed Krissy Figu[place] [facility] 04/10/2024 14:15:00 Hep B, adult 0 completed Krissy Figu[place] [facility] 04/10/2024 14:15:00 Hep A, adult 0 completed Krissy Figu[place] [facility] 04/10/2024 14:15:00 Hep A, adult 0 completed Krissy Figu[place] [facility] 04/10/2024 14:15:00 Influenza, split virus, quadrivalent, PF 0 completed Krissy Figu[place] [facility] 04/10/2024 14:15:00 Influenza, split virus, quadrivalent, PF 1 completed Krissy Figu[place] [facility] 04/10/2024 14:15:00 Influenza, split virus, quadrivalent, PF 3 completed Krissy Fig[place] [facility] 04/10/2024 14:15:00 Influenza, split virus, quadrivalent, PF 6 completed Krissy Fig[place] [facility] 04/10/2024 14:15:00 Influenza, split virus, trivalent, PF 4 completed Sameer Mcelroy MD Attn: Accounting,[address] [facility], [place], [address], [facility] 12/26/2023 11:00:19 Past Encounters Encounter ID Performer Location Encounter Start Date Encounter Closed Date Diagnosis/Indication Diagnosis SNOMED-CT Code Diagnosis ICD10 Code Diagnosis Note [id number] Sameer Mcelroy MD [facility] [facility] [place] [address] [place] [address] 08/09/2023 15:10:43 08/09/2023 17:18:22 Anemia 830816874 D64.9 Heart murmur 19256263 R0 1.1 Osteoarthritis 037349286 M19.90 [id number] Sameer Mcelroy MD [facility] [facility] [place] [address] [place] [address] 10/14/2023 14:00:19 10/14/2023 15:25:22 Morbid obesity 252682062 E66.01 Anemia 332345553 D64.9 Pain in ri ght lower limb 176404406 M79.053 [id number] Sameer Mcelroy MD [facility] [employer] [facility] [place] [address] [place] [address] 12/13/2023 14:19:17 12/13/2023 15:00:39 Obesity 305429534 E66.9 Administra tion of influenza vaccine 68888642 Z23 Osteoarthritis 475883307 M19.90 Anemia 000761667 D64.9 Aortic valve stenosis 60 380608 I35.0 [id number] Sameer Mcelroy MD [facility] [employer] [facility] [place] [address] [place] [address] 04/10/2024 14:04:33 04/10/2024 15:08:48 Body mass index 30+ - obesity 630720545 Z68.36 Obesity 880648247 E66.9 Heart murmur 43116590 R0 1.1 Anemia 789888800 D64.9 Osteoarthritis 190641778 M19.90 Aortic valve stenosis 60 925872 I35.0 Health Concerns Section Related Observation LastModified by Organization Detai ls LastModified Time None Recorded Concern Status LastModified by Organization Details LastModified Time None Recorded Advance Directives Directive N: Payers Encounter Date Sequence Insurance Name Policy Number Policy Donohue Covered Member ID Donohue Member ID Guarantor Name 08/09/2023 1 [facility] [id number] Jessie Nguyen [id number] Jessie Nguyen 10/14/2023 1 [facility] [id number] Jessie Nguyen [id number] Jessie Nguyen 12/13/2023 1 [employer] [id number] Jessie Nguyen [id number] Jessie Nguyen 04/10/2024 1 [employer] [id number] Jessie Nguyen [id number] Jessie Nguyen Notes Date Note Type Note Provider Name and Address Organization Details Recorded Time 08/09/2023 text/html 48-year-old for continuity of care history of anemia from uterine fibroids she was supposed to have hysterectomy that has not happened yet also she has got ongoing arthritic complaints and sees an orthopedic surgeon getting shots in her knees she has a history of obesity and she has still struggled with weight Sameer Mcelroy MD Attn: Accounting, [address] [place], [address], [facility] 08/11/2023 14:50:53 10/14/2023 text/html I am times she will feel like the distal right leg we will have little bit of heat and cold intolerance but rarely does not hurt it has been going on for a couple of weeks. Anemia there has not been any fatigue no shortness a breath. Obesity she has had bariatric procedure before Sameer Mcelroy MD Attn: Accounting, [address] [place], [address], [facility] 10/23/2023 20:04:57 12/13/2023 text/html GERD has been stable anemia she has no fatigue at this time there has no craving of cold liquids not short of breath [id number] aortic stenosis no syncope no heart failure symptoms no chest pain Sameer Mcelroy MD Attn: Accounting, [address] [place], [address], [place] [facility] 12/26/2023 11:08:08 04/10/2024 text/html still dealing wi th the stress of losing her dad she has had some arthritic complaints to bother the anemia has been somewhat asymptomatic but she require some IV iron for time to time. aortic Valve stenosis she has not had any PND orthopnea chest pain syncope or presyncope heart failure symptoms tired at times Sameer Mcelroy MD Attn: Accounting[address] [facility], [place], [address], [facility] 04/24/2024 20:35:27 OBGyn Episode No OBEpisode recorded.
--- OUTSIDE RECORDS SUMMARY | 2024-05-01 07:37 | XMS_ITS | Data Portability ---
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 It has been 3 months since her last cortisone injection both of her knees. She does get good relief from the injections for at least a short time. She is unable take anti-inflammatori es due to a history of gastric bypass. She does use Tylenol occasionally. Physical exam: 47-year-old female alert. She walks without limp. She has extremely large legs in both the thigh and the calf. She does have mild palpable effusions. Range motion is from 0-120 degrees bilaterally. Moderate tenderness over both medial joint lines and lateral joint lines in both knees. [id number] pain patellofemoral grind bilaterally. ChloraPrep used on skin 20 mg Kenalog and 3 cc of 0.5% ropivacaine was injected both knees. Risk of infection discussed. Impression: 47-year-old female who has rather severe osteoarthritis in both knees. She needs to work on continuing to get her weight down. At some point the shots are not going to work so well for her and without being able take anti-inflammatori es she is going to be in a situation that could be very problematic and painful for her. I will see her back in 3 months repeat injection. 20 minutes was spent in treatment the patient more than half of this in [id number] conversation tere Not available 04/29/2022 15:53:53 07/29/2022 07/29/2022 HPI: Patient returns. She is here for cortisone injections in both her knees. She has moderately severe medial compartment osteoarthritis. She is obese and not a surgical candidate. She wished additional injections today. Physical exam: 47-year-old female alert. She has palpable mild effusions in both knees. Range of motion is from 0-120 degrees bilaterally. Moderate tenderness over both medial joint lines to palpation. ChloraPrep was used on skin 20 mg Kenalog and 3 cc 0.5% ropivacaine was injected into both knees. Impression: 47-year-old female with moderately severe medial compartment osteoarthritis in both knees. She does continue to get about 2 months of good relief the injections. I will see her back in Not available 07/29/2022 15:46:42 10/30/2022 10/30/2022 HPI: Patient returns. She is here cortisone injection both of her knees. She has moderate to moderately severe osteoarthritis in knees. Shots were 3 months ago well until a couple weeks ago. She wished to have additional injections today. Physical exam: 47-year-old female alert. She walks without assistance. She has mild palpable effusions in both knees. Range motion is from 0-125 degrees bilaterally. She has chronic lymphedema in both lower extremities. No redness or warmth in either lower extremity. ChloraPrep was used on skin 20 mg Kenalog and 3 cc 0.5% ropivacaine was injected both knees. Risk infection discussed. Impression: 47-year-old female has moderate to moderately severe osteoarthritis in both knees. She continued good benefit from injections. See her in 3 months. Not available 10/30/2022 14:12:23 01/27/2023 01/27/2023 The patient has moderately severe primary osteoarthritis both knees. Under sterile conditions at her request I injected both knee joints in the office today with 4 cc 0.5% bupivacaine and 20 mg of Kenalog. Patient tolerated the procedure well. She will see us back in 3 months if necessary for cortisone if needed she voiced understanding agrees above plan she will continue with current conservative measures call for any further problems difficulties or questions. [email or web address] Not available 01/27/2023 14:20:12 04/28/2023 04/28/2023 HPI: Patient returns. She is here for cortisone injections in both of her knees. Last shots were 3 months ago. She does get at least 2 months good relief from her injections. She is not a surgical candidate due to weight. She wishes to have additional injections today. Physical exam: 48-year-old female alert pleasant. She walks with a cane. She has mild palpable effusions in both knees. Range motion is from 0-130 degrees bilaterally. Mild tenderness over both medial and lateral joint lines in both knees. Mild patellofemoral grind bilaterally. After Betadine and alcohol prep 20 mg Kenalog and 3 cc of 0.5% ropivacaine was injected into both knees. Impression: 48-year-old female who has severe osteoarthritis in both knees. Shots continue to give her good relief. We will see her in 3 months. Not available 04/28/2023 14:45:27 Plan of Treatment Reminders Order Date Submit Date Provider Last Modified By Organization Details Last Modified Time Details Appointments None recorded. Lab None recorded. Referral None recorded. Procedures injection/a spiration joint/bursa (PROC) - in office procedure, administere d by provider 2023 024 In-Office Order, Internal Use Only DO Not Attach Compendium DO Not Attach Compendium, Do Not Delete/merge, [id number] 4 14:24:01 injection/a spiration joint/bursa (PROC) 2022 023 [email or web address] In-Office Order, Internal Use Only DO Not Attach Compendium DO Not Attach Compendium, Do Not Delete/merge, [id number] 3 13:56:43 injection/a spiration joint/bursa (PROC) - in office procedure, administere d by provider 2022 023 [email or web address] In-Office Order, Internal Use Only DO Not Attach Compendium DO Not Attach Compendium, Do Not Delete/merge, [id number] 3 14:07:18 injection/a spiration joint/bursa (PROC) - in office procedure, administere d by provider 2022 023 [email or web address] In-Office Order, Internal Use Only DO Not Attach Compendium DO Not Attach Compendium, Do Not Delete/merge, [id number] 3 15:12:08 injection/a spiration joint/bursa (PROC) - in office procedure, administere d by provider 2022 023 [email or web address] Not available 3 15:12:38 Surgeries None recorded. Imaging XR, knee 2023 024 [email or web address] [facility] [place], [address], [place], [address], 4 15:13:55 XR, knee 2022 023 [email or web address] [facility] [place], [address], [place], [address], 3 16:04:37 Medication Orders Kenalog 10 mg/mL suspension for injection 2023 024 [id number], [address] [place], [address], 4 14:28:43 ropivacaine (PF) 5 mg/mL (0.5 %) injection solution 2023 024 [id number], [address] [place], [address], 4 14:28:43 bupivacaine HCl 0.5 % (5 mg/mL) injection solution 2022 023 [email or web address] [id number], [address] [place], [address], 3 14:48:47 Kenalog 10 mg/mL suspension for injection 2022 023 [email or web address] [id number], [address] [place], [address], 3 14:48:47 Kenalog 10 mg/mL suspension for injection [address] #[id number], [address], [place], [address], 3 15:47:18 ropivacaine (PF) 5 mg/mL (0.5 %) injection solution [address] #[id number], [address], [place], [address], 3 15:47:18 Kenalog 10 mg/mL suspension for injection [address] #[id number], [address] [place], [address], 3 16:20:00 ropivacaine (PF) 5 mg/mL (0.5 %) injection solution [address] #[id number], [address], [place], [address], 3 16:20:00 Kenalog 10 mg/mL suspension for injection 2022 023 [id number] 15 [facility] #[id number], [address] [place], [address], 3 21:23:57 ropivacaine (PF) 5 mg/mL (0.5 %) injection solution 2022 023 [id number] 15 [facility] #[id number], [address] [place], [address], 3 21:23:57 Patient TargetsNo targets recorded. Patient InstructionsNo instructions recorded. Reason for Referral None Reported. Results Created Date Observation Date Name Description Value Unit Range Abnormal Flag Note LastModifiedBy Organization Detail LastModifiedTime 05/19/19 23 05/18/2022 CBC/C OMPLE TE BLD COUNT W/DIF F white blood cells 5.9 x10'3 /uL 4.2-10 .8 Not Available [facility] (Lab) [address] [place], [address], 05/18/2022 14:15:23 05/19/19 23 05/18/2022 CBC/C OMPLE TE BLD COUNT W/DIF F red blood cells 4.49 x10'6 /uL 3.80-5 .20 Not Available [facility] (Lab) [address] [place], [address], 05/18/2022 14:15:23 05/19/19 23 05/18/2022 CBC/C OMPLE TE BLD COUNT W/DIF F hemoglobin 12.6 g/dL 12.0-1 5.6 Not Available [facility] (Lab) [address] [place], [address], 05/18/2022 14:15:23 05/19/19 23 05/18/2022 CBC/C OMPLE TE BLD COUNT W/DIF F hematocrit 41.0 % 35.7-4 5.7 Not Available [facility] (Lab) [address] [place], [address], 05/18/2022 14:15:23 05/19/19 23 05/18/2022 CBC/C OMPLE TE BLD COUNT W/DIF F mean red cell volume 91.3 fL 82.0-9 9.0 Not Available [facility] (Lab) [address] [place], [address], 05/18/2022 14:15:23 05/19/19 23 05/18/2022 CBC/C OMPLE TE BLD COUNT W/DIF F mean red cell hemoglobin 28.1 pg 27.0-3 3.0 Not Available [facility] (Lab) [address] [place], [address], 05/18/2022 14:15:23 05/19/19 23 05/18/2022 CBC/C OMPLE TE BLD COUNT W/DIF F mean RBC HGB concentratio n 30.7 g/dL 31.0-3 6.0 low Not Available [facility] (Lab) [address] [place], [address], 05/18/2022 14:15:23 05/19/19 23 05/18/2022 CBC/C OMPLE TE BLD COUNT W/DIF F red cell distribution width 15.4 % 11.8-1 5.5 Not Available [facility] (Lab) [address] [place], [address], 05/18/2022 14:15:23 05/19/19 23 05/18/2022 CBC/C OMPLE TE BLD COUNT W/DIF F platelets 216 x10'3 /uL 150-40 0 Not Available [facility] (Lab) [address] [place], [address], 05/18/2022 14:15:23 05/19/19 23 05/18/2022 CBC/C OMPLE TE BLD COUNT W/DIF F mean platelet volume 11.9 fL 9.0-12 .4 Not Available [facility] (Lab) [address] [place], [address], 05/18/2022 14:15:23 05/19/19 23 05/18/2022 CBC/C OMPLE TE BLD COUNT W/DIF F neutrophils 52.3 % 39.0-7 2.0 Not Available [facility] (Lab) [address] [place], [address], 05/18/2022 14:15:23 05/19/19 23 05/18/2022 CBC/C OMPLE TE BLD COUNT W/DIF F lymphocytes 34.2 % 16.0-4 7.0 Not Available [facility] (Lab) [address] [place], [address], 05/18/2022 14:15:23 05/19/19 23 05/18/2022 CBC/C OMPLE TE BLD COUNT W/DIF F monocytes 8.2 % 5.0-12 .0 Not Available [facility] (Lab) [address] [place], [address], 05/18/2022 14:15:23 05/19/19 23 05/18/2022 CBC/C OMPLE TE BLD COUNT W/DIF F eosinophils 3.9 % 1.0-7. 0 Not Available [facility] (Lab) [address] [place], [address], 05/18/2022 14:15:23 05/19/19 23 05/18/2022 CBC/C OMPLE TE BLD COUNT W/DIF F basophils 1.2 % 0.0-2. 0 Not Available [facility] (Lab) [address] [place], [address], 05/18/2022 14:15:23 05/19/19 23 05/18/2022 CBC/C OMPLE TE BLD COUNT W/DIF F immature granulocytes 0.2 % 0.00-0 .50 Not Available [facility] (Lab) [address] [place], [address], 05/18/2022 14:15:23 05/19/19 23 05/18/2022 CBC/C OMPLE TE BLD COUNT W/DIF F neutrophils, absolute count 3.07 x10'3 /uL 1.5-8. 0 Not Available [facility] (Lab) [address] [place], [address], 05/18/2022 14:15:23 05/19/19 23 05/18/2022 CBC/C OMPLE TE BLD COUNT W/DIF F lymphocytes, absolute count 2.01 x10'3 /uL 1.07-3 .43 Not Available [facility] (Lab) [address] [place], [address], 05/18/2022 14:15:23 05/19/19 23 05/18/2022 CBC/C OMPLE TE BLD COUNT W/DIF F monocytes, absolute count 0.48 x10'3 /uL 0.29-0 .99 Not Available [facility] (Lab) [address] [place], [address], 05/18/2022 14:15:23 05/19/19 23 05/18/2022 CBC/C OMPLE TE BLD COUNT W/DIF F eosinophils, absolute count 0.23 x10'3 /uL 0.02-0 .53 Not Available [facility] (Lab) [address] [place], [address], 05/18/2022 14:15:23 05/19/19 23 05/18/2022 CBC/C OMPLE TE BLD COUNT W/DIF F basophils, absolute count 0.07 x10'3 /uL 0.01-0 .08 Not Available [facility] (Lab) [address] [place], [address], 05/18/2022 14:15:23 05/19/19 23 05/18/2022 CBC/C OMPLE TE BLD COUNT W/DIF F immature granulocytes ,absolute 0.01 x10'3 /uL 0.00-0 .05 Not Available [facility] (Lab) [address] [place], [address], 05/18/2022 14:15:23 05/19/19 23 05/18/2022 CBC/C OMPLE TE BLD COUNT W/DIF F nucleated red blood cells 0.0 % -0 Not Available [facility] (Lab) [address] [place], [address], 05/18/2022 14:15:23 05/19/19 23 05/18/2022 CBC/C OMPLE TE BLD COUNT W/DIF F NRBC# 0.00 x10'3 /uL Not Available [facility] (Lab) [address] [place], [address], 05/18/2022 14:15:23 05/19/19 23 05/18/2022 IRON SERUM /FE iron 54 mcg/d L 42-175 Not Available [facility] (Lab) [address] [place], [address], 05/18/2022 14:57:48 05/19/19 23 05/18/2022 HEATHER TIN ferritin 7 NG/mL 6.24-1 37 Not Available [facility] (Lab) [address] [place], [address], 05/18/2022 15:09:27 08/12/19 24 08/12/2023 CBC/C OMPLE TE BLD COUNT W/DIF F white blood cells 7.6 x10'3 /uL 4.2-10 .8 Not Available [facility] (Lab) [address] [place], [address], 08/12/2023 10:49:25 08/12/19 24 08/12/2023 CBC/C OMPLE TE BLD COUNT W/DIF F red blood cells 4.13 x10'6 /uL 3.80-5 .20 Not Available [facility] (Lab) [address] [place], [address], 08/12/2023 10:49:25 08/12/19 24 08/12/2023 CBC/C OMPLE TE BLD COUNT W/DIF F hemoglobin 10.7 g/dL 12.0-1 5.6 low Not Available [facility] (Lab) [address] [place], [address], 08/12/2023 10:49:25 08/12/19 24 08/12/2023 CBC/C OMPLE TE BLD COUNT W/DIF F hematocrit 34.9 % 35.7-4 5.7 low Not Available [facility] (Lab) [address] [place], [address], 08/12/2023 10:49:25 08/12/19 24 08/12/2023 CBC/C OMPLE TE BLD COUNT W/DIF F mean red cell volume 84.5 fL 82.0-9 9.0 Not Available [facility] (Lab) [address] [place], [address], 08/12/2023 10:49:25 08/12/19 24 08/12/2023 CBC/C OMPLE TE BLD COUNT W/DIF F mean red cell hemoglobin 25.9 pg 27.0-3 3.0 low Not Available [facility] (Lab) [address] [place], [address], 08/12/2023 10:49:25 08/12/19 24 08/12/2023 CBC/C OMPLE TE BLD COUNT W/DIF F mean RBC HGB concentratio n 30.7 g/dL 31.0-3 6.0 low Not Available [facility] (Lab) [address] [place], [address], 08/12/2023 10:49:25 08/12/19 24 08/12/2023 CBC/C OMPLE TE BLD COUNT W/DIF F red cell distribution width 16.4 % 11.8-1 5.5 high Not Available [facility] (Lab) [address] [place], [address], 08/12/2023 10:49:25 08/12/19 24 08/12/2023 CBC/C OMPLE TE BLD COUNT W/DIF F platelets 255 x10'3 /uL 150-40 0 Not Available [facility] (Lab) [address] [place], [address], 08/12/2023 10:49:25 08/12/19 24 08/12/2023 CBC/C OMPLE TE BLD COUNT W/DIF F mean platelet volume 12.1 fL 9.0-12 .4 Not Available [facility] (Lab) [address] [place], [address], 08/12/2023 10:49:25 08/12/19 24 08/12/2023 CBC/C OMPLE TE BLD COUNT W/DIF F neutrophils 61.0 % 39.0-7 2.0 Not Available [facility] (Lab) [address] [place], [address], 08/12/2023 10:49:25 08/12/19 24 08/12/2023 CBC/C OMPLE TE BLD COUNT W/DIF F lymphocytes 28.6 % 16.0-4 7.0 Not Available [facility] (Lab) [address] [place], [address], 08/12/2023 10:49:25 08/12/19 24 08/12/2023 CBC/C OMPLE TE BLD COUNT W/DIF F monocytes 7.3 % 5.0-12 .0 Not Available [facility] (Lab) [address] [place], [address], 08/12/2023 10:49:25 08/12/19 24 08/12/2023 CBC/C OMPLE TE BLD COUNT W/DIF F eosinophils 1.8 % 1.0-7. 0 Not Available [facility] (Lab) [address] [place], [address], 08/12/2023 10:49:25 08/12/19 24 08/12/2023 CBC/C OMPLE TE BLD COUNT W/DIF F basophils 0.9 % 0.0-2. 0 Not Available [facility] (Lab) [address] [place], [address], 08/12/2023 10:49:25 08/12/19 24 08/12/2023 CBC/C OMPLE TE BLD COUNT W/DIF F immature granulocytes 0.4 % 0.00-0 .50 Not Available [facility] (Lab) [address] [place], [address], 08/12/2023 10:49:25 08/12/19 24 08/12/2023 CBC/C OMPLE TE BLD COUNT W/DIF F neutrophils, absolute count 4.62 x10'3 /uL 1.5-8. 0 Not Available [facility] (Lab) [address] [place], [address], 08/12/2023 10:49:25 08/12/19 24 08/12/2023 CBC/C OMPLE TE BLD COUNT W/DIF F lymphocytes, absolute count 2.17 x10'3 /uL 1.07-3 .43 Not Available [facility] (Lab) [address] [place], [address], 08/12/2023 10:49:25 08/12/19 24 08/12/2023 CBC/C OMPLE TE BLD COUNT W/DIF F monocytes, absolute count 0.55 x10'3 /uL 0.29-0 .99 Not Available [facility] (Lab) [address] [place], [address], 08/12/2023 10:49:25 08/12/19 24 08/12/2023 CBC/C OMPLE TE BLD COUNT W/DIF F eosinophils, absolute count 0.14 x10'3 /uL 0.02-0 .53 Not Available [facility] (Lab) [address] [place], [address], 08/12/2023 10:49:25 08/12/19 24 08/12/2023 CBC/C OMPLE TE BLD COUNT W/DIF F basophils, absolute count 0.07 x10'3 /uL 0.01-0 .08 Not Available [facility] (Lab) [address] [place], [address], 08/12/2023 10:49:25 08/12/19 24 08/12/2023 CBC/C OMPLE TE BLD COUNT W/DIF F immature granulocytes ,absolute 0.03 x10'3 /uL 0.00-0 .05 Not Available [facility] (Lab) [address] [place], [address], 08/12/2023 10:49:25 08/12/19 24 08/12/2023 CBC/C OMPLE TE BLD COUNT W/DIF F nucleated red blood cells 0.0 % -0 Not Available [facility] (Lab) [address] [place], [address], 08/12/2023 10:49:25 08/12/19 24 08/12/2023 CBC/C OMPLE TE BLD COUNT W/DIF F NRBC# 0.00 x10'3 /uL Not Available [facility] (Lab) [address] [place], [address], 08/12/2023 10:49:25 08/12/19 24 08/12/2023 IRON/ TIBC PANEL total iron binding capacity 421 mcg/d L 265-47 5 Not Available [facility] (Lab) [address] [place], [address], 08/12/2023 11:42:34 08/12/19 24 08/12/2023 IRON/ TIBC PANEL % transferrin saturation 10 % 20-55 low Not Available [facility] (Lab) [address] [place], [address], 08/12/2023 11:42:34 08/12/19 24 08/12/2023 IRON/ TIBC PANEL unsaturated iron bind capacity 379 mcg/d L 126-38 2 Not Available [facility] (Lab) [address] [place], [address], 08/12/2023 11:42:34 08/12/19 24 08/12/2023 IRON/ TIBC PANEL iron 42 mcg/d L 42-175 Not Available [facility] (Lab) [address] [place], [address], 08/12/2023 11:42:34 08/12/19 24 08/12/2023 COMPR EHENS STAR METAB OLIC PANEL sodium 135 mmol/ L 137-14 5 low Not Available [facility] (Lab) [address] [place], [address], 08/12/2023 11:42:19 08/12/19 24 08/12/2023 COMPR EHENS STAR METAB OLIC PANEL potassium 4.3 mmol/ L 3.5-5. 1 Not Available [facility] (Lab) [address] [place], [address], 08/12/2023 11:42:19 08/12/19 24 08/12/2023 COMPR EHENS STAR METAB OLIC PANEL chloride 108 mmol/ L 98-107 high Not Available [facility] (Lab) [address] [place], [address], 08/12/2023 11:42:19 08/12/19 24 08/12/2023 COMPR EHENS STAR METAB OLIC PANEL carbon dioxide 27 mmol/ L 22-30 Not Available [facility] (Lab) [address] [place], [address], 08/12/2023 11:42:19 08/12/19 24 08/12/2023 COMPR EHENS STAR METAB OLIC PANEL anion gap 4.3 mmol/ L 14-22 low Not Available [facility] (Lab) [address] [place], [address], 08/12/2023 11:42:19 08/12/19 24 08/12/2023 COMPR EHENS STAR METAB OLIC PANEL glucose 84 mg/dL 70-99 Not Available [facility] (Lab) [address] [place], [address], 08/12/2023 11:42:19 08/12/19 24 08/12/2023 COMPR EHENS STAR METAB OLIC PANEL BUN 8 mg/dL 8-19 Not Available [facility] (Lab) [address] [place], [address], 08/12/2023 11:42:19 08/12/19 24 08/12/2023 COMPR EHENS STAR METAB OLIC PANEL creatinine 0.66 mg/dL 0.66-1 .25 Not Available [facility] (Lab) [address] [place], [address], 08/12/2023 11:42:19 08/12/19 24 08/12/2023 COMPR EHENS STAR METAB OLIC PANEL GFR >60 Refer ence Range : [place] ge GFR Healt hy Adult : >60 mL/mi n/1.7 3 m2 Chron ic Kidne y Disea se: 15-60 mL/mi n/1.7 3 m2 Kidne y Failu re: <15/m L/min /1.73 m2 www.n iddk. nih.g ov The MDRD study equat ion has not been valid ated in child jigar <18 years of age; pregn ant women ; the elder ly >85 years of age; or in some racia l or ethni c subgr oups, such as [facility] nics. Outsi de the valid ated yamile eters , estim ated GFR is less accur ate, requi ring clini dereje judgm ent on a case- by-ca se basis . Clini dereje inter preta tion for other races and ages must be made by the clini vania. The MDRD study equat ion has not been valid ated for the evalu ation of serum creat inine relat ed to nutri mahsa l statu s or medic ation usage . For perso ns <18 years of age, a pedia tric GFR calcu lator is avail able on the [facility] websi te: https ://taco cruz.o rg/pr ofess ional s/kdo qi/gf r_cal culat or Not Available [facility] (Lab) [address] [place], [address], 08/12/2023 11:42:19 08/12/19 24 08/12/2023 COMPR EHENS STAR METAB OLIC PANEL alkaline phosphatase 49 U/L 38-126 Not Available [facility] (Lab) [address] [place], [address], 08/12/2023 11:42:19 08/12/19 24 08/12/2023 COMPR EHENS STAR METAB OLIC PANEL alanine aminotransfe rase 12 U/L 0-35 Not Available [facility] (Lab) [address] [place], [address], 08/12/2023 11:42:19 08/12/19 24 08/12/2023 COMPR EHENS STAR METAB OLIC PANEL aspartate aminotransfe rase 18 U/L 15-37 Not Available [facility] (Lab) [address] [place], [address], 08/12/2023 11:42:19 08/12/19 24 08/12/2023 COMPR EHENS STAR METAB OLIC PANEL bilirubin, total 0.50 mg/dL 0.20-1 .30 Not Available [facility] (Lab) [address] [place], [address], 08/12/2023 11:42:19 08/12/19 24 08/12/2023 COMPR EHENS STAR METAB OLIC PANEL calcium 8.7 mg/dL 8.4-10 .2 Not Available [facility] (Lab) [address] [place], [address], 08/12/2023 11:42:19 08/12/19 24 08/12/2023 COMPR EHENS STAR METAB OLIC PANEL total protein 6.2 g/dL 6.3-8. 2 low Not Available [facility] (Lab) [address] [place], [address], 08/12/2023 11:42:19 08/12/19 24 08/12/2023 COMPR EHENS STAR METAB OLIC PANEL albumin 3.8 g/dL 3.4-5. 0 Not Available [facility] (Lab) [address] [place], [address], 08/12/2023 11:42:19 08/12/19 24 08/12/2023 COMPR EHENS STAR METAB OLIC PANEL globulin 2.4 g/dL 2.6-4. 2 low Not Available [facility] (Lab) [address] [place], [address], 08/12/2023 11:42:19 08/12/19 24 08/12/2023 COMPR EHENS STAR METAB OLIC PANEL A/G ratio 1.6 ratio 1.0-2. 0 Not Available [facility] (Lab) [address] [place], [address], 08/12/2023 11:42:19 08/12/19 24 08/12/2023 T4 FREE free T4 1.03 NG/dL 0.78-2 .19 Not Available [facility] (Lab) [address] [place], [address], 08/12/2023 11:46:18 08/12/19 24 08/12/2023 T3 FREE free T3 2.9 pg/mL 2.77-5 .27 Not Available [facility] (Lab) [address] [place], [address], 08/12/2023 11:46:28 08/12/19 24 08/12/2023 TSH thyroid-stim ulating hormone 0.108 uIU/m L 0.465- 4.680 low Not Available [facility] (Lab) [address] [place], [address], 08/12/2023 12:01:03 08/12/19 24 08/12/2023 HEATHER TIN ferritin 5 NG/mL 6.24-1 37 low Not Available [facility] (Lab) [address] [place], [address], 08/12/2023 12:01:19 08/12/19 24 08/12/2023 VITAM IN B12 (MIN OG ) vb12 343 pg/mL 239-93 1 Not Available [facility] (Lab) [address] [place], [address], 08/12/2023 12:38:50 08/12/19 24 08/12/2023 FOLAT E, SERUM /PLAS MA folate 15.8 NG/mL 2.76-2 0.0 Not Available [facility] (Lab) [address] [place], [address], 08/12/2023 12:38:55 04/30/19 23 XR, knee No observ ation record ed. [email or web address] [facility] [place] [address], [place], [address], 04/29/2022 15:52:18 04/28/19 24 XR, knee No observ ation record ed. [email or web address] [email or web address] [place] [address] [facility] [address], [place], [address], 04/28/2023 14:44:33 Result Notes None recorded. Problems Name Problem SNOMED Code Status Onset Date Resolution Date Notes Provider Name and Address Organization Details Recorded Time Bilateral osteoarthr itis of knees 6385153770726 07 Active 2022 LUX [place], [place] [employer] [facility] 3 15:11:05 Benign hypertensi on 61968128 Active Not Available [facility] 3 21:23:57 Abscess 209713319 Active Not Available [facility] 3 21:23:57 Laboratory test result abnormal 749803616 Active 2021 Not Available [facility] 3 21:23:57 Serum iron below reference range 452581791 Active 2021 Not Available [facility] 3 21:23:57 Abdominal pain 25222490 Active Not Available [facility] 3 21:23:57 Post-surgi dereje malabsorpt ion 441205248 Active Not Available [facility] 3 21:23:57 Anemia 826168991 Active Not Available [facility] 3 21:23:57 Multiple joint pain 37200632 Active 2021 Not Available [facility] 3 21:23:57 Osteoarthr itis 800914768 Active 2021 Not Available [facility] 3 21:23:57 Candidiasi s of mouth 02634216 Active Not Available [facility] 3 21:23:57 Fatigue 25109865 Active 2021 Not Available [facility] 3 21:23:57 Vitamin deficiency 34062578 Active Not Available [facility] 3 21:23:57 Problem Notes None recorded. Procedures Surgical History Date Name Laterality Status Provider Name and Address Organization Details Recorded Time Gastric Bypass completed Not Available [facility] 04/22/2022 04:42:13 Gallbladder Surgery completed Not Available [facility] 04/22/2022 04:42:13 procedure on tonsils completed Not Available [facility] 04/22/2022 04:42:13 Colonoscopy completed Not Available [facility] 04/22/2022 04:42:13 Imaging Results Imaging Date Name Status LastModified by [facility] Details LastModified Time 04/29/2022 XR, knee completed [facility] [place] [address], [place], [address], 04/29/2022 15:52:18 04/28/2023 XR, knee completed [facility] [place] [address], [place], [address], 04/28/2023 14:44:33 Procedure Notes None recorded. Medical Equipment None Reported. Allergies Allergen ID Allergen Name Allergen Category Reaction Reaction Severity Criticality Documentation Date Start Date Code Code System Note Provider Name and Address Organization Details Recorded Time 7252 Non-stero idal anti-infl ammatory agent (product) medicatio n Not available Not available Not available 04/22/2022 06166 005 SNOMED Not Available [facility] 3 04:58:38 Medications Name Sig Start Date Stop Date Status Note LastModified by Organization Details LastModified Time nystatin 100,000 unit/mL oral suspension swish and swallow 5 cc TID x 1 week active Not Available Not Available No t Available clindamycin HCl 300 mg capsule TAKE 1 CAPSULE BY MOUTH THREE TIMES A DAY FOR 7 DAYS active Not Available Not Available No t Available ampicillin 500 mg capsule 07/29 completed Not Available Not Available Not Available bupivacaine HCl 0.5 % (5 mg/mL) injection solution Take 40 mg by injection route. 2022 active Not Available Not Available Not Avai lable terconazole 0.8 % vaginal cream 08/01 completed Not Available Not Available Not Available Tamiflu 75 mg capsule active Not Available Not Available N ot Available sulfamethox azole 800 mg-trimetho prim 160 mg tablet Take 1 tablet every 12 hours by oral route. 06/30 completed Not Available Not Available Not Available peg-electro lyte solution 420 gram oral solution MIX DIRECTED AND DRINK 1/2 AT 5PM ON 09/23 AND OTHER 1/2 AT 5AM ON 8/3 02/10 completed Not Available Not Available Not Available triamcinolo ne acetonide 0.1 % topical cream APPLY TO AFFECTED AREA TWICE A DAY UNTIL CLEAR 07/02 completed Not Available Not Available Not Available Kenalog 10 mg/mL suspension for injection in office [address] [facility]: [phone] Not Available Not Available Not Available cephalexin 500 mg capsule Take 1 capsule 3 times a day by oral route for 7 days. 06/30 completed Not Available Not Available Not Available progesteron e micronized 200 mg capsule TAKE 1 CAPSULE BY MOUTH ON DAYS 1 THROUGH DAY 12 OF EACH MONTH active Not Available Not Available No t Available omeprazole 20 mg capsule,del ayed release Take 1 capsule twice a day by oral route. 02/28 completed Not Available Not Available Not Available hydroxyzine HCl 25 mg tablet TAKE 1 TO 2 TABLETS BY MOUTH AT BEDTIME 07/02 completed Not Available Not Available Not Available bisacodyl 5 mg tablet,samantha yed release TAKE ALL 6 TABLETS BY MOUTH AT 8 AM ON 09/23/2102/10 completed Not Available Not Available Not Available doxycycline hyclate 100 mg tablet Take 1 tablet twice a day by oral route for 7 days. active Not Available Not Available No t Available azithromyci n 500 mg tablet 02/03 completed Not Available Not Available Not Available omeprazole 2021 active Not Available Not Available Not Avai lable lidocaine (PF) 10 mg/mL (1 %) injection solution In office injection administe red by the provider 07/[address] [facility]: [phone] Not Available Not Available Not Available Suprep Bowel Prep Kit 17.5 gram-3.13 gram-1.6 gram oral solution 06/30 completed Not Available Not Available Not Available ropivacaine (PF) 5 mg/mL (0.5 %) injection solution in office [address] [facility] [phone] -[phone] Not Available Not Available Not Available Fluzone Quad (PF) 60 mcg (15 mcg x 4)/0.5 mL IM syringe PHARMACIS T ADMINISTE RED IMMUNIZAT ION ADMINISTE RED AT TIME OF DISPENSIN G active Not Available Not Available No t Available Vitals Date Recorded Body height Provider Name an d Address Organization Details Last Updated DateTime 04/29/2022 165.1 cm LUX Andersen [employer] 04/29/2022 15:10:42 Date Recorded Body height Body mass index (BMI) Body weight Provider Name and Address Organization Details Last Updated DateTime 07/29/2022 162.56 cm 46.9 kg/m2 687759.72 g LUX Andersen [employer] 07/29/2022 15:15:48 Date Recorded Body height Provider Name an d Address Organization Details Last Updated DateTime 10/30/2022 162.56 cm Wanda Alcocer CMA [facility] 10/30/2022 14:05:40 Date Recorded Body height Body mass index (BMI) Body weight Provider Name and Address Organization Details Last Updated DateTime 01/27/2023 162.56 cm 47.5 kg/m2 890608.09 g Xiomara Anderson CNA [employer] 01/27/2023 13:54:58 Date Recorded Body height Provider Name an d Address Organization Details Last Updated DateTime 04/28/2023 162.56 cm LUX Andersen [facility] 04/28/2023 14:22:24 Social History Question Answer Notes LastModified by Organizat ion Details LastModified Time Tobacco Smoking Status Never Smoker Not Available [facility] 04/22/2022 04:28:55 Do You Have An Advance Directive? No MIGRATION.[id number] [id number] Information not available 04/22/2022 What Is Your Level Of Alcohol Consumption? None MIGRATION.78114 97140 Information not available 04/22/2022 What Is Your Level Of Caffeine Consumption? Moderate MIGRATION.37027 39222 Information not available 04/22/2022 In The 14 Days Before Symptom Onset, Have You Had Close Contact With A Laboratory-confir med COVID-19 While That Case Was Ill? No MIGRATION.09123 33385 Information not available 04/22/2022 In The 14 Days Before Symptom Onset, Have You Had Close Contact With A Person Who Is Under Investigation For COVID-19 While That Person Was Ill? No MIGRATION.76497 64256 Information not available 04/22/2022 What Type Of Diet Are You Following? REGULAR MIGRATION.56990 32600 Information not available 04/22/2022 What Is The Highest Grade Or Level Of School You Have Completed Or The Highest Degree You Have Received? [id number] MIGRATION.75302 80219 Information not available 04/22/2022 What Is Your Occupation? [employer] MIGRATION.24200 08892 Information not available 04/22/2022 Have There Been Any Changes To Your Family Or Social Situation? No MIGRATION.62646 31693 Information not available 04/22/2022 What Is The Fluoride Status Of Your Home? Unknown MIGRATION.13450 16836 Information not available 04/22/2022 Where Do You Live? [place] MIGRATION.54162 68381 Information not available 04/22/2022 Do You Have A Medical Power Of Snake Charmer? No MIGRATION.05776 91023 Information not available 04/22/2022 What Was The Date Of Your Most Recent Tobacco Screening? 02/10/2022 MIGRATION.73863 00266 Information not available 04/22/2022 Do You Have Any Pets? No MIGRATION.83581 36080 Information not available 04/22/2022 Do You Have Smoke And Carbon Monoxide Detectors In Your Home? Yes MIGRATION.81211 67757 Information not available 04/22/2022 Are You Passively Exposed To Smoke? No MIGRATION.53320 02438 Information not available 04/22/2022 Are There Any Smokers In Your House? No MIGRATION.77647 82608 Information not available 04/22/2022 Do You Feel Stressed (tense, Restless, Nervous, Or Anxious, Or Unable To Sleep At Night)? [id number] MIGRATION.08283 05939 Information not available 04/22/2022 Do You Use Any Illicit Or Recreational Drugs? No MIGRATION.61200 74171 Information not available 04/22/2022 Have You Recently Traveled Abroad? No MIGRATION.59375 55836 Information not available 04/22/2022 Do You Have Any Dietary Restrictions? No MIGRATION.78452 40655 Information not available 04/22/2022 Do You Or Have You Ever Used Any Other Forms Of Tobacco Or Nicotine? No MIGRATION.20877 15235 Information not available 04/22/2022 Sex: Unknown Functional Status None recorded. Mental Status None recorded. Family History Relationship Description Onset Age of this Age Resolved Age Notes LastModified by Organization Details LastModified Time Mother Family history of stroke [id number] Not available 04/22/2022 04:42:18 Mother Hypertensive disorder MIGRATION.466 [id number] Not available 04/22/2022 04:42:18 Father Family history of malignant neoplasm [id number].280 [id number] Not available 04/22/2022 04:42:18 Father Heart disease Not available 2022 15:10:11 Mother Diabetes mellitus [email or web address] Not available 2022 15:10:27 Medical History Condition Response ARTHRITIS Y ULCERS Y USE OF NSAIDS Y Gynecological HistoryNo gynecological history recorded. Obstetrics History GPAL:G 0 P 0 0 0 0 Immunizations Vaccine Type Date Status Note Provider Nam e and Address Organization Details Recorded Time influenza, unspecified formulation 3 completed [place] [employer] [facility] 01/06/2023 12:56:47 COVID-19, mRNA, LNP-S, PF, 30 mcg/0.3 mL dose 3 completed [place] [employer] 01/06/2023 12:56:54 COVID-19, mRNA, LNP-S, PF, 30 mcg/0.3 mL dose 1 completed Not Available [facility] 07/01/2022 21:23:57 COVID-19, mRNA, LNP-S, PF, 30 mcg/0.3 mL dose 1 completed Not Available [facility] 07/01/2022 21:23:57 COVID-19, mRNA, LNP-S, PF, 30 mcg/0.3 mL dose 1 completed Not Available [facility] 07/01/2022 21:23:57 Influenza, split virus, quadrivalent, PF 6 completed Not Available [facility] 07/01/2022 21:23:57 Past Encounters Encounter ID Performer Location Encounter Start Date Encounter Closed Date Diagnosis/Indication Diagnosis SNOMED-CT Code Diagnosis ICD10 Code Diagnosis Note [id number] [facility] [place] [address] [place] [address] 06/19/2020 00:00:00 06/19/2020 15:04:37 [id number] [facility] [place] [address] [place] [address] 09/20/2020 00:00:00 09/20/2020 15:59:27 [id number] [facility] [place] [address] [place] [address] 01/01/2021 00:00:00 01/01/2021 14:09:44 [id number] [facility] [place] [address] [place] [address] 04/02/2021 00:00:00 04/02/2021 15:05:46 [id number] [facility] [place] [address] [place] [address] 07/02/2021 00:00:00 07/02/2021 16:07:10 [id number] [facility] [place] [address] [facility] [address] , [place] [address] 08/21/2021 00:00:00 08/31/2021 12:23:50 [id number] [facility] [place] [address] [place] [address] 10/15/2021 00:00:00 10/15/2021 16:34:19 [id number] [facility] [place] [address] [place] [address] 01/14/2022 00:00:00 01/14/2022 14:10:37 [id number] [facility] [place] [address] [facility] [address] [place] [address] 02/10/2022 00:00:00 02/13/2022 12:50:09 [id number] TONE Albrecht [facility] [place] [address] [place] [address] 04/29/2022 14:59:07 04/29/2022 16:04:37 Osteoarthritis 243858421 M17.0 [id number] TONE Albrecht [facility] [place] [address] [place] [address] 07/29/2022 14:48:21 07/29/2022 16:00:57 Bilateral osteoarthritis of knees 2469187803 03389 M17.0 [id number] TONE Albrecht [facility] [place] [address] [place] [address] 10/30/2022 13:49:08 10/30/2022 15:00:26 Bilateral osteoarthritis of knees 4327038344 98286 M17.0 [id number] TONE Wood [facility] [place] [address] [place] [address] 01/27/2023 13:46:13 01/27/2023 14:05:19 Bilateral osteoarthritis of knees 2760677143 57224 M17.0 [id number] TONE Albrecht [facility] [place] [address] [facility] [address] [place] [address] 04/28/2023 14:20:01 04/28/2023 15:13:55 Bilateral osteoarthritis of knees 5365724621 65254 M17.0 Health Concerns Section Related Observation LastModified by Organization Detai ls LastModified Time None Recorded Concern Status LastModified by Organization Details LastModified Time None Recorded Advance Directives Directive N: Payers Encounter Date Sequence Insurance Name Policy Number Policy Donohue Covered Member ID Donohue Member ID Guarantor Name 04/29/2022 1 [employer] [id number] Jessie L Nguyen [id number] Jessie L Nguyen 07/29/2022 1 [employer] [id number] Jessie L Nguyen [id number] Jessie L Nguyen 10/30/2022 1 [employer]US [id number] Jessie L Nguyen [id number] Jessie L Nguyen 01/27/2023 1 [employer]US [id number] Jessie L Nguyen [id number] Jessie L Nguyen 04/28/2023 1 [employer] [id number] Jessie L Nguyen [id number] Jessie L Nguyen Notes Date Note Type Note Provider Name and Address Organization Details Recorded Time 01/27/2023 text/html Patient returns with bilateral knee pain she has moderately severe primary osteoarthritis both knees she comes in for a 3 months for cortisone injections she states they last almost exactly 3 month then the pain returns. She has aching pain limits her daily activities at 5 ft 6 in tall 277 lb her BMI is too high for total knee arthroplasty she also has some lymphedema both lower extremities. Patient states she has had no new trauma or injury no new symptoms or complaints she comes in today requesting repeat cortisone injections both knees. TONE Wood [address] [facility], [place], [address], [place] [employer] 01/27/2023 14:20:26 OBGyn Episode No OBEpisode recorded.
--- OUTSIDE RECORDS SUMMARY | 2024-05-01 07:38 | XMS_ITS | Patient Health Summary ---
Author Organization [facility] Address [address] [place] [address] Care Team Providers Care Logging Tractor Operator Name Role Phone Unavailable Primary Care Provider Unavailabl e Note from [facility],non-owned Affiliates and Associated Physician Practices is amultiple site organization consisting of ambulatory clinics and hospital sitesin [place], [place], [place] and [place]. This disclosure is being madepursuant to the Care Everywhere program and may not contain all information available regarding this patient. Last updated 17.[facility] Allergies No known active allergies Medications * Be aware that medications may not be up to date on this document. Alwaysverify current medications with the patient. * OMEPRAZOLE (ZEGERID) 20 MG PACK Take by mouth. * vitamin D2 (ERGOCALCIFEROL) 84911 UNIT capsule Take 1 Cap by mouth every 30 days. * omeprazole (PRILOSEC) 20 MG capsule(Started 12/24/2010) Take 1 Cap by mouth daily before breakfast. 11 refills left Social History Tobacco Use Types Packs/Day Years [...] 36.6 C (97.8 F) 03/25/2009 2:14 PM ORTHODONTIC LAB TECHNICIAN Respiratory Rate 18 12/24/2010 1:17 PM CDT Oxygen Saturation - - Inhaled Oxygen Concentration - - Weight 107.3 kg (236 lb 8 oz) 12/24/2010 1:17 PM CDT Height 163.8 cm (5' 4.5 ) 12/24/2010 1:17 PM CDT Body Mass Index 39.97 12/24/2010 1:17 PM CDT Procedures * LAB RESULTS ORDER(Performed 05/04/2009) * LAB RESULTS ORDER(Performed 03/04/2009) * GLUCOSE - POINT OF CARE(Performed 02/23/2008) Performed for Morbid Obesity (HCC) * GLUCOSE - POINT OF CARE(Performed 02/23/2008) Performed for Morbid Obesity (HCC) * GLUCOSE - POINT OF CARE(Performed 02/22/2008) Performed for Morbid Obesity (HCC) * GLUCOSE - POINT OF CARE(Performed 02/22/2008) Performed for Morbid Obesity (HCC) * GLUCOSE - POINT OF CARE(Performed 02/22/2008) Performed for Morbid Obesity (HCC) * FL FLUORO UPPER GI TRACT + KUB(Performed 02/22/2008) Performed for Follow-Up Surgery NOS * GLUCOSE - POINT OF CARE(Performed 02/22/2008) Performed for Morbid Obesity (HCC) * BASIC METABOLIC PANEL (CALCIUM TOTAL)(Performed 02/22/2008) Performed for Morbid Obesity (HCC) * CBC W AUTO DIFFERENTIAL(Performed 02/22/2008) Performed for Morbid Obesity (HCC) * GLUCOSE - POINT OF CARE(Performed 02/21/2008) Performed for Morbid Obesity (HCC) * HGB HCT PANEL(Performed 02/21/2008) Performed for Morbid Obesity (HCC) * GLUCOSE - POINT OF CARE(Performed 02/21/2008) Performed for Morbid Obesity (HCC) * GLUCOSE - POINT OF CARE(Performed 02/21/2008) Performed for Morbid Obesity (HCC) * CROSSMATCH RBC ADD X2(Performed 02/21/2008) Performed for Morbid Obesity (HCC) * HCG URINE QUALITATIVE - POINT OF CARE(Performed 02/21/2008) Performed for Morbid Obesity (HCC) * TYPE + SCREEN PANEL(Performed 02/21/2008) Performed for Morbid Obesity (HCC) * PT-INR(Performed 02/21/2008) Performed for Morbid Obesity (HCC) * PT-INR(Performed 01/11/2008) Performed for Morbid Obesity (HCC) Results * LAB RESULTS ORDER (05/04/2009 9:44 AM ORTHODONTIC LAB TECHNICIAN) Only the most recent of2 resultswithin the time period is included. Narrative 05/04/2009 9:44 AM ORTHODONTIC LAB TECHNICIAN Ordered by an unspecified provider. Transcriptions Document, Scanned - 03/25/2009 12:00 AM ORTHODONTIC LAB TECHNICIAN Scanned Document LAB - THERAPEUTIC DR UG MONITORING ORDERABLES * GLUCOSE - POINT OF CARE (02/23/2008 12:13 PM ORTHODONTIC LAB TECHNICIAN) Only the most recent of9 resultswithin the time period is included. Glucose WB/POC 100 75 - 110 mg/dl [facility] BLOOD SPECIMEN / Unknown 02/23/2008 12:13 PM ORTHODONTIC LAB TECHNICIAN Arthur Ocamop MD LAB - POINT OF CA RE ORDERABLES [facility] * FL FLUORO UPPER GI TRACT + KUB (02/22/2008 8:25 AM ORTHODONTIC LAB TECHNICIAN) Anatomical Region Laterality Modality Abdomen Other 02/22/2008 8:25 AM ORTHODONTIC LAB TECHNICIAN Narrative 02/22/2008 3:09 PM ORTHODONTIC LAB TECHNICIAN GASTROGRAFIN UPPER GI EXAMINATION CLINICAL INDICATION- status post gastric bypass surgery, recent postoperative state. DESCRIPTION- The patient swallowed a small quantity of water-soluble Gastrografin contrast and fluoroscopic observation with multiple spot images obtained in various projections of the esophagus and gastric bypass in the left upper quadrant. FINDINGS- There is good flow of contrast from the esophagus into the gastric remnant and subsequently into the small bowel without definite evidence for leak on this limited water soluble contrast examination. The proximal small bowel is nondilated. IMPRESSION- No evidence for obstruction or a leakage in the region of the patient's gastric bypass, as described above. Read By- AUGUSTINE GUEVARA M.D. Released By- AUGUSTINE GUEVARA M.D. Released Date Time- 02/22/08 1509 Steward/Stewardess Third- SVM ADM- COCOWilliam J STEPHEN REF- CON- HILL, CHRISTOPHER L PCP- ADAMS, MICHAEL J [facility]- Procedure Note Lillian Augustine - 02/22/2008 GASTROGRAFIN UPPER GI EXAMINATION CLINICAL INDICATION- status post gastric bypass surgery, recent postoperative state. DESCRIPTION- The patient swallowed a small quantity of water-soluble Gastrografin contrast and fluoroscopic observation with multiple spot images obtained in various projections of the esophagus and gastric bypass in the left upper quadrant. FINDINGS- There is good flow of contrast from the esophagus into the gastric remnant and subsequently into the small bowel without definite evidence for leak on this limited water soluble contrast examination. The proximal small bowel is nondilated. IMPRESSION- No evidence for obstruction or a leakage in the region of the patient's gastric bypass, as described above. Read By- AUGUSTINE GUEVARA M.D. Released By- AUGUSTINE GUEVARA M.D. Released Date Time- 02/22/08 1509 Steward/Stewardess Third- SVM William HOWELL J STEPHEN REF- CON- HILL, CHRISTOPHER L PCP- ADAMS, MICHAEL J [facility]- Arthur Ocampo MD FLUOROSCOPY ORDER GRETTA * (ABNORMAL) CBC W AUTO DIFFERENTIAL (02/22/2008 4:30 AM ORTHODONTIC LAB TECHNICIAN) Pathologist [facility] WBC 12.1(H) 4.5 - 11.0 1000/mm3 [facility] RBC 4.38 4.2 - 5.4 10X6 [facility] Hemoglobin 11.8(L) 12.0 - 16.0 gm/dl [facility] Hematocrit 36.4 36.0 - 48.0 % [facility] MCV 83.1 80.0 - 99.0 fl [facility] MCH 26.9 25.0 - 31.0 pg [facility] MCHC 32.4 32.0 - 36.0 gm/dl [facility] RDW 14.6(H) 11.5 - 14.5 % [facility] Platelet Count 206 130.0 - 400.0 1000/mm3 [facility] Granulocytes % 74.1(H) 40.0 - 70.0 % [facility] Lymphocytes % Manual 12.7(L) 22.0 - 40.0 % [facility] Monocytes % 12.9(H) 2.0 - 10.0 % [facility] Eosinophils % 0.1 0.0 - 6.0 % [facility] Basophils % 0.2 0.0 - 3.0 % [facility] Comment Manual Diff Not Indicated [facility] Granulocytes Absolute 8.99(H) 1.8 - 7.7 1000/mm3 [facility] BLOOD SPECIMEN / Unknown 02/22/2008 4:30 AM ORTHODONTIC LAB TECHNICIAN Arthur Ocampo MD LAB - HEMATOLOGY ORDERABLES [facility] * (ABNORMAL) BASIC METABOLIC PANEL (CALCIUM TOTAL) (02/22/2008 4:30 AM ORTHODONTIC LAB TECHNICIAN) BUN 5(L) 7.0 - 17.0 mg/dl [facility] Sodium 134(L) 137 - 145 mEq/L [facility] Potassium 4.1 3.6 - 5.0 mEq/L [facility] Chloride 103 98.0 - 107.0 mEq/L [facility] CO2 24 22.0 - 30.0 mEq/L [facility] Anion Gap 7.2 [facility] Glucose 159(H) 75 - 110 mg/dl [facility] Creatinine 0.8 0.7 - 1.2 mg/dl [facility] Calcium 8.1(L) 8.4 - 10.2 mg/dl [facility] eGFR by MDRD 87.3 ml/min/1.73 m2 [facility] BLOOD SPECIMEN / Unknown 02/22/2008 4:30 AM ORTHODONTIC LAB TECHNICIAN Arthur Ocampo MD LAB - CHEMISTRY O RDERABLES Performing Organization Address [facility] de Phone Number [facility] * HGB HCT PANEL (02/21/2008 6:31 PM ORTHODONTIC LAB TECHNICIAN) Hemoglobin 12.5 12.0 - 16.0 gm/dl [facility] Hematocrit 38.0 36.0 - 48.0 % [facility] BLOOD SPECIMEN / Unknown 02/21/2008 6:31 PM ORTHODONTIC LAB TECHNICIAN Arthur Ocampo MD LAB - HEMATOLOGY ORDERABLES Performing Organization Address [facility] de Phone Number [facility] * CROSSMATCH RBC ADD X2 (02/21/2008 11:27 AM ORTHODONTIC LAB TECHNICIAN) Number of Units 2 [facility] BLOOD SPECIMEN / Unknown 02/21/2008 11:27 AM ORTHODONTIC LAB TECHNICIAN Chance Mcelroy MD LAB - BLOOD BANK ORD ERABLES Performing Organization Address [facility] de Phone Number [facility] * HCG URINE QUALITATIVE - POINT OF CARE (02/21/2008 7:00 AM ORTHODONTIC LAB TECHNICIAN) HCG Qual Urine Not Detected Not Detected [facility] Comment , Urine: Test performed by OPS Staff [facility] URINE / Unknown 02/21/2008 7 :00 AM ORTHODONTIC LAB TECHNICIAN Arthur Ocampo MD LAB - POINT OF CA RE ORDERABLES Performing Organization Address [facility] de Phone Number [facility] * TYPE + SCREEN PANEL (02/21/2008 6:55 AM ORTHODONTIC LAB TECHNICIAN) ABO Rh B Pos [facility] Antibody Screen Neg [facility] BLOOD SPECIMEN / Unknown 02/21/2008 6:55 AM ORTHODONTIC LAB TECHNICIAN Narrative [facility] - 02/21/2008 7:56 AM ORTHODONTIC LAB TECHNICIAN INR Arthur Ocampo MD LAB - BLOOD BANK ORDERABLES Performing Organization Address [facility]/State/ZIP Co de Phone Number [facility] * PT-INR (02/21/2008 6:55 AM ORTHODONTIC LAB TECHNICIAN) Only the most recent of2 resultswithin the time period is included. PT 10.3 9.4 - 11.2 seconds [facility] INR 1.0 0.9 - 1.1 [facility] Interpretation INR D [facility] Comment: Conventional Anticoagulation INR 2.0-3.0 Intensive Anticoagulation INR 2.5-3.5 BLOOD SPECIMEN / Unknown 02/21/2008 6:55 AM ORTHODONTIC LAB TECHNICIAN Narrative [facility] - 02/21/2008 7:32 AM ORTHODONTIC LAB TECHNICIAN INR Arthur Ocampo MD LAB - COAGULATION ORDERABLES [facility]
--- OUTSIDE RECORDS SUMMARY | 2024-05-01 07:38 | XMS_ITS | Encounter Summary ---
Author Organization [facility] Address [address] [place] [address] Care Team Providers Care Immigration Services Officer Name Role Phone Unavailable Primary Care Provider Unavailabl e Encounter Details Date Type Department Care Team (Late st Contact Info) Description 04/29/2024 External Device Data [facility] ABSTRACTION Provider, Abstract NO ADDRESS ON FILE Social History Tobacco Use Types Packs/Day Years Used Date Smoking Tobacco: Never Smokeless Tobacco: Never Alcohol Use Standard Drinks/Week Comments Never 0 (1 standard drink = 0.6 oz pur e alcohol) Comments Unknown Sex and Gender Information Value Date Recorded Sex Assigned at Not on file Legal Sex Female 9:44 AM CDT Gender Identity Not on file Sexual Orientation Not on file documented as of this encounter Plan of Treatment Upcoming Encounters Date Type Department Care Team (Late st Contact Info) Description 05/18/2024 2:00 PM CDT Office Visit [facility] Oncology and Hematology - Subhash [address] [place] [address] [facility] [address] [place] [address] Salomón Qiu MD [address] [place] [address] documented as of this encounter Visit Diagnoses Not on filedocumented in this encounter
--- OUTSIDE RECORDS SUMMARY | 2024-05-01 07:38 | XMS_ITS | CONTINUITY OF CARE DOCUMENT ---
Author Name leonel joseshawn Address Unknown Organization [facility] Address [address] [place] [address] [address] [place] [address] Phone [phone] Care Team Providers Care Pulp Drier Firer Name Role Phone Ja Hernandez MD Unavailable [phone] SAMEER SAENZ MD Unavailable SAMEER SAENZ MD Unavailable PROBLEMS Condition Status Date Provider Notes Iron deficiency anemia active Sharlene Hernandez RN VITAL SIGNS Date Observation Value Provider Body Mass Index (Ratio) 44.76 kg/m2 Tess ica Mason Perkins blood pressure, cuff size regular Je ssica Mason Perkins blood pressure, diastolic 70 mm[Hg] Je ssica Mason Perkins blood pressure, systolic 130 mm[Hg] Dora anatoly Mason Perkins oxygen saturation, oximetry 97 % Rosa Mason Perkins respiratory rate E&M 18 /min Rosa Mason Perkins pulse rate 79 /min Rosa Mason Underwoodso n weight E&M 285.8 [lb_av] Rosa N Wils on Body Mass Index (Ratio) 39.15 kg/m2 Jan ta Mary RN blood pressure, cuff size large Sh marilee Mary RN blood pressure, diastolic 80 mm[Hg] Sh marilee Mary RN blood pressure, systolic 124 mm[Hg] Mason Hernandez RN oxygen saturation, oximetry 99 % Sharlene Hernandez RN respiratory rate E&M 18 /min Delta Mary RN pulse rate 74 /min Sharlene Hernandez R N weight E&M 250 [lb_av] Sharlene Hernandez R N height E&M 67 [in_i] Sharlene Hernandez R N INSURANCE PROVIDERS Payer name Policy type / Coverage type [place] red libertarian ID [facility] [employer] 9 [id number] HISTORY OF PROCEDURES Procedure Date Procedure Name Provider Procedure Notes S tatus Injectafer 750mg Ja Hernandez MD co mpleted Therapeutic IV Infus ion up to 1 hour Ja Hernandez MD completed Injectafer 750mg Ja Hernandez MD co mpleted Therapeutic IV Infus ion up to 1 hour Ja Hernandez MD completed
--- OUTSIDE RECORDS SUMMARY | 2024-05-01 07:38 | XMS_ITS | Referral Summary ---
Author Organization [facility] Address [address] [place] [address] Care Team Providers Care Aviculturist Name Role Phone Unavailable Primary Care Provider Unavailabl e Source Comments [facility],non-owned Affiliates and Associated Physician Practices is amultiple site organization consisting of ambulatory clinics and hospital sitesin [place], [place] and [place]. This disclosure is being madepursuant to the Care Everywhere program and may not contain all information available regarding this patient. Last updated 17.[employer] Allergies No known active allergies Medications * Be aware that medications may not be up to date on this document. Alwaysverify current medications with the patient. Medication Sig Dispensed Refills Start Date End Date Status OMEPRAZOLE (ZEGERID) 20 MG PACK Take by mouth. 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
== END 2024-05-01 07:29 | disposition home or self-care (01) ==
PROVIDERS: Visit Provider Internal Medicine
DX: I35.0 Nonrheumatic aortic (valve) stenosis (principal); R01.1 Cardiac murmur, unspecified
CPT/HCPCS: 93306

== ENCOUNTER 2024-05-11 10:51 | Outpatient (CLI) | payer BC, SELFPAY ==
[2024-05-11 11:04] LABS: Hemoglobin 12.6 g/dL (12.0-15.0); Mean Corpuscular HGB Conc 31.5 g/dl (32-36); Mean Corpuscular Hemoglobin 27.5 pg (26-34); Mean Corpuscular Volume 87.1 fl (80-100); Mean Platelet Volume 10.1 fl (7.4-10.4); Platelet Count Result 255 k/mm3 (150-375); Red Blood Count 4.59 M/mm3 (4.2-5.4); Red Cell Distribution Width 15.8 % (11.5-14.5); White Blood Count 7.1 K/mm3 (4.5-10.0)
--- OUTSIDE RECORDS SUMMARY | 2024-05-11 11:45 | XMS_ITS ---
Author Organization [facility] Address [address] [place], [place] [address] Care Team Providers Care Studio Director Name Role Phone Chance Mcelroy Unavailable Unavailable GLO STEIN Unavailable [phone] REASON FOR VISIT The patient has a [...] Location Date Provider Diagnosis [facility] [place] [address] [place], [place] [id number] 09/06/2023 GLO STEIN Ingrowing nail L60.0 ; [...] Notes * Bettye KOENIGB:1975 (48 yo F)Acc No.[id number]:09/06/2023 Progress Notes Patient: Jessie SALDAÑA Provider: Kilo Stein DPM :1975 A ge:48 Y S ex:Female Date:09/06/2023 Address:[address] [place] [address] Subjective: * Chief Complaints: * 1 . [...] check) * Billing Information: * Visit Code: 77433 Office Visit, New Pt., Level 3. Modifiers: 25 * Procedure Codes: 88201 REMOVAL OF NAIL BED. Modifiers: TA * Sign off status: Completed true * Provider: Kilo Stein DPM Date: 0 09/06/2023 Generated for Jazlyn pizarro/Tesfaye/Magdi on: 0 05/11/2024 11:45 AM CDT History and Physical Notes * [...]
--- OUTSIDE RECORDS SUMMARY | 2024-05-11 11:45 | XMS_ITS | Clinical Summary ---
Author Organization [facility] Address [address] [place] [address] Care Team Providers Care Professor Of Communication And Writing Name Role Phone Unavailable Primary Care Provider Unavailabl e Source Comments [facility],non-owned Affiliates and Associated Physician Practices is amultiple site organization consisting of ambulatory clinics and hospital sitesin [place], [place], [place] and [place]. This disclosure is being madepursuant to the Care Everywhere program and may not contain all information available regarding this patient. Last updated 17.[employer] [facility] Allergies No known active allergies Medications * Be aware that medications may not be up to date on this document. Alwaysverify current medications with the patient. Medication Sig Dispensed Refills Start Date End Date Status OMEPRAZOLE (ZEGERID) 20 MG PACK Take by mouth. 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
--- OUTSIDE RECORDS SUMMARY | 2024-05-11 11:46 | XMS_ITS | Encounter Summary ---
Author Organization [facility] Address [address] [place] [address] Care Team Providers Care Pump Stitcher Name Role Phone Unavailable Primary Care Provider Unavailabl e Encounter Details Date Type Department Care Team (Late st Contact Info) Description 05/10/2024 External Device Data STL ABSTRACTION Provider, Abstract [...] Description 05/18/2024 2:00 PM CDT Office Visit [facility] Oncology and Hematology - Subhash [address] [place] [address] [facility] [address] [place] [address] Salomón Qiu MD [address] [place] [address] documented as of this encounter Visit Diagnoses Not on filedocumented in this encounter
--- OUTSIDE RECORDS SUMMARY | 2024-05-11 11:46 | XMS_ITS | Continuity of Care Document ---
Author Organization [facility] Address [address] [place] [address] [address] [place] [address] Phone Care Team Providers Care School Resource Officer Name Role Phone Florence Tinajero Unavailable Unavailable Advance Directives Directive Yes / No Effective Date File Name No Information Encounters Encounter Description Practice Location Reason(s) For Visit Diagnoses Date Provider Providers Copied on Encounter [facility], [address] [place] [address] [address], [place], [place], [address], [place] tel:[phone] [facility] No Information Sep-0 7-200 6 Tanvi Henriquez. [address] , [address], [place], [address], [place]. tel:[phone] Family History Family Member Type Diagnosis Age [...]
--- OUTSIDE RECORDS SUMMARY | 2024-05-11 11:46 | XMS_ITS | Patient Health Record ---
Author Organization [facility] Address [address] [place], [place] [address] Care Team Providers Care Fast Food Assistant Restaurant Manager Name Role Phone Chance Mcelroy Unavailable Unavailable SNOOK, GLO Unavailable [phone] Reason For Referral No Information Vital Signs Weight-kg 121.11 kg 09/06/2023 Weight 267 lbs 09/06/2023 Encounters Encounter Location Date Provider Diagnosis [facility] [place] [address] [place], [place] [id number] 09/06/2023 GLO SNOOK Ingrowing nail L60.0 ; Cellulitis of left toe L03.032 and Pain in left toe(s) M79.675 [facility] [place] [address] [place], [place] [id number] 09/13/2023 GLO SNOOK Ingrowing nail L60.0 and [...] Insured Coverage Start Date Coverage End Date [facility] [address] [address] [place] [address] [id number] Jessie Nguyen Self - patient is the insured Medical (General) History Medical History History ICD Code Blood transfusion anemia Arthritis
--- OUTSIDE RECORDS SUMMARY | 2024-05-11 11:46 | XMS_ITS ---
Author Organization [facility] Address [address] [place], [place] [address] Care Team Providers Care Steno Typist Name Role Phone Navi Chance Unavailable Unavailable GLO STEIN Unavailable [phone] REASON FOR VISIT Patient returns to the [...] Location Date Provider Diagnosis [facility] [place] [address] [place], [place] [phone] 09/13/2023 GLO STEIN Ingrowing nail L60.0 and [...] Notes * Alberto KOENIGaDOB:1975 (48 yo F)Acc No.[id number]:09/13/2023 Patient: Jessie SALDAÑA Provider: Kilo Stein DPM :1975 A ge:48 Y S ex:Female Date:09/13/2023 Address:[address] [place], [place] [id number] Subjective: * Chief Complaints: * 1 . [...] on the bandage when removed., , [place]: [facility]. * Medical History: * Medications: T [...] Information: * Visit Code: * Procedure Codes: 97160 POSTOP FOLLOW-UP VISIT. * Sign off status: Completed true * Provider: Kilo Stein DPM Date: 0 09/13/2023 Generated for Jazlyn pizarro/Tesfaye/Magdi on: 0 05/11/2024 [...]
--- OUTSIDE RECORDS SUMMARY | 2024-05-11 11:46 | XMS_ITS | CONTINUITY OF CARE DOCUMENT ---
Author Name leonel joseshawn Address Unknown Organization [facility] Address [address] [place] [address] [address] [place] [address] Phone [phone] Care Team Providers Care Reinforcing Steel Worker Name Role Phone Ja Hernandez MD Unavailable SAMEER SAENZ MD Unavailable SAMEER SAENZ MD Unavailable PROBLEMS Condition Status Date Provider Notes Iron deficiency anemia active Sharlene Hernandez RN VITAL SIGNS Date Observation Value Provider Body Mass Index (Ratio) 44.76 kg/m2 Tess ica N Gregorio blood pressure, cuff size regular Je ssica [...] Body Mass Index (Ratio) 39.15 kg/m2 Jan Hernandez RN blood pressure, cuff size large Sh marilee Mary RN blood pressure, diastolic 80 mm[Hg] Sh marilee Mary RN blood pressure, systolic 124 mm[Hg] Mason Hernandez RN oxygen saturation, oximetry 99 % Sharlene Hernandez RN respiratory rate E&M 18 /min Sharlene Hernandez RN pulse rate 74 /min Sharlene Hernandez R N weight E&M 250 [lb_av] Sharlene Hernandez R N height E&M 67 [in_i] Sharlene Hernandez R N INSURANCE PROVIDERS Payer name Policy type / Coverage type [place] red republican ID [employer] [id number] HISTORY OF PROCEDURES Procedure Date Procedure Name Provider Procedure Notes S tatus Injectafer 750mg Ja Hernandez MD co mpleted Therapeutic IV Infus ion up to 1 hour Ja Hernandez MD completed Injectafer 750mg Ja Hernandez MD co mpleted Therapeutic IV Infus ion up to 1 hour Ja Hernandez MD completed
--- OUTSIDE RECORDS SUMMARY | 2024-05-11 11:46 | XMS_ITS | Data Portability ---
Author Organization [facility] González Jansen Address [address] [facility] [place] [address] Care Team Providers Care Technical Photographer Name Role Phone DANY SAMEER Primary Care Provider MAICO TAYLOR Cement Mason Helper [phone] Assessment Encounter Date Assessment Date Assessment LastModified [...] would like for her to avoid NSAID [email or web address] Not available 08/11/2023 14:50:32 10/14/2023 10/14/2023 for the leg we will try Medrol Dosepak anemia be worked up with CBC CMP and iron kinetics obesity healthy lifestyle care instructions obtain records from previous clinic regular visit with me in 6 months mammogram Cologuard and see ortho [email or web address] Not available 10/23/2023 20:04:25 12/13/2023 12/13/2023 flu shot. Health y lifestyle care instructions. She is seeing Hematology for the anemia. For her uterine fibroid she follows up with communications intern. Just had echo in August of 2023. She refuses sleep study. follow up 3-4 months [email or web address] Not available 12/26/2023 11:06:46 04/10/2024 04/10/2024 echocardiogram lifestyle care instructions she sees communications intern regularly we will get mammogram and Pap smear from there she does not want a pneumococcal vaccination obtain her colonoscopy report [email or web address] Not available 04/24/2024 20:34:07 Plan of Treatment Reminders Order Date Submit Date Provider Last Modified By Organization Details Last Modified Time Details Appointments ANY 15 2024 09:15A Jesus Hinkle MD Not available Not available Not available ANY 15 2024 10:15A Jesus Mcelroy MD Not available Not available Not available Lab CMP, serum or plasma 2023 024 [facility], [address], [place], [address], 10/22/2023 03:37:04 CBC w/ auto diff 2023 024 [facility], [address], [place], [address], 10/22/2023 03:37:06 ferritin, serum or plasma 2023 024 [facility], [address], [place], [address], 10/22/2023 03:37:05 iron + total iron-bind ing capacity (TIBC), serum 2023 024 [facility], [address], [place], [address], 10/22/2023 03:37:05 iron + total iron-bind ing capacity (TIBC), serum 2023 024 [facility], [address], [place], [address], 08/24/2023 16:30:46 ferritin, serum or plasma 2023 024 [facility] [place], [address], [place], [address], 08/24/2023 16:30:53 CBC w/ auto diff 2023 024 [facility], [address], [place], [address], 08/24/2023 16:31:02 CMP, serum or plasma 2023 024 [facility], [address], [place], [address], 08/12/2023 12:42:36 vitamin B12 + folate, serum or blood 2023 024 [facility], [address], [place], [address], 08/24/2023 16:30:06 TSH, ultra-sen sitive, serum 2023 024 [facility], [address], [place], [address], 08/24/2023 16:30:34 unlisted lab - T4, free 2023 024 [facility], [address], [place], [address], 08/24/2023 16:30:22 T3, free, serum or plasma 2023 024 [facility], [address], [place], [address], 08/24/2023 16:31:12 Referral None recorded. Procedures None recorded. Surgeries None recorded. Imaging US, echocardi ogram [address] [facility] [address], [place], [address], 05/01/2024 15:30:03 US, echocardi ogram [address] [facility] [address], [place], [address], 09/09/2023 10:42:09 Medication Orders Medrol (Chidi) 4 mg tablets in a dose pack 2023 024 [id number], [address] , [place], [place], [id number], 12/13/2023 14:32:13 Patient TargetsNo targets recorded. Patient Instructions Encounter Date Encounter Id Patient Instructions Last Modified By Organization Details Last Modified Time 10/14/2023 [id number] A healthy lifestyle: care instructions Not available 10/14/2023 17:50:47 12/13/2023 [id number] A healthy lifestyle: care instructions [email or web address] Not available 12/13/2023 18:22:10 04/10/2024 [id number] A healthy lifestyle: care instructions [email or web address] Not available 04/10/2024 16:23:25 Reason for Referral [...] neutrophils, absolute count neutr ophil s, absol jessica count Not Available Not Available 04/10/2024 03:52:39 08/12/19 24 08/12/2023 CBC W Auto Diffe renti al panel - Blood lymphocytes, absolute count lymph ocyte s, absol jessica count Not Available Not Available 04/10/2024 03:52:39 08/12/19 24 08/12/2023 CBC W Auto Diffe renti al panel - Blood monocytes, absolute count monoc ytes, absol jessica count Not Available Not Available 04/10/2024 03:52:39 08/12/19 24 08/12/2023 CBC W Auto Diffe renti al panel - Blood eosinophils, absolute count eosin ophil s, absol jessica count Not Available Not Available 04/10/2024 03:52:39 08/12/19 24 08/12/2023 CBC W Auto Diffe renti al panel - Blood basophils, absolute count basop hils, absol jessica count Not Available Not Available 04/10/2024 03:52:39 [...] glucose 84 mg/dL 70-99 Not Available [facility] ([facility]) [address] [place], [address], 10/22/2023 03:37:04 10/21/19 24 10/22/2023 COMP. METAB OLIC PANEL (14) BUN 10 mg/dL 6-24 Not Available [facility] ([facility]) [address] [place], [address], 10/22/2023 03:37:04 10/21/19 24 10/22/2023 COMP. METAB OLIC PANEL (14) creatinine 0.80 mg/dL 0.57-1 .00 Not Available [facility] ([facility]) [address] [place], [address], 10/22/2023 03:37:04 10/21/19 24 10/22/2023 COMP. METAB OLIC PANEL (14) eGFR 90 mL/mi n/1.7 3 >59 Not Available [facility] ([facility]) [address] [facility], [place], [address], 10/22/2023 03:37:04 10/21/19 24 10/22/2023 COMP. METAB OLIC PANEL (14) BUN/creatini ne ratio 13 9-23 Not Available [facility] ([facility]) [address] [facility], [place], [address], 10/22/2023 03:37:04 10/21/19 24 10/22/2023 COMP. METAB OLIC PANEL (14) sodium 139 mmol/ L 134-14 4 Not Available [facility] ([facility]) [address] [facility], [place], [address], 10/22/2023 03:37:04 10/21/19 24 10/22/2023 COMP. METAB OLIC PANEL (14) potassium 3.7 mmol/ L 3.5-5. 2 Not Available [facility] ([facility]) [address] [facility], [place], [address], 10/22/2023 03:37:04 10/21/19 24 10/22/2023 COMP. METAB OLIC PANEL (14) chloride 104 mmol/ L 96-106 Not Available [facility] ([facility]) [address] [facility], [place], [address], 10/22/2023 03:37:04 10/21/19 24 10/22/2023 COMP. METAB OLIC PANEL (14) carbon dioxide, total 22 mmol/ L 20-29 Not Available [facility] ([facility]) [address] [facility], [place], [address], 10/22/2023 03:37:04 10/21/19 24 10/22/2023 COMP. METAB OLIC PANEL (14) calcium 8.7 mg/dL 8.7-10 .2 Not Available [facility] ([facility]) [address] [place], [address], 10/22/2023 03:37:04 10/21/19 24 10/22/2023 COMP. METAB OLIC PANEL (14) protein, total 6.2 g/dL 6.0-8. 5 Not Available [facility] ([facility]) [address] [place], [address], 10/22/2023 03:37:04 10/21/19 24 10/22/2023 COMP. METAB OLIC PANEL (14) albumin 3.8 g/dL 3.9-4. 9 below low normal Not Available [facility] ([facility]) [address], [place], [address], 10/22/2023 03:37:04 10/21/19 24 10/22/2023 COMP. METAB OLIC PANEL (14) globulin, total 2.4 g/dL 1.5-4. 5 Not Available [facility] ([facility]) [address] [place], [address], 10/22/2023 03:37:04 10/21/19 24 10/22/2023 COMP. METAB OLIC PANEL (14) bilirubin, total 0.4 mg/dL 0.0-1. 2 Not Available [facility] ([facility]) [address] [facility] [place], [address], 10/22/2023 03:37:04 10/21/19 24 10/22/2023 COMP. METAB OLIC PANEL (14) alkaline phosphatase 55 IU/L 44-121 Not Available [facility] ([facility]) [address] [place], [address], 10/22/2023 03:37:04 10/21/19 24 10/22/2023 COMP. METAB OLIC PANEL (14) AST (SGOT) 8 IU/L 0-40 Not Available [facility] ([facility]) [address] [place], [address], 10/22/2023 03:37:04 10/21/19 24 10/22/2023 COMP. METAB OLIC PANEL (14) ALT (SGPT) 8 IU/L 0-32 Not Available [facility] ([facility]) [address] [place], [address], 10/22/2023 03:37:04 10/21/19 24 10/22/2023 IRON AND TIBC iron bind.cap.(TI BC) 418 ug/dL 250-45 0 Not Available [facility] ([facility]) [address] [place], [address], 10/22/2023 03:37:04 10/21/19 24 10/22/2023 IRON AND TIBC UIBC 393 ug/dL 131-42 5 Not Available [facility] ([facility]) [address] [place], [address], 10/22/2023 03:37:04 10/21/19 24 10/22/2023 IRON AND TIBC iron 25 ug/dL 27-159 below low normal Not Available [facility] ([facility]) [address] [place], [address], 10/22/2023 03:37:04 10/21/19 24 10/22/2023 IRON AND TIBC iron saturation 6 % 15-55 alert low Not Available [facility] ([facility]) [address] [place], [address], 10/22/2023 03:37:04 10/21/19 24 10/22/2023 TYRA TIN ferritin 8 NG/mL 15-150 below low normal Not Available [facility] ([facility]) [address] [place], [address], 10/22/2023 03:37:05 10/21/19 24 10/21/2023 CBC WITH DIFFE RENTI AL/PL ATELE T WBC 6.3 x10e3 /uL 3.4-10 .8 Not Available [facility] ([facility]) [address] [facility], [place], [address], 10/22/2023 03:37:05 10/21/19 24 10/21/2023 CBC WITH DIFFE RENTI AL/PL ATELE T RBC 4.30 x10e6 /uL 3.77-5 .28 Not Available [facility] ([facility]) [address] [facility], [place], [address], 10/22/2023 03:37:05 10/21/1910/21/2023 CBC WITH DIFFE RENTI AL/PL ATELE T hemoglobin 10.6 g/dL 11.1-1 5.9 below low normal Not Available [facility] ([facility]) [address] [place], [address], 10/22/2023 03:37:05 10/21/19 24 10/21/2023 CBC WITH DIFFE RENTI AL/PL ATELE T hematocrit 36.3 % 34.0-4 6.6 Not Available [facility] ([facility]) [address] [place], [address], 10/22/2023 03:37:05 10/21/19 24 10/21/2023 CBC WITH DIFFE RENTI AL/PL ATELE T MCV 84 fL 79-97 Not Available [facility] ([facility]) [address] [place], [address], 10/22/2023 03:37:05 10/21/19 24 10/21/2023 CBC WITH DIFFE RENTI AL/PL ATELE T MCH 24.7 pg 26.6-3 3.0 below low normal Not Available [facility] ([facility]) [address] [place], [address], 10/22/2023 03:37:05 10/21/19 24 10/21/2023 CBC WITH DIFFE RENTI AL/PL ATELE T MCHC 29.2 g/dL 31.5-3 5.7 below low normal Not Available [facility] ([facility]) [address] [facility], [place], [address], 10/22/2023 03:37:05 10/21/19 24 10/21/2023 CBC WITH DIFFE RENTI AL/PL ATELE T RDW 14.5 % 11.7-1 5.4 Not Available [facility] ([facility]) [address] [facility], [place], [address], 10/22/2023 03:37:05 10/21/19 24 10/21/2023 CBC WITH DIFFE RENTI AL/PL ATELE T platelets 260 x10e3 /uL 150-45 0 Not Available [facility] ([facility]) [address] [facility], [place], [address], 10/22/2023 03:37:05 10/21/19 24 10/21/2023 CBC WITH DIFFE RENTI AL/PL ATELE T neutrophils 46 % notest ab. Not Available [facility] ([facility]) [address] [facility], [place], [address], 10/22/2023 03:37:05 10/21/19 24 10/21/2023 CBC WITH DIFFE RENTI AL/PL ATELE T lymphs 38 % notest ab. Not Available [facility] ([facility]) [address] [facility], [place], [address], 10/22/2023 03:37:05 10/21/19 24 10/21/2023 CBC WITH DIFFE RENTI AL/PL ATELE T monocytes 10 % notest ab. Not Available [facility] ([facility]) [address] [facility], [place], [address], 10/22/2023 03:37:05 10/21/19 24 10/21/2023 CBC WITH DIFFE RENTI AL/PL ATELE T eos 3 % notest ab. Not Available [facility] ([facility]) [address] [facility], [place], [address], 10/22/2023 03:37:05 10/21/19 24 10/21/2023 CBC WITH DIFFE RENTI AL/PL ATELE T basos 2 % notest ab. Not Available [facility] ([facility]) [address] [facility], [place], [address], 10/22/2023 03:37:05 10/21/19 24 10/21/2023 CBC WITH DIFFE RENTI AL/PL ATELE T neutrophils (absolute) 3.0 x10e3 /uL 1.4-7. 0 Not Available [facility] ([facility]) [address] [facility], [place], [address], 10/22/2023 03:37:05 10/21/19 24 10/21/2023 CBC WITH DIFFE RENTI AL/PL ATELE T lymphs (absolute) 2.4 x10e3 /uL 0.7-3. 1 Not Available [facility] ([facility]) [address] [facility], [place], [address], 10/22/2023 03:37:05 10/21/19 24 10/21/2023 CBC WITH DIFFE RENTI AL/PL ATELE T monocytes(ab solute) 0.7 x10e3 /uL 0.1-0. 9 Not Available [facility] ([facility]) [address] [place], [address], 10/22/2023 03:37:05 10/21/19 24 10/21/2023 CBC WITH DIFFE RENTI AL/PL ATELE T eos (absolute) 0.2 x10e3 /uL 0.0-0. 4 Not Available [facility] ([facility]) [address] [facility], [place], [address], 10/22/2023 03:37:05 10/21/19 24 10/21/2023 CBC WITH DIFFE RENTI AL/PL ATELE T baso (absolute) 0.1 x10e3 /uL 0.0-0. 2 Not Available [facility] ([facility]) [address] [facility], [place], [address], 10/22/2023 03:37:05 10/21/19 24 10/21/2023 CBC WITH DIFFE RENTI AL/PL ATELE T immature granulocytes 1 % notest ab. Not Available [facility] ([facility]) [address] [facility], [place], [address], 10/22/2023 03:37:05 10/21/19 24 10/21/2023 CBC WITH DIFFE RENTI AL/PL ATELE T immature grans (abs) 0.0 x10e3 /uL 0.0-0. 1 Not Available [facility] ([facility]) [address] [facility], [place], [address], 10/22/2023 03:37:05 09/09/19 24 09/09/2023 US, echo ardio gram No observ ation record ed. [facility] [address], [place], [address], 09/28/2023 11:55:41 11/13/19 24 11/13/2023 MRI, hip, w/o contr ast No observ ation record ed. [facility] [address], [place], [address], 11/18/2023 12:59:59 11/26/1911/26/2023 MAMMO , scree martha, digit al, bilat eral No observ ation record ed. [email or web address] [facility] [address], [place], [address], 12/01/2023 23:17:55 12/22/19 24 12/22/2023 MAMMO , diagn ostic , bilat eral No observ ation record ed. [address], [place], [address], 12/24/2023 13:10:36 05/02/19 25 09/24/2021 colon oscop y scree martha (PROC ) No observ ation record ed. [email or web address] Not Available 2024 17:16:08 05/02/19 25 05/01/2024 US, echoc ardio gram No observ ation record ed. [address], [place], [address], 05/03/2024 12:40:50 Result Notes None recorded. Problems Name Problem SNOMED Code Status Onset Date Resolution Date Notes Provider Name and Address Organization Details Recorded Time Heart murmur 28737963 Active 2023 Hanny Osorio MA null, [place] - [facility] 4 17:10:12 Anemia 261482499 Active 2023 Hanny Osorio MA null, MD - [facility] 4 17:10:13 Osteoarthritis 394456776 Active 2023 Sameer Mcelroy MD Attn: Alaina wynn,[address] [facility], [place], [address], [facility] - [facility] 4 14:50:21 Aortic valve stenosis 42342917 Active 2023 Sameer Mcelroy MD Attn: Alaina wynn,[address] [place], [address], [facility] - [facility] 4 11:04:40 Problem Notes None recorded. Procedures Surgical History Date Name Laterality Status Provider Name and Address Organization Details Recorded Time 8 Gastric Bypass completed Nasima Cullen MA MD - [facility] 08/09/2023 16:07:11 6 tonsillectomy completed Nasima Cullen MA MD - [facility] 08/09/2023 16:07:22 Imaging Results Imaging Date Name Status LastModified by Organization Details LastModified Time 09/09/2023 US, echocardiogram completed [address] [address], [place], [address], 09/28/2023 11:55:41 11/13/2023 MRI, hip, w/o contrast completed [facility] [address], [place], [address], 11/18/2023 12:59:59 11/26/2023 MAMMO, screening, digital, bilateral completed [email or web address] [facility] [address] [place], [address], 12/01/2023 23:17:55 12/22/2023 MAMMO, diagnostic, bilateral completed [address], [place], [address], 12/24/2023 13:10:36 09/24/2021 colonoscopy screening (PROC) completed [facility] Information not available 05/02/2024 17:16:08 05/01/2024 US, echocardiogram completed [address], [place], [address], 05/03/2024 12:40:50 Procedure Notes None recorded. Medical Equipment None Reported. Allergies Allergen ID Allergen Name Allergen Category Reaction Reaction Severity Criticality Documentation Date Start Date Code Code System Note Provider Name and Address Organization Details Recorded Time 398559 ibuprofen medicatio n Not available Not available Not available 08/09/2023 5640 RxNorm Not Available Not Available Not Available 570656 Non-stero idal anti-infl ammatory agent (product) medicatio n Not available Not available Not available 04/10/2024 04449 005 SNOMED Not Available Not Available Not [...] Address Organization Details Last Updated DateTime 4 720285. 98 g 41.5 kg/m2 170.18 cm 90 /min 98 % 98 % 118 mm[Hg] 76 mm[Hg] Nasima Cullen MA [facility] 4 16:11:33 Date Recorded Body height Body mass index (BMI) Body weight Heart rate Oxygen saturation Oxygen saturation in Arterial blood by Pulse oximetry Systolic blood pressure Diastolic blood pressure Provider Name and Address Organization Details Last Updated DateTime 4 170.18 cm 41.3 kg/m2 106701. 67 g 74 /min 98 % 98 % 132 mm[Hg] 68 mm[Hg] Myrtle King MA [facility] 4 14:15:12 Date Recorded Body height Body mass index (BMI) Body weight Heart rate Oxygen saturation Oxygen saturation in Arterial blood by Pulse oximetry Systolic blood pressure Diastolic blood pressure Provider Name and Address Organization Details Last Updated DateTime 4 170.18 cm 39.5 kg/m2 632413. 28 g 89 /min 98 % 98 % 114 mm[Hg] 78 mm[Hg] Krissy Figueroa MA [facility] 4 14:31:13 Date Recorded Body height Body mass index (BMI) Body weight Heart rate Oxygen saturation Oxygen saturation in Arterial blood by Pulse oximetry Systolic blood pressure Diastolic blood pressure Provider Name and Address Organization Details Last Updated DateTime 5 170.18 cm 36.1 kg/m2 660318. 04 g 85 /min 97 % 97 % 118 mm[Hg] 82 mm[Hg] Krissy Figueroa MA [facility] 5 14:20:17 Social History Question Answer Notes LastModified by Organizat ion Details LastModified Time Tobacco Smoking Status Never Smoker Nasima Cullen MA [facility], [place] - [facility] 08/09/2023 16:05:16 Do You Have An Advance [...] Anxious, Or Unable To Sleep At Night)? [id number] Information not available 08/09/2023 Do You Use [...] available 07/23 16:04:48 Notes:no family history steiner ge, me/rma Medical History Condition Response Coronary Artery Disease N Other N High Blood Pressure N Atrial Fibrillation N Thyroid Problems N Kidney or Bladder Problems N Blood Clots N COPD N Depression N GI Problems Y Have you had a mammogram in the last yea r? Y Skin Problems N Anemia Y Heart Attack (SC) N Anxiety Disorder N Diabetes N Muscle, Joint, or Bone Problems N Seizures/Epilepsy N Have you had a colonoscopy in the last 1 0 years? Y Acid Reflux (GERD) N Cancer N Stroke N Asthma N Allergies N High Cholesterol N Hepatitis N Liver Disease N Headaches N Heart Failure N Osteoporosis Y Gynecological History Statement/Question Response Flow Light Date of LMP 08/23/2023 Menses Monthly Y Duration of Flow (days) 4 Age at Menarche 10 LMP Approximate Obstetrics History GPAL:G 0 P 0 0 0 0 Immunizations Vaccine Type Date Status Note Provider Nam e and Address Organization Details Recorded Time COVID-19, mRNA, LNP-S, PF, 30 mcg/0.3 mL dose 1 completed L[place], [place] - [facility] 04/10/2024 14:15:00 COVID-19, mRNA, LNP-S, PF, 30 mcg/0.3 mL dose 1 [place] [facility] 04/10/2024 14:15:00 COVID-19, mRNA, LNP-S, PF, 30 mcg/0.3 mL dose 1 [place] [facility] 04/10/2024 14:15:00 COVID-19, mRNA, LNP-S, PF, yessy-sucrose, 30 mcg/0.3 mL 3 [place] [facility] 04/10/2024 14:15:00 influenza, unspecified formulation 7 completed [place] [facility] 04/10/2024 14:15:00 Td (adult), 2 Lf tetanus toxoid, preservative free, adsorbed 1 [place] [facility] 04/10/2024 14:15:00 Hep B, adult 0 [place] [facility] 04/10/2024 14:15:00 Hep B, adult 0 [place] [facility] 04/10/2024 14:15:00 Hep B, adult 0 [place] [facility] 04/10/2024 14:15:00 Hep A, adult 0 [place] [facility] 04/10/2024 14:15:00 Hep A, adult 0 completed Krissy FigueroaLINDY null, [place] - [facility] 04/10/2024 14:15:00 Influenza, split virus, quadrivalent, PF 0 completed Krissy Figueroa LINDY null, [place] - [facility] 04/10/2024 14:15:00 Influenza, split virus, quadrivalent, PF 1 completed Krissy Figueroa LINDY null, [place] - [facility] 04/10/2024 14:15:00 Influenza, split virus, quadrivalent, PF 3 completed Krissy Figueroa LINDY null, [place] - [facility] 04/10/2024 14:15:00 Influenza, split virus, quadrivalent, PF 6 completed Krissy Figueroa LINDY null, [place] - [facility] 04/10/2024 14:15:00 Influenza, split virus, trivalent, PF 4 completed Sameer Mcelroy MD Attn: Accounting,[address] [place], [address], [facility] - [facility] 12/26/2023 11:00:19 Past Encounters Encounter ID Performer Location Encounter Start Date Encounter Closed Date Diagnosis/Indication Diagnosis SNOMED-CT Code Diagnosis ICD10 Code Diagnosis Note [id number] Sameer Mcelroy MD [facility] [place] [address] [place] [address] 08/09/2023 15:10:43 08/09/2023 17:18:22 Anemia 008936314 D64.9 Heart murmur 20654037 R0 1.1 Osteoarthritis 415074403 M19.90 [id number] Sameer Mcelroy MD [facility] [place] [address] [place] [address] 10/14/2023 14:00:19 10/14/2023 15:25:22 Morbid obesity 686635044 E66.01 Anemia 835510668 D64.9 Pain in ri ght lower limb 636099589 M79.534 [id number] Sameer Mcelroy MD [facility] [place] [address] [place] [address] 12/13/2023 14:19:17 12/13/2023 15:00:39 Obesity 554502988 E66.9 Administra tion of influenza vaccine 53255234 Z23 Osteoarthritis 568898258 M19.90 Anemia 346181276 D64.9 Aortic valve stenosis 60 793008 I35.0 [id number] Sameer Mcelroy MD [facility] [place] [address] [place] [address] 04/10/2024 14:04:33 04/10/2024 15:08:48 Body mass index 30+ - obesity 636246377 Z68.36 Obesity 546469736 E66.9 Heart murmur 56352822 R0 1.1 Anemia 687570909 D64.9 Osteoarthritis 654134699 M19.90 Aortic valve stenosis 60 149363 I35.0 Health Concerns Section Related Observation LastModified by Organization Detai ls LastModified Time None Recorded Concern Status LastModified by Organization Details LastModified Time None Recorded Advance Directives Directive N: Payers Encounter Date Sequence Insurance Name Policy Number Policy Donohue Covered Member ID Donohue Member ID Guarantor Name 08/09/2023 1 [facility] [id number] Jessie Nguyen [id number] Jessie Nguyen 10/14/2023 1 [facility] [id number] Jessie Nguyen [id number] Jessie Nguyen 12/13/2023 1 [place] [id number] Jessie Nguyen [id number] Jessie Nguyen 04/10/2024 1 [place] [id number] Jessie Nguyen [id number] Jessie Nguyen Notes Date Note Type Note [...] struggled with weight Sameer Mcelroy MD Attn: Accounting,[address] [place], [address], [facility] 08/11/2023 14:50:53 10/14/2023 text/html I am times she will feel like the distal right leg we will have little bit of heat and cold intolerance but rarely does not hurt it has been going on for a couple of weeks. Anemia there has not been any fatigue no shortness a breath. Obesity she has had bariatric procedure before Sameer Mcelroy MD Attn: Accounting[address] [facility], [place], [address], [facility] 10/23/2023 20:04:57 12/13/2023 text/html GERD has been stable anemia she has no fatigue at this time there has no craving of cold liquids not short of breath [id number] aortic stenosis no syncope no heart failure symptoms no chest pain Sameer Mcelroy MD Attn: Accounting, [address] [facility], [place], [address], [facility] 12/26/2023 11:08:08 04/10/2024 text/html still [...] tired at times Sameer Mcelroy MD Attn: Accounting, [address] [facility], [place], [address], [place] [facility] 04/24/2024 20:35:27 OBGyn Episode No OBEpisode recorded.
--- OUTSIDE RECORDS SUMMARY | 2024-05-11 11:46 | XMS_ITS | Clinical Summary ---
Author Organization [facility] Liliam murray Liliana Address [address] [facility] [address] Care Team Providers Care Sales Compensation Analyst Name Role Phone Unavailable Primary Care Provider [...] Encounters Date Type Department Care Team Description 05/10/2024 External Device Data [facility] ABSTRACTION Provider, Abstract 05/02/2024 External Device Data [facility] ABSTRACTION Provider, Abstract 05/02/2024 External Device Data [facility] ABSTRACTION Provider, Abstract 04/29/2024 External Device Data [facility] ABSTRACTION Provider, Abstract 04/28/2024 External Device Data [facility] ABSTRACTION Provider, Abstract 04/25/2024 External Device Data [facility] ABSTRACTION Provider, Abstract 04/11/2024 External Device Data [facility] ABSTRACTION Provider, Abstract 04/04/2024 External Device Data [facility] ABSTRACTION Provider, Abstract 03/16/2024 4:30 PM CASINO CASHIER MANAGER Telephone Check Up [facility] - Subhash [address] [place] [address] Salomón Qiu MD Chronic anemia (Primary Dx) 03/16/2024 Orders Only [facility] - [address]hash [address] [place] [address] Salomón Qiu MD 03/16/2024 External Device Data [facility] ABSTRACTION Provider, Abstract 03/15/2024 External Device Data [facility] ABSTRACTION Provider, Abstract 03/14/2024 External Device Data ST[facility] ABSTRACTION Provider, Abstract 03/14/2024 Orders Only [facility] - Subhash [address] [place] [address] Salomón Qiu MD 03/07/2024 External Device Data STL ABSTRACTION Provider, Abstract 03/01/2024 Orders Only [facility] - Subhash [address] [place] [address] Salomón Qiu MD from Last 3 Months [...] Comments Blood Pressure 125/77 12/28/2023 1:34 PM CASINO CASHIER MANAGER Pulse 61 12/28/2023 1:34 PM CASINO CASHIER MANAGER Temperature 36.3 C (97.3 F) 12/28/2023 1:34 PM CASINO CASHIER MANAGER Respiratory Rate 16 12/28/2023 1:34 PM CASINO CASHIER MANAGER Oxygen Saturation 99% 12/28/2023 1:34 PM CASINO CASHIER MANAGER Inhaled Oxygen Concentration - - Weight 110.7 kg (244 lb) 12/28/2023 1:34 PM CASINO CASHIER MANAGER Height 167.6 cm (5' 6 ) 12/28/2023 1:34 PM CASINO CASHIER MANAGER Body Mass Index 39.38 12/28/2023 1:34 PM CASINO CASHIER MANAGER Plan of Treatment Upcoming Encounters Date Type Department Care Team (Late st Contact Info) Description 05/18/2024 2:00 PM CDT Office Visit [facility] - Subhash [address] [place] [address] Salomón Qiu MD [address] [facility] [place] [address] Health Maintenance Due Date Last Done Comments Pre-Diabetes and Diabetes Screening 1973 DTAP/TDAP/TD VACCINES (1 - Tdap) 1992 HEPATITIS B VACCINES (1 of 3 - 19+ 3-dose series) 1992 PAP SMEAR 1994 CERVICAL CANCER SCREENING 04/28/2003 HPV/Cotest 04/28/2003 PAP SMEAR 04/28/2003 BREAST CANCER SCREENING 2013 COLORECTAL SCREENING 2018 Colorectal Cancer Screening 2018 FIT-DNA Q 3 years 2018 FIT/FOBT Q 1 year 2018 Flex Sig/CT Colonography Q 5 years 2018 ZOSTER VACCINE (1 of 2) 04/28/2023 Preventative Visit- Commercial 02/23/2024 INFLUENZA VACCINE Completed 12/13/2023, 01/21/2016 Procedures Procedure Name Priority Date/Time Associated Diagnosis Comments IRON LEVEL Routine 03/13/2024 4:01 PM CASINO CASHIER MANAGER COMPREHENSIVE METABOLIC PANEL Routine 03/13/2024 2:15 PM CASINO CASHIER MANAGER CBC WITH DIFFERENTIAL Routine 02/22/2024 4:50 PM CASINO CASHIER MANAGER COMPREHENSIVE METABOLIC PANEL Routine 02/22/2024 3:59 PM CASINO CASHIER MANAGER COMPREHENSIVE METABOLIC PANEL Routine 02/22/2024 3:53 PM CASINO CASHIER MANAGER from Last 3 Months Results * IRON LEVEL (03/13/2024 4:01 PM CASINO CASHIER MANAGER) Blood us Salomón Qiu MD CHEMISTRY ORDERABLES Final Resu lt * COMPREHENSIVE METABOLIC PANEL (03/13/2024 2:15 PM CASINO CASHIER MANAGER) Only the most recent of3 resultswithin the time period is included. Blood Salomón Qiu MD CHEMISTRY ORDERABLES Final Resu lt * CBC WITH DIFFERENTIAL (02/22/2024 4:50 PM CASINO CASHIER MANAGER) Blood Salomón Qiu MD HEMATOLOGY ORDERABLES Final Res ult from Last 3 Months Insurance BLUE ACCESS/TRUE BLUE PPO
--- OUTSIDE RECORDS SUMMARY | 2024-05-11 11:46 | XMS_ITS | Data Portability ---
Author Organization [place] - [facility] [employer], Main Office Address [address] [place] [address] Care Team Providers Care Vision Care Associate Name Role Phone SAMEER SAENZ Primary Care Provider [phone] SAMEER SAENZ Referring Provider Assessment Encounter Date [...] and lateral joint lines in both knees. Cxer-ch-qhoswgem pain patellofemoral grind bilaterally. ChloraPrep used on [...] patient more than half of this in [id number] conversation tere Not available 04/29/2022 15:53:53 07/29/2022 [...] DO Not Attach Compendium, Do Not Delete/merge, [id number] 4 14:24:01 injection/a spiration joint/bursa (PROC) 2022 023 [email or web address] In-Office Order, Internal Use Only DO Not Attach Compendium DO Not Attach Compendium, Do Not Delete/merge, [id number] 3 13:56:43 injection/a spiration joint/bursa (PROC) - in office procedure, administere d by provider 2022 023 [email or web address] In-Office Order, Internal Use Only DO Not Attach Compendium DO Not Attach Compendium, Do Not Delete/merge, [id number] 3 14:07:18 injection/a spiration joint/bursa (PROC) - in office procedure, administere d by provider 2022 023 [email or web address] In-Office Order, Internal Use Only DO Not Attach Compendium DO Not Attach Compendium, Do Not Delete/merge, [id number] 3 15:12:08 injection/a spiration joint/bursa (PROC) - in office procedure, administere d by provider 2022 023 [email or web address] Not available 3 15:12:38 Surgeries None recorded. Imaging XR, knee 2023 024 [email or web address] [facility] [place], [address], [place], [address], 4 15:13:55 XR, knee 2022 023 [email or web address] [facility] [place], [address], [place], [address], 3 16:04:37 Medication Orders Kenalog 10 mg/mL suspension for injection 2023 024 [id number], [address] [place], [address], 4 14:28:43 ropivacaine (PF) 5 mg/mL (0.5 %) injection solution 2023 024 [id number], [address] [place], [address], 4 14:28:43 bupivacaine HCl 0.5 % (5 mg/mL) injection solution 2022 023 [email or web address] [id number], [address] [place], [address], 3 14:48:47 Kenalog 10 mg/mL suspension for injection 2022 023 [email or web address] [id number], [address] [place], [address], 3 14:48:47 Kenalog 10 mg/mL suspension for injection [address] #[id number], [address], [place], [address], 3 15:47:18 ropivacaine (PF) 5 mg/mL (0.5 %) injection solution [address] #[id number], [address], [place], [address], 3 15:47:18 Kenalog 10 mg/mL suspension for injection [address] #[id number], [address] [place], [address], 3 16:20:00 ropivacaine (PF) 5 mg/mL (0.5 %) injection solution [address]/[facility] #[id number], [address], [place], [address], 3 16:20:00 Kenalog 10 mg/mL suspension for injection 2022 023 [id number] 15 [facility] #[id number], [address] [place], [address], 3 21:23:57 ropivacaine (PF) 5 mg/mL (0.5 %) injection solution 2022 023 [id number] 15 [facility]acy #[id number], [address] [place], [address], 3 21:23:57 Patient TargetsNo targets recorded. Patient InstructionsNo instructions recorded. Reason for Referral None Reported. Results Created Date Observation Date Name Description Value Unit Range Abnormal Flag Note LastModifiedBy Organization Detail LastModifiedTime 05/19/19 23 05/18/2022 CBC/C OMPLE TE BLD COUNT W/DIF F white blood cells 5.9 x10'3 /uL 4.2-10 .8 Not Available [facility] (Lab) [address] [place], [address], 05/18/2022 14:15:23 05/19/19 23 05/18/2022 CBC/C OMPLE TE BLD COUNT W/DIF F red blood cells 4.49 x10'6 /uL 3.80-5 .20 Not Available [facility] (Lab) [address] [place], [address], 05/18/2022 14:15:23 05/19/19 23 05/18/2022 CBC/C OMPLE TE BLD COUNT W/DIF F hemoglobin 12.6 g/dL 12.0-1 5.6 Not Available [facility] (Lab) [address] [place], [address], 05/18/2022 14:15:23 05/19/19 23 05/18/2022 CBC/C OMPLE TE BLD COUNT W/DIF F hematocrit 41.0 % 35.7-4 5.7 Not Available [facility] (Lab) [address] [place], [address], 05/18/2022 14:15:23 05/19/19 23 05/18/2022 CBC/C OMPLE TE BLD COUNT W/DIF F mean red cell volume 91.3 fL 82.0-9 9.0 Not Available [facility] (Lab) [address] [place], [address], 05/18/2022 14:15:23 05/19/19 23 05/18/2022 CBC/C OMPLE TE BLD COUNT W/DIF F mean red cell hemoglobin 28.1 pg 27.0-3 3.0 Not Available [facility] (Lab) [address] [place], [address], 05/18/2022 14:15:23 05/19/19 23 05/18/2022 CBC/C OMPLE TE BLD COUNT W/DIF F mean RBC HGB concentratio n 30.7 g/dL 31.0-3 6.0 low Not Available [facility] (Lab) [address] [place], [address], 05/18/2022 14:15:23 05/19/19 23 05/18/2022 CBC/C OMPLE TE BLD COUNT W/DIF F red cell distribution width 15.4 % 11.8-1 5.5 Not Available [facility] (Lab) [address] [place], [address], 05/18/2022 14:15:23 05/19/19 23 05/18/2022 CBC/C OMPLE TE BLD COUNT W/DIF F platelets 216 x10'3 /uL 150-40 0 Not Available [facility] (Lab) [address] [place], [address], 05/18/2022 14:15:23 05/19/19 23 05/18/2022 CBC/C OMPLE TE BLD COUNT W/DIF F mean platelet volume 11.9 fL 9.0-12 .4 Not Available [facility] (Lab) [address] [place], [address], 05/18/2022 14:15:23 05/19/19 23 05/18/2022 CBC/C OMPLE TE BLD COUNT W/DIF F neutrophils 52.3 % 39.0-7 2.0 Not Available [facility] (Lab) [address] [place], [address], 05/18/2022 14:15:23 05/19/19 23 05/18/2022 CBC/C OMPLE TE BLD COUNT W/DIF F lymphocytes 34.2 % 16.0-4 7.0 Not Available [facility] (Lab) [address] [place], [address], 05/18/2022 14:15:23 05/19/19 23 05/18/2022 CBC/C OMPLE TE BLD COUNT W/DIF F monocytes 8.2 % 5.0-12 .0 Not Available [facility] (Lab) [address] [place], [address], 05/18/2022 14:15:23 05/19/19 23 05/18/2022 CBC/C OMPLE TE BLD COUNT W/DIF F eosinophils 3.9 % 1.0-7. 0 Not Available [facility] (Lab) [address] [place], [address], 05/18/2022 14:15:23 05/19/19 23 05/18/2022 CBC/C OMPLE TE BLD COUNT W/DIF F basophils 1.2 % 0.0-2. 0 Not Available [facility] (Lab) [address] [place], [address], 05/18/2022 14:15:23 05/19/19 23 05/18/2022 CBC/C OMPLE TE BLD COUNT W/DIF F immature granulocytes 0.2 % 0.00-0 .50 Not Available [facility] (Lab) [address] [place], [address], 05/18/2022 14:15:23 05/19/19 23 05/18/2022 CBC/C OMPLE TE BLD COUNT W/DIF F neutrophils, absolute count 3.07 x10'3 /uL 1.5-8. 0 Not Available [facility] (Lab) [address] [place], [address], 05/18/2022 14:15:23 05/19/19 23 05/18/2022 CBC/C OMPLE TE BLD COUNT W/DIF F lymphocytes, absolute count 2.01 x10'3 /uL 1.07-3 .43 Not Available [facility] (Lab) [address] [place], [address], 05/18/2022 14:15:23 05/19/19 23 05/18/2022 CBC/C OMPLE TE BLD COUNT W/DIF F monocytes, absolute count 0.48 x10'3 /uL 0.29-0 .99 Not Available [facility] (Lab) [address] [place], [address], 05/18/2022 14:15:23 05/19/19 23 05/18/2022 CBC/C OMPLE TE BLD COUNT W/DIF F eosinophils, absolute count 0.23 x10'3 /uL 0.02-0 .53 Not Available [facility] (Lab) [address] [place], [address], 05/18/2022 14:15:23 05/19/19 23 05/18/2022 CBC/C OMPLE TE BLD COUNT W/DIF F basophils, absolute count 0.07 x10'3 /uL 0.01-0 .08 Not Available [facility] (Lab) [address] [place], [address], 05/18/2022 14:15:23 05/19/19 23 05/18/2022 CBC/C OMPLE TE BLD COUNT W/DIF F immature granulocytes ,absolute 0.01 x10'3 /uL 0.00-0 .05 Not Available [facility] (Lab) [address] [place], [address], 05/18/2022 14:15:23 05/19/19 23 05/18/2022 CBC/C OMPLE TE BLD COUNT W/DIF F nucleated red blood cells 0.0 % -0 Not Available [facility] (Lab) [address] [place], [address], 05/18/2022 14:15:23 05/19/19 23 05/18/2022 CBC/C OMPLE TE BLD COUNT W/DIF F NRBC# 0.00 x10'3 /uL Not Available [facility] (Lab) [address] [place], [address], 05/18/2022 14:15:23 05/19/19 23 05/18/2022 IRON SERUM /FE iron 54 mcg/d L 42-175 Not Available [facility] (Lab) [address] [place], [address], 05/18/2022 14:57:48 05/19/19 23 05/18/2022 HEATHER TIN ferritin 7 NG/mL 6.24-1 37 Not Available [facility] (Lab) [address] [place], [address], 05/18/2022 15:09:27 08/12/19 24 08/12/2023 CBC/C OMPLE TE BLD COUNT W/DIF F white blood cells 7.6 x10'3 /uL 4.2-10 .8 Not Available [facility] (Lab) [address] [place], [address], 08/12/2023 10:49:25 08/12/19 24 08/12/2023 CBC/C OMPLE TE BLD COUNT W/DIF F red blood cells 4.13 x10'6 /uL 3.80-5 .20 Not Available [facility] (Lab) [address] [place], [address], 08/12/2023 10:49:25 08/12/19 24 08/12/2023 CBC/C OMPLE TE BLD COUNT W/DIF F hemoglobin 10.7 g/dL 12.0-1 5.6 low Not Available [facility] (Lab) [address] [place], [address], 08/12/2023 10:49:25 08/12/19 24 08/12/2023 CBC/C OMPLE TE BLD COUNT W/DIF F hematocrit 34.9 % 35.7-4 5.7 low Not Available [facility] (Lab) [address] [place], [address], 08/12/2023 10:49:25 08/12/19 24 08/12/2023 CBC/C OMPLE TE BLD COUNT W/DIF F mean red cell volume 84.5 fL 82.0-9 9.0 Not Available [facility] (Lab) [address] [place], [address], 08/12/2023 10:49:25 08/12/19 24 08/12/2023 CBC/C OMPLE TE BLD COUNT W/DIF F mean red cell hemoglobin 25.9 pg 27.0-3 3.0 low Not Available [facility] (Lab) [address] [place], [address], 08/12/2023 10:49:25 08/12/19 24 08/12/2023 CBC/C OMPLE TE BLD COUNT W/DIF F mean RBC HGB concentratio n 30.7 g/dL 31.0-3 6.0 low Not Available [facility] (Lab) [address] [place], [address], 08/12/2023 10:49:25 08/12/19 24 08/12/2023 CBC/C OMPLE TE BLD COUNT W/DIF F red cell distribution width 16.4 % 11.8-1 5.5 high Not Available [facility] (Lab) [address] [place], [address], 08/12/2023 10:49:25 08/12/19 24 08/12/2023 CBC/C OMPLE TE BLD COUNT W/DIF F platelets 255 x10'3 /uL 150-40 0 Not Available [facility] (Lab) [address] [place], [address], 08/12/2023 10:49:25 08/12/19 24 08/12/2023 CBC/C OMPLE TE BLD COUNT W/DIF F mean platelet volume 12.1 fL 9.0-12 .4 Not Available [facility] (Lab) [address] [place], [address], 08/12/2023 10:49:25 08/12/19 24 08/12/2023 CBC/C OMPLE TE BLD COUNT W/DIF F neutrophils 61.0 % 39.0-7 2.0 Not Available [facility] (Lab) [address] [place], [address], 08/12/2023 10:49:25 08/12/19 24 08/12/2023 CBC/C OMPLE TE BLD COUNT W/DIF F lymphocytes 28.6 % 16.0-4 7.0 Not Available [facility] (Lab) [address] [place], [address], 08/12/2023 10:49:25 08/12/19 24 08/12/2023 CBC/C OMPLE TE BLD COUNT W/DIF F monocytes 7.3 % 5.0-12 .0 Not Available [facility] (Lab) [address] [place], [address], 08/12/2023 10:49:25 08/12/19 24 08/12/2023 CBC/C OMPLE TE BLD COUNT W/DIF F eosinophils 1.8 % 1.0-7. 0 Not Available [facility] (Lab) [address] [place], [address], 08/12/2023 10:49:25 08/12/19 24 08/12/2023 CBC/C OMPLE TE BLD COUNT W/DIF F basophils 0.9 % 0.0-2. 0 Not Available [facility] (Lab) [address] [place], [address], 08/12/2023 10:49:25 08/12/19 24 08/12/2023 CBC/C OMPLE TE BLD COUNT W/DIF F immature granulocytes 0.4 % 0.00-0 .50 Not Available [facility] (Lab) [address] [place], [address], 08/12/2023 10:49:25 08/12/19 24 08/12/2023 CBC/C OMPLE TE BLD COUNT W/DIF F neutrophils, absolute count 4.62 x10'3 /uL 1.5-8. 0 Not Available [facility] (Lab) [address] [place], [address], 08/12/2023 10:49:25 08/12/19 24 08/12/2023 CBC/C OMPLE TE BLD COUNT W/DIF F lymphocytes, absolute count 2.17 x10'3 /uL 1.07-3 .43 Not Available [facility] (Lab) [address] [place], [address], 08/12/2023 10:49:25 08/12/19 24 08/12/2023 CBC/C OMPLE TE BLD COUNT W/DIF F monocytes, absolute count 0.55 x10'3 /uL 0.29-0 .99 Not Available [facility] (Lab) [address] [place], [address], 08/12/2023 10:49:25 08/12/19 24 08/12/2023 CBC/C OMPLE TE BLD COUNT W/DIF F eosinophils, absolute count 0.14 x10'3 /uL 0.02-0 .53 Not Available [facility] (Lab) [address] [place], [address], 08/12/2023 10:49:25 08/12/19 24 08/12/2023 CBC/C OMPLE TE BLD COUNT W/DIF F basophils, absolute count 0.07 x10'3 /uL 0.01-0 .08 Not Available [facility] (Lab) [address] [place], [address], 08/12/2023 10:49:25 08/12/19 24 08/12/2023 CBC/C OMPLE TE BLD COUNT W/DIF F immature granulocytes ,absolute 0.03 x10'3 /uL 0.00-0 .05 Not Available [facility] (Lab) [address] [place], [address], 08/12/2023 10:49:25 08/12/19 24 08/12/2023 CBC/C OMPLE TE BLD COUNT W/DIF F nucleated red blood cells 0.0 % -0 Not Available [facility] (Lab) [address] [place], [address], 08/12/2023 10:49:25 08/12/19 24 08/12/2023 CBC/C OMPLE TE BLD COUNT W/DIF F NRBC# 0.00 x10'3 /uL Not Available [facility] (Lab) [address] [place], [address], 08/12/2023 10:49:25 08/12/19 24 08/12/2023 IRON/ TIBC PANEL total iron binding capacity 421 mcg/d L 265-47 5 Not Available [facility] (Lab) [address] [place], [address], 08/12/2023 11:42:34 08/12/19 24 08/12/2023 IRON/ TIBC PANEL % transferrin saturation 10 % 20-55 low Not Available [facility] (Lab) [address] [place], [address], 08/12/2023 11:42:34 08/12/19 24 08/12/2023 IRON/ TIBC PANEL unsaturated iron bind capacity 379 mcg/d L 126-38 2 Not Available [facility] (Lab) [address] [place], [address], 08/12/2023 11:42:34 08/12/19 24 08/12/2023 IRON/ TIBC PANEL iron 42 mcg/d L 42-175 Not Available [facility] (Lab) [address] [place], [address], 08/12/2023 11:42:34 08/12/19 24 08/12/2023 COMPR EHENS STAR METAB OLIC PANEL sodium 135 mmol/ L 137-14 5 low Not Available [facility] (Lab) [address] [place], [address], 08/12/2023 11:42:19 08/12/19 24 08/12/2023 COMPR EHENS STAR METAB OLIC PANEL potassium 4.3 mmol/ L 3.5-5. 1 Not Available [facility] (Lab) [address] [place], [address], 08/12/2023 11:42:19 08/12/19 24 08/12/2023 COMPR EHENS STAR METAB OLIC PANEL chloride 108 mmol/ L 98-107 high Not Available [facility] (Lab) [address] [place], [address], 08/12/2023 11:42:19 08/12/19 24 08/12/2023 COMPR EHENS STAR METAB OLIC PANEL carbon dioxide 27 mmol/ L 22-30 Not Available [facility] (Lab) [address] [place], [address], 08/12/2023 11:42:19 08/12/19 24 08/12/2023 COMPR EHENS STAR METAB OLIC PANEL anion gap 4.3 mmol/ L 14-22 low Not Available [facility] (Lab) [address] [place], [address], 08/12/2023 11:42:19 08/12/19 24 08/12/2023 COMPR EHENS STAR METAB OLIC PANEL glucose 84 mg/dL 70-99 Not Available [facility] (Lab) [address] [place], [address], 08/12/2023 11:42:19 08/12/19 24 08/12/2023 COMPR EHENS STAR METAB OLIC PANEL BUN 8 mg/dL 8-19 Not Available [facility] (Lab[facility] [address] [facility] [place] [place], [address], 08/12/2023 11:42:19 08/12/19 24 08/12/2023 COMPR EHENS STAR METAB OLIC PANEL creatinine 0.66 mg/dL 0.66-1 .25 Not Available [facility] (Lab) [address] [place], [address], 08/12/2023 11:42:19 08/12/19 24 08/12/2023 COMPR EHENS STAR METAB OLIC PANEL GFR >60 Refer ence Range : [place] ge GFR Healt hy Adult : >60 [...] or ethni c subgr oups, such as [facility] nics. Outsi de the valid ated yamile [...] calcu lator is avail able on the [facility] websi te: https ://taco cruz.o rg/pr ofess ional s/kdo qi/gf r_cal culat or Not Available [facility] (Lab) [address] [place], [address], 08/12/2023 11:42:19 08/12/19 24 08/12/2023 COMPR EHENS STAR METAB OLIC PANEL alkaline phosphatase 49 U/L 38-126 Not Available [facility] (Lab) [address] [place], [address], 08/12/2023 11:42:19 08/12/19 24 08/12/2023 COMPR EHENS STAR METAB OLIC PANEL alanine aminotransfe rase 12 U/L 0-35 Not Available [facility] (Lab) [address] [place], [address], 08/12/2023 11:42:19 08/12/19 24 08/12/2023 COMPR EHENS STAR METAB OLIC PANEL aspartate aminotransfe rase 18 U/L 15-37 Not Available [facility] (Lab) [address] [place], [address], 08/12/2023 11:42:19 08/12/19 24 08/12/2023 COMPR EHENS STAR METAB OLIC PANEL bilirubin, total 0.50 mg/dL 0.20-1 .30 Not Available [facility] (Lab) [address] [place], [address], 08/12/2023 11:42:19 08/12/19 24 08/12/2023 COMPR EHENS STAR METAB OLIC PANEL calcium 8.7 mg/dL 8.4-10 .2 Not Available [facility] (Lab) [address] [place], [address], 08/12/2023 11:42:19 08/12/19 24 08/12/2023 COMPR EHENS STAR METAB OLIC PANEL total protein 6.2 g/dL 6.3-8. 2 low Not Available [facility] (Lab) [address] [place], [address], 08/12/2023 11:42:19 08/12/19 24 08/12/2023 COMPR EHENS STAR METAB OLIC PANEL albumin 3.8 g/dL 3.4-5. 0 Not Available [facility] (Lab) [address] [place], [address], 08/12/2023 11:42:19 08/12/19 24 08/12/2023 COMPR EHENS STAR METAB OLIC PANEL globulin 2.4 g/dL 2.6-4. 2 low Not Available [facility] (Lab) [address] [place], [address], 08/12/2023 11:42:19 08/12/19 24 08/12/2023 COMPR EHENS STAR METAB OLIC PANEL A/G ratio 1.6 ratio 1.0-2. 0 Not Available [facility] (Lab) [address] [place], [address], 08/12/2023 11:42:19 08/12/19 24 08/12/2023 T4 FREE free T4 1.03 NG/dL 0.78-2 .19 Not Available [facility] (Lab) [address] [place], [address], 08/12/2023 11:46:18 08/12/19 24 08/12/2023 T3 FREE free T3 2.9 pg/mL 2.77-5 .27 Not Available [facility] (Lab) [address] [place], [address], 08/12/2023 11:46:28 08/12/19 24 08/12/2023 TSH thyroid-stim ulating hormone 0.108 uIU/m L 0.465- 4.680 low Not Available [facility] (Lab) [address] [place], [address], 08/12/2023 12:01:03 08/12/19 24 08/12/2023 HEATHER TIN ferritin 5 NG/mL 6.24-1 37 low Not Available [facility] (Lab) [address] [place], [address], 08/12/2023 12:01:19 08/12/19 24 08/12/2023 VITAM IN B12 (MIN OG ) vb12 343 pg/mL 239-93 1 Not Available [facility] (Lab) [address] [place], [address], 08/12/2023 12:38:50 08/12/19 24 08/12/2023 FOLAT E, SERUM /PLAS MA folate 15.8 NG/mL 2.76-2 0.0 Not Available [facility] (Lab) [address] [place], [address], 08/12/2023 12:38:55 04/30/19 23 XR, knee No observ ation record ed. [email or web address] [place] [address], [place], [address], 04/29/2022 15:52:18 04/28/19 24 XR, knee No observ ation record ed. [email or web address] [place] [address] [facility] [address], [place], [address], 04/28/2023 14:44:33 Result Notes None recorded. Problems Name Problem SNOMED Code Status Onset Date Resolution Date Notes Provider Name and Address Organization Details Recorded Time Bilateral osteoarthr itis of knees 5522209130682 07 Active 2022 LUX Andersen, [place] [employer] [facility] 3 15:11:05 Benign hypertensi on 17527128 Active Not Available [facility] 3 21:23:57 Abscess 492608519 Active Not Available [facility] 3 21:23:57 Laboratory test result abnormal 081077892 Active 2021 Not Available [facility] 3 21:23:57 Serum iron below reference range 584687148 Active 2021 Not Available [facility] 3 21:23:57 Abdominal pain 85292763 Active Not Available [facility] 3 21:23:57 Post-surgi dereje malabsorpt ion 786945948 Active Not Available [facility] 3 21:23:57 Anemia 124413378 Active Not Available [facility] 3 21:23:57 Multiple joint pain 83258726 Active 2021 Not Available [facility] 3 21:23:57 Osteoarthr itis 361580329 Active 2021 Not Available [facility] 3 21:23:57 Candidiasi s of mouth 90609097 Active Not Available [facility] 3 21:23:57 Fatigue 52134915 Active 2021 Not Available [facility] 3 21:23:57 Vitamin deficiency 05449505 Active Not Available [facility] 3 21:23:57 Problem Notes None recorded. Procedures Surgical History Date Name Laterality Status Provider Name and Address Organization Details Recorded Time Gastric Bypass completed Not Available [facility] 04/22/2022 04:42:13 Gallbladder Surgery completed Not Available [facility] 04/22/2022 04:42:13 procedure on tonsils completed Not Available [facility] 04/22/2022 04:42:13 Colonoscopy completed Not Available [facility] 04/22/2022 04:42:13 Imaging Results Imaging Date Name Status LastModified by Organiz [facility] Details LastModified Time 04/29/2022 XR, knee completed [facility] [place] [address], [place], [address], 04/29/2022 15:52:18 04/28/2023 XR, knee completed [facility] [place] [address], [place], [address], 04/28/2023 14:44:33 Procedure Notes None recorded. Medical Equipment None Reported. Allergies Allergen ID Allergen Name Allergen Category Reaction Reaction Severity Criticality Documentation Date Start Date Code Code System Note Provider Name and Address Organization Details Recorded Time 7252 Non-stero idal anti-infl ammatory agent (product) medicatio n Not available Not available Not available 04/22/2022 10373 005 SNOMED Not Available [facility] 3 04:58:38 Medications Name Sig Start Date [...] suspension for injection in office 2023 active [facility]: 0003- 0494- 20 Not Available Not Available [...] administe red by the provider 07/02 completed [facility]: 0409- 4276- 17 Not Available Not Available Not Available Suprep Bowel Prep Kit 17.5 gram-3.13 gram-1.6 gram oral solution 06/30 completed Not Available Not Available Not Available ropivacaine (PF) 5 mg/mL (0.5 %) injection solution in office 2023 active [facility] 13278 -064- 01 Not Available Not Available Not Available Fluzone Quad (PF) 60 mcg (15 mcg x 4)/0.5 mL IM syringe PHARMACIS T ADMINISTE RED IMMUNIZAT ION ADMINISTE RED AT TIME OF DISPENSIN G active Not Available Not Available No t Available Vitals Date Recorded Body height Provider Name an d Address Organization Details Last Updated DateTime 04/29/2022 165.1 cm LUX Andersen [place] 04/29/2022 15:10:42 Date Recorded Body height Body mass index (BMI) Body weight Provider Name and Address Organization Details Last Updated DateTime 07/29/2022 162.56 cm 46.9 kg/m2 112677.72 g LUX Andersen [place] 07/29/2022 15:15:48 Date Recorded Body height Provider Name an d Address Organization Details Last Updated DateTime 10/30/2022 162.56 cm [facility]cocer [facility] [employer] 10/30/2022 14:05:40 Date Recorded Body height Body mass index (BMI) Body weight Provider Name and Address Organization Details Last Updated DateTime 01/27/2023 162.56 cm 47.5 kg/m2 437814.09 g Xiomara Anderson CNA [facility] 01/27/2023 13:54:58 Date Recorded Body height Provider Name an d Address Organization Details Last Updated DateTime 04/28/2023 162.56 cm [facility] [place] 04/28/2023 14:22:24 Social History Question Answer Notes LastModified by Organizat ion Details LastModified Time Tobacco Smoking Status Never Smoker Not Available [facility] 04/22/2022 04:28:55 Do You Have An Advance Directive? No [id number] Information not available 04/22/2022 What Is Your Level Of Alcohol Consumption? None [id number] Information not available 04/22/2022 What Is Your Level Of Caffeine Consumption? Moderate [id number] Information not available 04/22/2022 In The 14 Days Before Symptom Onset, Have You Had Close Contact With A Laboratory-confir med COVID-19 While That Case Was Ill? No [id number] Information not available 04/22/2022 In The 14 Days Before Symptom Onset, Have You Had Close Contact With A Person Who Is Under Investigation For COVID-19 While That Person Was Ill? No [id number] Information not available 04/22/2022 What Type Of Diet Are You Following? REGULAR [id number] Information not available 04/22/2022 What Is The Highest Grade Or Level Of School You Have Completed Or The Highest Degree You Have Received? [id number] [id number] Information not available 04/22/2022 What Is Your Occupation? [employer] [id number] Information not available 04/22/2022 Have There Been Any Changes To Your Family Or Social Situation? No [id number] Information not available 04/22/2022 What Is The Fluoride Status Of Your Home? Unknown [id number] Information not available 04/22/2022 Where Do You Live? [place] [id number] Information not available 04/22/2022 Do You Have A Medical Power Of Cell Lead? No MIGRATION.36473 70584 Information not available 04/22/2022 What Was The Date Of Your Most Recent Tobacco Screening? 02/10/2022 [id number] Information not available 04/22/2022 Do You Have Any Pets? No MIGRATION.78303 [id number] Information not available 04/22/2022 Do You Have Smoke And Carbon Monoxide Detectors In Your Home? Yes MIGRATION.56856 47287 Information not available 04/22/2022 Are You Passively Exposed To Smoke? No MIGRATION.60449 29801 Information not available 04/22/2022 Are There Any Smokers In Your House? No MIGRATION.17967 [id number] Information not available 04/22/2022 Do You Feel Stressed (tense, Restless, Nervous, Or Anxious, Or Unable To Sleep At Night)? [id number] MIGRATION.87609 81902 Information not available 04/22/2022 Do You Use Any Illicit Or Recreational Drugs? No MIGRATION.23340 44703 Information not available 04/22/2022 Have You Recently Traveled Abroad? No MIGRATION.27132 92891 Information not available 04/22/2022 Do You Have Any Dietary Restrictions? No MIGRATION.36222 67442 Information not available 04/22/2022 Do You Or Have You Ever Used Any Other Forms Of Tobacco Or Nicotine? No MIGRATION.05973 07463 Information not available 04/22/2022 Sex: Unknown Functional Status None recorded. Mental Status None recorded. Family History Relationship Description Onset Age of this Age Resolved Age Notes LastModified by Organization Details LastModified Time Mother Family history of stroke [id number] Not available 04/22/2022 04:42:18 Mother Hypertensive disorder MIGRATION.272 [id number] Not available 04/22/2022 04:42:18 Father Family history of malignant neoplasm MIGRATION.428 [id number] Not available 04/22/2022 04:42:18 Father Heart disease [email or web address] Not available 2022 15:10:11 Mother Diabetes mellitus [email or web address] Not available 2022 15:10:27 Medical History Condition Response ARTHRITIS Y ULCERS Y USE OF NSAIDS Y Gynecological HistoryNo gynecological history recorded. Obstetrics History GPAL:G 0 P 0 0 0 0 Immunizations Vaccine Type Date Status Note Provider Nam e and Address Organization Details Recorded Time influenza, unspecified formulation 3 completed [place] [employer] 01/06/2023 12:56:47 COVID-19, mRNA, LNP-S, PF, 30 mcg/0.3 mL dose 3 [place] [employer] 01/06/2023 12:56:54 COVID-19, mRNA, LNP-S, PF, 30 mcg/0.3 mL dose 1 completed Not Available [facility] 07/01/2022 21:23:57 COVID-19, mRNA, LNP-S, PF, 30 mcg/0.3 mL dose 1 [facility] 21:23:57 COVID-19, mRNA, LNP-S, PF, 30 mcg/0.3 mL dose 1 completed Not Available [facility] 07/01/2022 21:23:57 Influenza, split virus, quadrivalent, PF 6 completed Not Available [facility] 07/01/2022 21:23:57 Past Encounters Encounter ID Performer Location Encounter Start Date Encounter Closed Date Diagnosis/Indication Diagnosis SNOMED-CT Code Diagnosis ICD10 Code Diagnosis Note [id number] [facility] [address] [place] [address] 06/19/2020 00:00:00 06/19/2020 15:04:37 [id number] [facility] [address] [place] [address] 09/20/2020 00:00:00 09/20/2020 15:59:27 [id number] [facility] [address] [place] [address] 01/01/2021 00:00:00 01/01/2021 14:09:44 [id number] [facility] [address] [place] [address] 04/02/2021 00:00:00 04/02/2021 15:05:46 [id number] [facility] [address] [place] [address] 07/02/2021 00:00:00 07/02/2021 16:07:10 [id number] [facility] [place] [address] [facility] [address] , [place] [address] 08/21/2021 00:00:00 08/31/2021 12:23:50 [id number] [facility] [address] [place] [address] 10/15/2021 00:00:00 10/15/2021 16:34:19 [id number] [facility] [address] [place] [address] 01/14/2022 00:00:00 01/14/2022 14:10:37 [id number] [facility] [place] [address] [facility] [address] [place] [address] 02/10/2022 00:00:00 02/13/2022 12:50:09 [id number] TONE Albrecht [facility] [address] [place] [address] 04/29/2022 14:59:07 04/29/2022 16:04:37 Osteoarthritis [id number] M17.0 [id number] TONE Albrecht [facility] [address] [place] [address] 07/29/2022 14:48:21 07/29/2022 16:00:57 Bilateral osteoarthritis of knees [id number] 09981 M17.0 [id number] TONE Albrecht [facility] [address] [place] [address] 10/30/2022 13:49:08 10/30/2022 15:00:26 Bilateral osteoarthritis of knees [id number] M17.0 [id number] TONE Wood [facility] [address] [place] [address] 01/27/2023 13:46:13 01/27/2023 14:05:19 Bilateral osteoarthritis of knees [id number] 01904 M17.0 [id number] TONE Albrecht [facility] [place] [address] [facility] [address] [place] [address] 04/28/2023 14:20:01 04/28/2023 15:13:55 Bilateral osteoarthritis of knees [id number] M17.0 Health Concerns Section Related Observation LastModified by Organization Detai ls LastModified Time None Recorded Concern Status LastModified by Organization Details LastModified Time None Recorded Advance Directives Directive N: Payers Encounter Date Sequence Insurance Name Policy Number Policy Donohue Covered Member ID Donohue Member ID Guarantor Name 04/29/2022 1 [employer] [id number] Jessie L Nguyen [id number] Jessie L Nguyen 07/29/2022 1 [employer] [id number] Jessie L Nguyen [id number] Jessie L Nguyen 10/30/2022 1 [employer]US [id number] Jessie L Nguyen [id number] Jessie L Nguyen 01/27/2023 1 [employer]US [id number] Jessie L Nguyen [id number] Jessie L Nguyen 04/28/2023 1 [employer] [id number] Jessie L Nguyen [id number] Jessie L Nguyen Notes Date Note Type [...] cortisone injections both knees. TONE Wood [address] [facility], [place], [address], [place] [employer] 01/27/2023 14:20:26 OBGyn Episode No OBEpisode recorded.
[2024-05-11 12:09] LABS: Iron 49 ug/dL (37-170)
[2024-05-11 12:19] LABS: Percent Iron Saturation 10 % (20-50)
[2024-05-11 12:44] LABS: Ferritin 8.45 ng/mL (11.1-264)
[2024-05-11 13:08] LABS: Folic Acid > 20.0 ng/mL (2.76->20)
== END 2024-05-11 10:52 | disposition home or self-care (01) ==
LOC: ANHLAB 10:52
PROVIDERS: Visit Provider Internal Medicine Hematology & Oncology
DX: D64.9 Anemia, unspecified (principal)
CPT/HCPCS: 36415; 82607; 82728; 82746; 83540; 83550; 85027

== ENCOUNTER 2024-11-29 13:47 | Outpatient (CLI) | payer BC, SELFPAY ==
--- NOTE | ~2024-11-29 | MM_ITS ---
EXAMINATION: MM screening ajay BI w shahid HISTORY: Screening TECHNIQUE: Craniocaudal and mediolateral oblique 3-D tomosynthesis images were obtained and synthetic 2-D images were generated. CAD analysis was submitted and interpreted. COMPARISON: 11/26/2023 BREAST PARENCHYMAL COMPOSITION: There are scattered areas of fibroglandular density. FINDINGS: There is no evidence of suspicious mass, calcification, or architectural distortion to suggest malignancy in either breast. IMPRESSION: 1. No mammographic evidence of malignancy. 2. Recommend routine screening mammography in one year. BI-RADS Category 1: Negative Reviewed, dictated and finalized at location B.
== END 2024-11-29 13:48 | disposition home or self-care (01) ==
LOC: MICIMG 13:48
PROVIDERS: PCP Obstetrics & Gynecology Gynecology; Visit Provider Obstetrics & Gynecology Gynecology
DX: Z12.31 Encounter for screening mammogram for malignant neoplasm of breast (principal)
CPT/HCPCS: 77063; 77067